=== PATIENT | male | born 1965 | race Caucasian/White ===

== ENCOUNTER 2019-07-17 07:44 | Outpatient (CLI) | payer OTHER, SELFPAY ==
--- NOTE | ~2019-07-17 | NM_ITS ---
EXAMINATION: NM jessica stress w perfusion DATE: 07/17/2019 13:14 INDICATION: Dyspnea on exertion. TECHNIQUE: Rest images were obtained following intravenous administration of 10.9 mCi Tc99m tetrofosm in (Myoview). The patient was infused intravenously with Lexiscan (regadenoson). Then, 29.7 mCi Tc99m tetrofosmin (Myoview) was administered intravenously, and stress images were obtained. Data was valentín nstructed into short axis and horizontal and vertical long axis SPECT images. Gated SPECT images were also obtained. COMPARISON: Chest CT 05/02/2015 FINDINGS: There is no definite reversible or fixed perfusion abnormality to suggest ischemia or infar ction. There is no segmental wall motion abnormality. Left ventricular ejection fraction measures 4 2%. IMPRESSION: 1. No definite ischemia or infarct. 2. Decreased left ventricular ejection fraction measuring 42%. Reviewed, dictated and finalized at location A.
--- NOTE | 2019-07-17 07:55 | EST_ITS ---
Patient Info Name: Stephan Martinez Age: 53 years : 1965 Gender: Male Ht: 72 in Wt: 240 lbs BSA: 2.38 m2 HR: 82 bpm BP: 188 / 116 mmHg Heart Rhythm: Sinus Rhythm Exam Date: 07/17/2019 10:15 AM Exam Location: [facility] Stress Patient Status: Outpatient Admit Date: 07/17/2019 Staff Ordering Physician: Jaycob Lerner DO Attending Provider: Jaycob Lerner DO Exercise Technologist: Martine Steen RDCS Exercise Physician: Jaycob Lerner DO Exam Type: CA stress jessica w NM Study Info Indications - DYSPNEA ON EXERTION A regadenoson stress test was performed. Summary 1. 1. Negative Lexiscan stress test for ischemic ST changes by ECG criteria. 2. 2. Baseline hypertension. 3. 3. Nuclear scan to follow and will be reported separately. Please correlate with it. 4. 4. Patient informed of the above results. Protocol: Lexiscan Stress ECG Details Stage: REST Duration (min): 1 min : 21 sec HR (bpm): 88 SBP (mmHg): --- DBP (mmHg): --- Stage: REST Duration (min): 2 min : 0 sec HR (bpm): 82 SBP (mmHg): 212 DBP (mmHg): 119 Stage: REST Duration (min): 18 min : 22 sec HR (bpm): 85 SBP (mmHg): 188 DBP (mmHg): 116 Stage: STAGE 1 Duration (min): 0 min : 59 sec HR (bpm): 94 SBP (mmHg): 213 DBP (mmHg): 132 Stage: RECOVERY Duration (min): 1 min : 0 sec HR (bpm): 100 SBP (mmHg): 213 DBP (mmHg): 132 Stage: RECOVERY Duration (min): 2 min : 0 sec HR (bpm): 97 SBP (mmHg): 188 DBP (mmHg): 119 Stage: RECOVERY Duration (min): 3 min : 0 sec HR (bpm): 98 SBP (mmHg): 186 DBP (mmHg): 114 Stage: RECOVERY Duration (min): 3 min : 17 sec HR (bpm): 96 SBP (mmHg): 186 DBP (mmHg): 114 Rest HR: 85 bpm Peak HR: 101 bpm Rest Sys BP: 188 mmHg Peak Sys BP: 213 mmHg Max Pred HR: 167 bpm % Max Pred HR: 60 % Target HR: 142 bpm Max RPP: 21,513 bpm*mmHg Termination Reason: Completed protocol Cardiac Symptoms: Shortness of breath Total Time: 1 min : 0 sec Rest Morales BP: 116 mmHg Peak Morales BP: 132 mmHg Total Dose: 0.4 mg Resting ECG Sinus rhythm, cannot rule out septal infarct, age indeterminate. Stress ECG No ST changes. Arrhythmias None. Report Signatures
--- NOTE | 2019-07-17 08:04 | ECHO_ITS ---
Patient Info Name: Stephan Martinez Age: 53 years : 1965 Gender: Male Ht: 74 in Wt: 240 lbs BSA: 2.41 m2 HR: 88 bpm BP: 185 / 122 mmHg Technical Quality: Fair Exam Date: 07/17/2019 8:24 AM Exam Location: [facility] Patient Status: Outpatient Admit Date: 07/17/2019 Staff Ordering Physician: Jaycob Lerner DO Mixing Place Supervisor: Jenny Jurado RDCS Attending Provider: Jaycob Lerner DO Referring Physician: Yann HANCOCK; Exam Type: CA echo doppler color flow Study Info Indications R06.09 - Other forms of dyspnea Complete two-dimensional, color flow and Doppler transthoracic echocardiogram is performed. Summary 1. Left ventricular chamber dimension is normal. 2. Left ventricular systolic function is normal, estimated at 60-65%. 3. There is moderately increased left ventricular wall thickness. 4. The left ventricular diastolic function is grade I diastolic dysfunction. 5. E/e' 14 is mildly elevated. 6. Left atrial chamber dimension is mildly enlarged. 7. Right atrial chamber dimension is mildly enlarged. 8. There is mild to moderate aortic valve regurgitation. 9. No pulmonary hypertension, estimated pulmonary arterial systolic pressure is 29 mmHg. 10. The aortic root size at the sinus of Valsalva is moderately dilated at 4.6 cm. 11. The prox ascending aorta size is moderately dilated at 4.5 cm. Left Ventricle E/e' 14 is mildly elevated. Left ventricular chamber dimension is normal. Left ventricular systolic function is normal, estimated at 60-65%. There is moderately increased left ventricular wall thickness. The left ventricular diastolic function is grade I diastolic dysfunction. Right Ventricle Right ventricular chamber dimension is normal. Right ventricular systolic function is normal. Left Atria Left atrial chamber dimension is mildly enlarged. Right Atria Right atrial chamber dimension is mildly enlarged. Aortic Valve The aortic valve is trileaflet. There is no aortic valve stenosis. There is mild to moderate aortic valve regurgitation. Pulmonic Valve There is no pulmonic regurgitation. Mitral Valve There is no mitral valve stenosis. There is no mitral valve regurgitation. Tricuspid Valve There is no tricuspid valve regurgitation. No pulmonary hypertension, estimated pulmonary arterial systolic pressure is 29 mmHg. Pericardium/Pleural There is no pericardial effusion. Inferior Vena Cava Normal inferior vena cava with >50% collapse upon inspiration consistent with normal right atrial pressure, 5 mmHg. Aorta The aortic root size at the sinus of Valsalva is moderately dilated at 4.6 cm. The prox ascending aorta size is moderately dilated at 4.5 cm. Left Ventricular Outflow Tract Name Value Normal LVOT 2D LVOT Diameter 2.4 cm LVOT Doppler LVOT Peak Gradient 5 mmHg LVOT Mean Gradient 3 mmHg LVOT VTI 22 cm LVOT VTI/AV VTI Ratio 0.9 LVOT Stroke Volume 99 ml LVOT CO 7.7 l/min
== END 2019-07-17 07:45 | disposition home or self-care (01) ==
PROVIDERS: PCP Family Medicine; Visit Provider Internal Medicine Cardiovascular Disease
DX: Z01.810 Encounter for preprocedural cardiovascular examination (principal); I45.10 Unspecified right bundle-branch block; I10 Essential (primary) hypertension; E11.9 Type 2 diabetes mellitus without complications; R94.31 Abnormal electrocardiogram [ECG] [EKG]; R06.09 Other forms of dyspnea; Z98.890 Other specified postprocedural states
CPT/HCPCS: 78452; 93017; 93306; A9502; J2785

== ENCOUNTER 2019-07-24 06:32 | Outpatient (CLI) | payer OTHER, SELFPAY ==
--- NOTE | ~2019-07-24 | CT_ITS ---
EXAMINATION: CTA chest DATE: 07/24/2019 07:04 INDICATION: Thoracic aortic aneurysm without rupture TECHNIQUE: Computed tomographic angiography (CTA) of the chest was performed with 100 mL Omnipque-350 intravenous contrast. Maximum intensity projection 3D-reconstructions of the aorta and other arterie s were constructed by the technologist on a separate workstation. The dose-length product (DLP) was 8 78.92 mGy-cm. Automated exposure control and iterative reconstruction technique were employed. COMPARISON: 05/02/2015 FINDINGS: There has been interval surgical therapy of the ascending aorta. The aortic root measures 5 .8 x 5.4 cm at the level of the main pulmonary artery. This previously measured 4.8 x 4.1 cm on the c omparison examination. There is no evidence of aortic dissection. The heart size is normal. There is mild dependent atelectasis. No pleural effusion or pneumothorax is identified. The heart size is norm al. There is mild thoracic spondylosis. A stable low-attenuation mass of the right adrenal gland is consistent with an adenoma. Stones are present in the nondistended gallbladder. IMPRESSION: 1. Interval treatment of the previously described aortic dissection. 2. Fusiform aneurysm of the ascending aorta measuring up to 5.8 cm at the level of the main pulmonary artery, enlarged since the comparison examination. Reviewed, dictated and finalized at location A.
[2019-07-24 06:56] LABS: Estimated Glomerular Filt Rate 42
== END 2019-07-24 06:33 | disposition home or self-care (01) ==
LOC: ANHIMG 06:34
PROVIDERS: PCP Family Medicine; Visit Provider Internal Medicine Cardiovascular Disease
DX: I71.2 Thoracic aortic aneurysm, without rupture (principal)
CPT/HCPCS: 36415; 71275; Q9967

== ENCOUNTER 2019-11-16 08:08 | Outpatient (CLI) | payer OTHER, SELFPAY ==
[2019-11-16 09:41] LABS: Basophils Absolute Auto 0.1 K/mm3 (0.0-0.1); Basophils Percent Auto 0.7 % (0.2-1.2); Eosinophils Absolute Auto 0.3 K/mm3 (0-0.3); Eosinophils Percent Auto 4.2 % (0-4.4); Hematocrit 45.4 % (42.0-52.0); Hemoglobin 14.9 g/dL (14.0-18.0); Immature Granulocyte Absolute 0.02 K/mm3 (0.00-0.031); Immature Granulocyte Percent A 0.3 % (0-0.5); Lymphocytes Absolute Auto 1.92 K/mm3 (0.9-3.2); Lymphocytes Percent Auto 27.7 % (18.3-44.2); Mean Corpuscular HGB Conc 32.8 g/dl (32-36); Mean Corpuscular Hemoglobin 26.5 pg (26-34); Mean Corpuscular Volume 80.6 fl (80-100); Mean Platelet Volume 9.3 fl (7.4-10.4); Monocytes Absolute Auto 0.6 K/mm3 (0.1-0.6); Monocytes Percent Auto 9.1 % (2.6-8.5); Platelet Count Result 300 k/mm3 (150-375); Red Blood Count 5.63 M/mm3 (4.6-6.20); Red Cell Distribution Width 13.9 % (11.5-14.5); White Blood Count 6.9 K/mm3 (4.5-10.0)
[2019-11-16 09:51] LABS: Albumin Level 4.4 g/dL (3.5-5.1)
[2019-11-16 09:54] LABS: Blood Urea Nitrogen 22 mg/dL (9-20); Calcium 9.2 mg/dL (8.4-10.2); Carbon Dioxide 27 mmol/L (22-30); Chloride 100 mmol/L (98-107); Estimated Glomerular Filt Rate 53; Glucose 93 mg/dL (75-110); Sodium 136 mmol/L (137-145)
[2019-11-16 10:44] LABS: Hemoglobin A1C 5.2 % (<5.7)
[2019-11-16 11:08] LABS: Urine Cotinine NEGATIVE
== END 2019-11-16 08:09 | disposition home or self-care (01) ==
PROVIDERS: Anesthesiology; PCP Family Medicine; Visit Provider Orthopaedic Surgery
DX: M16.12 Unilateral primary osteoarthritis, left hip (principal); I10 Essential (primary) hypertension
CPT/HCPCS: 36415; 80048; 80307; 82040; 83036; 85025; 86850; 86900; 86901; 87081

== ENCOUNTER 2019-11-24 00:26 | Outpatient (CLI) | payer OTHER, SELFPAY ==
[2019-11-25 14:20] LABS: SARS-CoV-2 RNA PCR Negative
== END 2019-11-24 00:27 | disposition home or self-care (01) ==
LOC: ANHCOVIDDT 00:26
PROVIDERS: PCP Family Medicine; Visit Provider Orthopaedic Surgery
DX: Z01.818 Encounter for other preprocedural examination (principal); Z11.59 Encounter for screening for other viral diseases
CPT/HCPCS: 87635; C9803; U0003

== ENCOUNTER → 2020-08-14 12:10 | Outpatient (CLI) | payer OTHER, SELFPAY ==
[2020-08-15 17:57] LABS: SARS-CoV-2 RNA PCR Negative
== END ==
PROVIDERS: PCP Family Medicine; Visit Provider Family Medicine
DX: Z20.822 Contact with and (suspected) exposure to COVID-19 (principal); B34.9 Viral infection, unspecified
CPT/HCPCS: C9803; U0003; U0005

== ENCOUNTER 2022-02-10 08:47 | Outpatient (CLI) | payer OTHER, SELFPAY ==
[2022-02-10 09:26] LABS: Cholesterol 153 mg/dL (0-200); HDL Direct 38 mg/dL; Triglycerides 46 mg/dL (<150)
[2022-02-10 09:36] LABS: LDL Cholesterol Direct 90 mg/dL
== END 2022-02-10 08:48 | disposition home or self-care (01) ==
LOC: ANHLAB 08:51
PROVIDERS: PCP Physician Assistant; Visit Provider Internal Medicine Cardiovascular Disease
DX: I10 Essential (primary) hypertension (principal)
CPT/HCPCS: 36415; 80061

== ENCOUNTER 2022-02-19 14:26 | Outpatient (CLI) | payer OTHER, SELFPAY ==
--- NOTE | ~2022-02-19 | CT_ITS ---
EXAMINATION: CTA chest DATE: 02/19/2022 15:04 INDICATION: Aortic aneurysm. TECHNIQUE: Computed tomographic angiography (CTA) of the chest was performed without and with 100 mL Omnipaque-350 intravenous contrast. Automated exposure control and iterative reconstruction technique were employed. The dose-length product was 1520.99 mGy-cm. Maximum intensity projection 3D-reconstru ctions of the aorta and other arteries were constructed by the technologist on a separate workstation . COMPARISON: Chest CT 07/24/2019 FINDINGS: There is elevation of right hemidiaphragm. The lungs demonstrate mild atelectasis. There ar e nodules in the lungs measuring up to 3 mm, likely benign. No pleural effusion. There is a 7 mm nodu le in right thyroid lobe, likely not clinically significant. Cardiomegaly is noted. No pericardial ef fusion. The central pulmonary arteries are enlarged, consistent with pulmonary arterial hypertension. There are gallstones in the gallbladder, which is normal in size. There is cortical thinning of the kidneys. There are surgical changes of mid ascending aorta. The right measures 4.6 cm of the sinuses of Valsalva, 5.4 cm at the sinotubular junction, 6.1 cm in the proximal ascending aorta, 4.8 cm in th e descending aorta distal to the surgical change, 3.2 cm at the aortic isthmus, and 3.0 cm in the mid descending aorta. IMPRESSION: 1. Fusiform aneurysm of ascending aorta measuring up to 6.1 cm, not significantly changed from 6.0 cm on 07/24/19. Surgical changes of ascending aorta. Reviewed, dictated and finalized at location A. IMPRESSION: 1. Fusiform aneurysm of ascending aorta measuring up to 6.1 cm, not significant ly changed from 6.0 cm on 07/24/19. Surgical changes of ascending aorta.
[2022-02-19 14:49] LABS: Estimated Glomerular Filt Rate 37
== END 2022-02-19 14:27 | disposition home or self-care (01) ==
PROVIDERS: PCP Physician Assistant; Visit Provider Internal Medicine Cardiovascular Disease
DX: I71.21 Aneurysm of the ascending aorta, without rupture (principal); Z98.890 Other specified postprocedural states
CPT/HCPCS: 71275; Q9967

== ENCOUNTER 2022-06-23 07:45 | Outpatient (RCR) | payer OTHER, SELFPAY ==
--- NOTE | 2022-08-19 15:09 | PCPTNOTE ---
Patient did not show up for scheduled evaluation this date.
== END 2022-09-07 10:41 | disposition home or self-care (01) ==
LOC: ANHPT 07:45
PROVIDERS: PCP Physician Assistant; Visit Provider Physician Assistant
DX: Z91.81 History of falling (principal)
CPT/HCPCS: 99199

== ENCOUNTER 2023-06-28 08:58 | Outpatient (CLI) | payer OTHER, SELFPAY ==
--- NOTE | 2023-06-28 09:07 | ECHO_ITS ---
Patient Info Name: Stephan Martinez Age: 57 years : 1965 Gender: Male Ht: 74 in Wt: 245 lbs BSA: 2.44 m2 HR: 99 bpm BP: 163 / 117 mmHg Technical Quality: Fair Exam Date: 06/28/2023 9:15 AM Exam Location: Echo Lab Patient Status: Outpatient Admit Date: 06/28/2023 Staff Ordering Physician: Jaycob Lerner DO Cracking Still Operator: Jenny Jurado RDCS Attending Provider: Jaycob Lerner DO Referring Physician: Yann HANCOCK; Exam Type: CA echo doppler color flow Study Info Indications Z95.2 - Presence of prosthetic heart valve Complete two-dimensional, color flow and Doppler transthoracic echocardiogram is performed. Summary 1. Complete two-dimensional, color flow and Doppler transthoracic echocardiogram is performed. 2. Left ventricular chamber dimension is normal. 3. Left ventricular systolic function is normal, estimated at 60-65%. 4. There is moderate concentric increased left ventricular wall thickness. 5. The left ventricular diastolic function is grade I diastolic dysfunction. 6. E/e' 18 is elevated. 7. Left atrial chamber dimension is mildly enlarged. 8. Bioprosthetic aortic valve. 9. There is trace tricuspid valve regurgitation. 10. No pulmonary hypertension, estimated pulmonary arterial systolic pressure is 33 mmHg. 11. Small linear echogenicity noted on ventricular side of pulmonic valve measuring 0.4-.06 cm which could be artifact vs vegetation. Clinical correlation is advised. 12. There is trace pulmonic regurgitation. Left Ventricle E/e' 18 is elevated. Left ventricular chamber dimension is normal. Left ventricular systolic function is normal, estimated at 60-65%. There is moderate concentric increased left ventricular wall thickness. The left ventricular diastolic function is grade I diastolic dysfunction. Right Ventricle Right ventricular chamber dimension is normal. Right ventricular systolic function is normal. Left Atria Left atrial chamber dimension is mildly enlarged. Right Atria Right atrial chamber dimension is normal. Aortic Valve Bioprosthetic aortic valve. There is no bioprosthetic aortic valve stenosis. There is no regurgitation of the bioprosthetic aortic valve. Pulmonic Valve Small linear echogenicity noted on ventricular side of pulmonic valve measuring 0.4-.06 cm which could be artifact vs vegetation. Clinical correlation is advised. There is trace pulmonic regurgitation. Mitral Valve There is no mitral valve stenosis. There is no mitral valve regurgitation. Tricuspid Valve There is trace tricuspid valve regurgitation. No pulmonary hypertension, estimated pulmonary arterial systolic pressure is 33 mmHg. Pericardium/Pleural There is no pericardial effusion. Inferior Vena Cava Normal inferior vena cava with >50% collapse upon inspiration consistent with normal right atrial pressure, 5 mmHg. Aorta The aortic root size at the sinus of Valsalva is normal. Left Ventricular Outflow Tract Name Value Normal LVOT 2D LVOT Diameter 2.0 cm LVOT Doppler LVOT Peak Gradient 5 mmHg LVOT Mean Gradient 3 mmHg LVOT VTI 19 cm LVOT VTI/AV VTI Ratio 0.8 LV
== END 2023-06-28 08:59 | disposition home or self-care (01) ==
LOC: ANHCARD 08:59
PROVIDERS: PCP Physician Assistant; Visit Provider Internal Medicine Cardiovascular Disease
DX: R93.1 Abnormal findings on diagnostic imaging of heart and coronary circulation (principal); I07.1 Rheumatic tricuspid insufficiency; I37.1 Nonrheumatic pulmonary valve insufficiency; Z95.2 Presence of prosthetic heart valve
CPT/HCPCS: 93306

== ENCOUNTER 2024-02-17 10:13 | Emergency (ER) | payer OTHER, SELFPAY ==
[2024-02-17 10:22] VITALS: BP 133/94; PULSE 70; RESP 16; TEMP 35.8; O2SAT 98
--- NOTE | 2024-02-17 10:33 | ED.GENADULT ---
HPI - General Adult General Chief complaint: Dental/Oral Stated complaint: bump on tongue Time Seen by Provider: 02/17/24 10:33 Source: patient, RN notes reviewed and old records reviewed Mode of arrival: ambulatory Limitations: no limitations History of Present Illness HPI narrative: 58-year-old male presents to the [facility] with a lesion, raised to the top right aspect of the tongue. States has been there for over a month. Reports that he sent a picture to his primary care provider who referred him to urgent care Patient states a couple of days ago he bit his tongue, started bleeding. Onset (ago): month(s) (1+) Related Data Home Medications Medication Instructions Recorded Confirmed carvedilol 25 mg tablet 25 mg PO Q12H 01/28/22 02/17/24 aspirin 81 mg tablet,delayed 81 mg PO DAILY 10/08/22 02/17/24 release (Adult Aspirin Regimen) Allergies Allergy/AdvReac Type Severity Reaction Status Date / Time No Known Allergies Allergy Verified 02/17/24 10:16 Review of Systems Review of Systems: All systems reviewed & are unremarkable except as noted in HPI and below Constitutional: Constitutional: Reports no additional constitutional complaints Eyes: Eyes: Reports no additional eye complaints ENT: Reports as per HPI and Reports other (Tongue lesion) Cardiovascular: Cardiovascular: Reports no additional cardiovascular complaints, Denies chest pain and Denies dyspnea Respiratory: Respiratory: Reports no additional respiratory complaints, Denies chest congestion, Denies cough and Denies dyspnea Gastrointestinal: Gastrointestinal: Reports no additional gastrointestinal complaints, Denies abdominal pain, Denies nausea and Denies vomiting Musculoskeletal: Musculoskeletal: Reports no additional musculoskeletal complaints Integumentary/Breasts: Skin/Breast: Reports system reviewed and no additional complaints, except as docu Neurologic: Reports system reviewed and no additional complaints, except as documented Psychiatric: Psychiatric: Reports no additional psychiatric complaints Allergic/Immunologic: Allergic/Immunologic: Reports no additional allergic/immunologic complaints PMFSH Past Medical History Medical History Osteoarthritis of hips, bilateral Surgical History Surgical History H/O heart surgery ? 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 There is no relevant family history pertinent to the patient complaint. Exam Const: General: cooperative, healthy appearing, comfortable, no acute distress, well developed, alert and well nourished Nutritional Appearance: well nourished Orientation/consciousness: patient oriented x3 Limitations: no limitations HENMT: Head: normal to inspection Ears: hearing grossly normal bilaterally and external ears normal Face/Nose/Sinus: Normal external nose present, normal facial exam and face symmetric Face and sinus: normal facial exam and face symmetric Mouth/tongue images: 1. tongue lesion. Raised. Same color as the rest of the tongue. Eyes: General: appearance normal, both eyes and all related structures Alignment and Position: alignment normal Periorbital: periorbital findings normal Neck: Neck: normal visual inspecti
== END 2024-02-17 10:52 | disposition home or self-care (01) ==
PROVIDERS: Emergency Provider Nurse Practitioner; PCP Physician Assistant
DX: K14.9 Disease of tongue, unspecified (principal); M16.0 Bilateral primary osteoarthritis of hip; Z79.82 Long term (current) use of aspirin
CPT/HCPCS: 99211; G0463

== ENCOUNTER 2024-06-18 18:50 | Emergency (ER) | payer OTHER, SELFPAY ==
--- NOTE | ~2024-06-18 | CT_ITS ---
EXAMINATION: CTA abdomen pelvis DATE: 06/18/2024 20:16 RUNNING INSTRUCTOR INDICATION: Left flank pain TECHNIQUE: Computed tomographic angiography (CTA) of the abdomen and pelvis was performed, with 100 m L Omnipaque-350 intravenous contrast. The dose-length product was 1698.69 mGy-cm. Maximum intensity p rojection 3D-reconstructions of the aorta and other arteries were constructed by the technologist on a separate workstation. FINDINGS/OBSERVATIONS: LOWER CHEST: Prosthetic valve is detected within the aortic position. The heart is enlarged, without pericardial effusion. Bibasilar atelectasis. LIVER: The liver enhances homogeneously, and is markedly enlarged measuring 25 cm in longitudinal dimension. GALLBLADDER AND BILIARY SYSTEM: The gallbladder is distended, containing multiple layering stones, and is otherwise unremarkable. PANCREAS: The pancreas enhances homogeneously and is without ductal dilatation. SPLEEN: The spleen enhances homogeneously and is not enlarged measuring 8 cm in longitudinal dimension. KIDNEYS: A 7.4 mm calculus is identified within the lower pole of the left kidney. The remainder of the bilateral kidneys otherwise enhance symmetrically without hydronephrosis or price tional renal calculi. ADRENAL GLANDS: Unremarkable. GASTROINTESTINAL TRACT: Colonic diverticulosis without surrounding inflammatory change. APPENDIX: The air-filled appendix is of normal caliber (axial series, images 134-154). VASCULATURE: Unremarkable. LYMPH NODES: No pathologically enlarged or morphologically suspicious lymph nodes within the retroperitoneum or at the root of the mesentery. PELVIC STRUCTURES: The bladder is minimally distended, and otherwise unremarkable. The prostate gland is not enlarged. BODY WALL AND MUSCULOSKELETAL: No significant degenerative disease within the lower thoracic or lumbosacral spine. IMPRESSION: 7.4 mm nonobstructing calculus within the lower pole of the left kidney. Colonic diverticulosis without surrounding inflammatory change. Normal appendix. Cholelithiasis without CT evidence of cholecystitis Reviewed, dictated and finalized at location A. ING INSTRUCTOR
--- NOTE | ~2024-06-18 | XR_ITS ---
CHEST RADIOGRAPH CLINICAL HISTORY: LUQ pain, poss lobar PNA . COMPARISON: None available TECHNIQUE: Single portable view of the chest. FINDINGS Sternal wires and mediastinal clips are identified, the wires are midline and intact. A prosthetic valve is identified in the aortic position. The remainder of the cardiomediastinal silhouette is enlarged, but otherwise unremarkable. Elevation of the right hemidiaphragm with adjacent compressive atelectasis. The remainder of the lungs are clear IMPRESSION: No focal infiltrate or effusion. Reviewed, dictated and finalized at location A. RVISOR PLEATING
--- OUTSIDE RECORDS SUMMARY | 2024-06-18 18:52 | XMS_ITS | Clinical Summary ---
Author Organization [facility] Address [address] [address] Care Team Providers Care Solvent Station Attendant Name Role Phone Unavailable Primary Care Provider Unavailabl e Source Comments [facility],non-owned Affiliates and Associated Physician Practices is amultiple site organization consisting of ambulatory clinics and hospital sitesin [place], [place], [place] and [place]. This disclosure is being madepursuant to the Care Everywhere program and may not contain all information available regarding this patient. Last updated 18.[facility] Allergies No known active allergies Medications * Be aware that medications may not be up to date on this document. Alwaysverify current medications with the patient. Medication Sig Dispensed Refills Start Date End Date Status aspirin (ASPIRIN) 81 MG tablet Take 81 mg by mouth once daily Active hydroCHLOROthiazide (HYDRODIURIL) 25 MG tablet TAKE 1 TABLET BY MOUTH EVERY DAY 30 Tab 5 12/24/2015 Active carvedilol (COREG) 25 MG tablet TAKE 1 TABLET BY MOUTH TWICE DAILY(WITH MORNING AND EVENING MEAL) 60 tablet 11 03/08/2017 Active hydroCHLOROthiazide (HYDRODIURIL) 25 MG tablet TAKE 1 TABLET BY MOUTH DAILY 30 tablet 11 04/20/2017 Active warfarin (Coumadin) 5 MG tablet Take 2 (two) tablets by mouth Two times a week 10/08/2022 Active amLODIPine (Norvasc) 5 MG tablet Take 1 (one) tablet by mouth once daily 10/09/2022 Active ciprofloxacin (Cipro) 500 MG tablet 12/03/2022 Active FeroSul 325 (65 Fe) MG tablet 10/27/2022 Active Active Problems Problem Noted Date Diagnosed Date Cervical myelopathy 08/28/2022 12/10/2022 Bacteremia due to Pseudomonas 05/20/2022 Overview (12/10/2022): Last Assessment & Plan: - Plan to continue on chronic suppression with Ciprofloxacin 500 mg BID. He previously completed a 10 week course of IV Cefepime on 07/28/22. Started on chronic suppression 07/29/22 - Concern from an ID standpoint is the possible vegetation seen on the aorta as well as newly placed graft. Due to high risk of graft seeding would plan to continue suppression at this time as he continues to follow with Cardiothoracic surgery. - Labs today: CBC/CMP/ESR/CRP - ECG today with QTc of 446. One of the leads on the ECG was not working, reviewed ECG with attending no concern based on current ECG from today. - Will follow back in 3 months - Discussed again that at any point he develops onset of SOB or chest pain to please present to ER with concern for dissection based on his cardiac history and use of flouroquinolones - We discussed the rational for treatment, culture results, risk of recurrent infection, signs/symptoms of recurrent infection, and to contact ID clinic with any questions or concerns between now and his next visit. Depression 05/20/2022 12/10/2022 Overview (12/10/2022): Last Assessment & Plan: -Patient's mood is very low given long hospitalization and now bacteremia. (History of tearful & feeling depressed) -Ongoing celexa (w baseline QTc) -patient is [employer] and is agreeable to having Spiritual care support Pulmonary embolism 05/18/2022 12/10/2022 Overview (12/10/2022): Last Assessment & Plan: -CT scan-C/A/P- (05/18) with new finding of PE - subsegmental left pulmonary embolism. There is no evidence of right heart strain. -LE venous duplex (05/19) positive right calf DVT -Goal INR 2.0-3.0 -Last night, INR = 2.2 Atrial fibrillation 04/18/2022 12/10/2022 Overview (12/10/2022): Last Assessment & Plan: -Most likely AF with the recent surgery 03/31/22 -Continues on Coumadin & amiodarone therapy (200 mg daily) -Continues in NSR per telemetry Anemia 04/18/2022 12/10/2022 Overview (12/10/2022): Last Assessment & Plan: Expected, due to recent surgery (Post-op ABLA) Labs now switched to twice weekly, during hospital stay Consider transfusing for Hgb < 7 & symptomatic Expect slow uptrend Chronic hepatitis C virus infection 06/20/2015 12/10/2022 Overview (12/10/2022): Last Assessment & Plan: - Patient reports that he has not started any treatment for Hepatitis C. - He reports that when he was last seen by their office, medications were to be mailed out to him. - Per chart review due to insurance he needed to sign Hep C patient contract. At the time this was to be obtained reported that he was in the ICU. - Will reach out to Hepatology to see if medications can be started, or if he would need to follow back up. Essential hypertension 05/30/2015 S/P thoracic aortic aneurysm repair 05/30/2015 Impotence 10/04/2014 Leg pain 09/19/2014 Edema 09/19/2014 Cellulitis and abscess 05/14/2014 Overview (02/07/2015): Immunizations Name Administration Dates Next Due TDAP (7yrs+) 05/14/2014 Family History Medical History Relation Name Comments Negative Family History Other Relation Name Status Comments Other Social History Tobacco Use Types Packs/Day Years Used Date Smoking Tobacco: Never Smokeless Tobacco: Never Tobacco Cessation:Counseling Given: Not Answered Alcohol Use Standard Drinks/Week Comments No 0 (1 standard drink = 0.6 oz pur e alcohol) quit 1999 Sex and Gender Information Value Date Recorded Sex Assigned at Not on file Gender Identity Not on file Sexual Orientation Not on file Last Filed Vital Signs Vital Sign Reading Time Taken Comments Blood Pressure 169/100 01/07/2023 7:44 AM CDT Pulse 78 01/07/2023 7:44 AM CDT Temperature 37 C (98.6 F) 05/19/2014 8:26 AM [employer] Respiratory Rate 20 01/08/2016 9:31 AM CDT Oxygen Saturation 98% 03/08/2017 9:57 AM CDT Inhaled Oxygen Concentration - - Weight 115.4 kg (254 lb 6.4 oz) 03/08/2017 9:57 AM CDT Height 188 cm (6' 2 ) 03/08/2017 9:57 AM CDT Body Mass Index 32.66 03/08/2017 9:57 AM CDT Plan of Treatment Health Maintenance Due Date Last Done Comments COLOGUARD (AGES 45-75) - COL ON CA SCREENING 1965 COLON MONITORING 1965 COLONOSCOPY - COLON CA SCREENING 1965 CT COLONOGRAPHY - COLON CA SCREENING 1965 Colorectal Cancer Screening 1965 FIT - COLON CA SCREENING 1965 FLEX SIG - COLON CA SCREENING 1965 HIV SCREENING 1980 HEPATITIS B VACCINE (1 of 3 - 19+ 3-dose series) 1984 PNEUMOCOCCAL VACCINE 50+ (1 of 2 - PCV) 1984 PNEUMOCOCCAL VACCINE (1 of 2 - PCV) 1984 ZOSTER VACCINE (1 of 2) 12/31/2015 LIPID TESTING 10/03/2019 10/02/2014 COVID-19 VACCINE (1 - 2023-2 5 season) 2024 INFLUENZA VACCINE (#1) 2024 04/09/2020 DEPRESSION SCREENING 05/10/2024 DTAP/TDAP/TD VACCINES (2 - T d or Tdap) 05/14/2024 05/14/2014 HEPATITIS C SCREENING Completed 06/20/2015 HIB VACCINE Aged Out No longer eligi ble based on patient's age to complete this topic HPV VACCINE Aged Out No longer eligi ble based on patient's age to complete this topic MENINGOCOCCAL (Group B) VACCINE Aged Out No longer eligible based on patient's age to complete this topic MENINGOCOCCAL VACCINE Aged Out No nadiya олег eligible based on patient's age to complete this topic Procedures Procedure Name Priority Date/Time Associated Diagnosis Comments LIPID PROFILE Routine 10/02/2014 8:39 AM CDT Leg pain, left Edema from Last 3 Months or Most Recently Relevant to Health Maintenance Results * LIPID PROFILE (10/02/2014 8:39 AM CDT) Cholesterol 159 <200 mg/dL 10/02/2014 9:02 AM CDT [facility] Triglycerides 75 <150 mg/dL 10/02/2014 9:02 AM CDT [facility] HDL Cholesterol 50 >40 mg/dL 10/02/2014 9:02 AM T [facility] LDL Calculated 94 <130 mg/dL 10/02/2014 9:02 AM CDT [facility] VLDL Calculated 15 <=30 mg/dL 10/02/2014 9:02 AM T [facility] Chol HDL Ratio 3.2 <4.5 10/02/2014 9:02 AM T [facility] LDL/HDL Ratio 1.9 <5.0 10/02/2014 9:02 AM T [facility] Blood BLOOD SPECIMEN / Unknown Lab Venipuncture / Unknown 10/02/2014 8:39 AM CDT 10/02/2014 8:43 AM CDT Justin Duque MD LAB - CHEMISTRY [facility] Organization Address City/State/ZIP Co de Phone Number [facility] [address] [place] [id number] from Last 3 Months or Most Recently Relevant to Health Maintenance Additional Health Concerns Infection Onset Date Last Indicated MRSA Comment:05/17/14 abscess; poa; clinda susp 05/17/2014 05/17/2014 Advance Directives * Full Code (Latest Code Status on File) Date Activated Date Inactivated Comments 05/15/2014 2:03 AM 05/19/2014 3:07 PM
--- OUTSIDE RECORDS SUMMARY | 2024-06-18 18:52 | XMS_ITS | Referral Summary ---
Author Organization [facility] Address [address] [place] [address] Care Team Providers Care Motion Picture Projectionist Apprentice Name Role Phone Jaycob Lerner DO Unavailable Rose Barker Primary Care Provider + Karo Perry MD Unavailable Unknown, Notinfile Unavailable Unavailable Miscellaneous, Not In File Unavailable Unava ilable Allergies No known active allergies Medications aspirin 81 mg chewable tabletIndicatio ns:prevention of thrombosis Take 1 tablet (81 mg total) by mouth daily 30 tablet 11 2 Active Additional Information Patient not taking.Reported on 12/03/2022 atorvastatin (LIPITOR) 40 mg tablet Take 1 tablet (40 mg total) by mouth nightly 30 tablet 1 3 Active Additional Information Patient not taking.Reported on 08/13/2022 carvediloL (COREG) 25 mg tablet Take 1 tablet (25 mg total) by mouth 2 (two) times a day with meals 60 tablet 1 3 Active amLODIPine (NORVASC) 5 mg tabletIndicatio ns:hypertension Take 1 tablet (5 mg total) by mouth daily 30 tablet 1 3 Active citalopram (CeleXA) 20 mg tabletIndicatio ns:major depressive disorder Take 1 tablet (20 mg total) by mouth nightly 30 tablet 1 3 Active Additional Information Patient not taking.Reported on 08/13/2022 warfarin (COUMADIN) 4 mg tabletIndicatio ns:Venous Thrombosis,Prev ention of VTE recurrence Take 2 tablets (8 mg total) by mouth daily 60 tablet 1 3 Active Additional Information Patient taking differently:8 mg oral Daily,10 mg two days a week and 8 mg 5 days per week., Indications: Venous Thrombosis, Prevention of VTE recurrence, Reported on 08/13/2022 Mavyret 100-40 mg tablet per tablet TAKE 3 TABLETS BY MOUTH ONCE DAILY FOR 8 WEEKS 3 Active FeroSuL 325 mg (65 mg iron) tablet Take 1 tablet (325 mg total) by mouth daily with breakfast 3 Active warfarin (COUMADIN) 5 mg tablet Take 2 tablets (10 mg total) by mouth 2 (two) times a week 3 Active ciprofloxacin (CIPRO) 500 mg tabletIndicatio ns:Nuclear sclerosis of both eyes 3 Active Active Problems Problem Noted Date Diagnosed Date Nuclear sclerosis of both eyes 03/12/2023 Assessment & Plan (03/12/2023 4:07 PM CDT): Educated on minimal changes, not visually significant. Elects to continue without distance specs, to wear OTC +2.00 Readers No corneal defects, recommended goggles for protection when working with tools. Avoid drops that get the red out , use ATs PRN Lesion of right lower eyelid 03/12/2023 Assessment & Plan (06/06/2023 12:53 AM SHOP COOPER): Risks, benefits and alternatives were discussed. Risks included but were not limited to pain, bleeding, scarring, recurrence, and possible need for additional procedures. Following this discussion, the patient wishes to proceed with right lower eyelid (RLL) lesion excision. This was performed today without any complications. They will follow-up as needed. Assessment & Plan (03/12/2023 4:06 PM CDT): Previous hordeolum/chalazion right lower eyelid (RLL) versus cystic change central. Educated on findings and pt interested in removal, refer to oculoplastics Medication monitoring encounter 12/07/2022 Blurred vision, bilateral 12/07/2022 Assessment & Plan (12/07/2022 8:31 AM CDT): -Referral placed to ophthalmology as patient has not seen one in several years from what he can recall. Skin lesion of right arm 12/07/2022 Assessment & Plan (12/07/2022 8:31 AM CDT): - Referral was previously placed for Dermatology but upon review he is scheduled to follow in March. Will reach out to Dermatology and see if there is anyway he can be seen sooner to evaluate ulcer on his right forearm. Weakness of right lower extremity 08/28/2022 Cervical myelopathy 08/28/2022 Bacteremia due to Pseudomonas 05/20/2022 Assessment & Plan (12/07/2022 8:29 AM CDT): - Plan to continue on chronic suppression [...] concerns between now and his next visit. Assessment & Plan (08/21/2022 5:42 AM CDT): - Plan to continue on chronic suppression with Ciprofloxacin 500 mg BID. Previously completed 10 week course of IV Cefepime on 07/28/22. - Concern from an ID standpoint is the possible vegetation seen on the aortic as well as graft. Due to high risk of graft seeding would plan to continue suppression at this time as he continues to follow with Cardiothoracic surgery. - Labs from 07/29 and 08/05/22 were reviewed. No labs today. - ECG was obtained - Will follow back in 2 months - Will have labs completed the week of 08/31/22 at [facility]. Orders sent. - Discussed that we have attempted to reach out to Rose Barker NP with no success. He is scheduled to follow with her and he will let her know that he is on Ciprofloxacin which can effect the INR. - Discussed that at any point he develops onset of SOB, chest pain to please present to ER with concern for dissection based on his cardiac history and use of flouroquinolones - We discussed the rational for treatment, culture results, risk of recurrent infection, signs/symptoms of recurrent infection, and to contact ID clinic with any questions or concerns between now and his next visit. Assessment & Plan (07/10/2022 10:13 AM SHOP COOPER): - Plan to continue IV Cefepime at this time, at last visit it was discussed that we would plan to compete a total of 8 weeks prior to stopping IV antibiotics. - As of today he has completed a total of 7 weeks. - Will plan to stop IV antibiotics on 07/14/22 per discussion with pt and his on Wednesday. - was not present for visit today. Discussed with patient that we have a few options. First option would be that we stop IV antibiotics at 8 weeks followed by no suppression. Second option is that if he does not want to take PO Ciprofloxacin we could complete a total of 10 weeks IV antibiotics and then stop. If he would like to take Ciprofloxacin then we would plan to stop IV antibiotics at the 8 week natalya (07/14/22) and switch to Ciprofloxacin 500 mg BID. Did discuss as mentioned above our concern with the use of fluoroquinolones and the association between aortic aneurysm and rupture/dissection and fluoroquinolone use poses a risk in this patient who already has a history of aortic dissection. - Labs today: CBC/CMP - ECG today to monitor QTc with plans to possibly start Ciprofloxacin. Previous ECG was completed on 05/23/22: QTc: 486. - Will reach back out to Dr. Perry in regards to what needs to exactly be monitored while patient is on suppression with Ciprofloxacin - Follow-up in 1 month - Will follow-up with patient on Wednesday to discuss with and determine final plan for antibiotics. - Will follow-up on RUBINA scheduled for 07/14/22. - Discussed with patient the rational for treatment, culture results, risk of recurrent infection, signs/symptoms of recurrent infection, and to contact ID clinic with any questions or concerns Assessment & Plan (06/12/2022 12:55 PM SHOP COOPER): - Plan to continue IV Cefepime at this time, will plan to complete at last a minimum of 6 weeks, may possibly extend to complete 8 weeks pending discussion with CTS - Will continue IV cefepime until follow-up with ID - Will reach out to Dr. Perry regarding the graft, and echodensity that was found on the RUBINA (vegetation vs suture) in regards to chronic suppression - As mentioned above there is concern with chronic suppression requiring the use of a fluoroquinolone given the patients history of aortic dissection - There was discussion of a PET scan to evaluate the patients risk of residual infection of the graft material. To date this has not been completed. - There are a few options that we can proceed with from an ID standpoint. We can continue the IV Cefepime and switch to PO suppression with Ciprofloxacin at the 6 week natalya, this would require close monitoring 2/2 history of aortic dissection, or may continue Cefepime with PET scan to evaluate risk of residual infection and pending images could then decide to proceed with suppression or no suppression and monitor. If we decide to not suppress would recommend longer course of IV Cefepime (8-10 weeks) then would stop and monitor off antibiotics. Would monitor for 1 year off antibiotics. - Will continue with weekly CBC/CMP while on IV Cefepime - Discussed with patient the rational for treatment, culture results, risk of recurrent infection, signs/symptoms of recurrent infection, and to contact ID clinic with any questions or concerns Assessment & Plan (06/02/2022 11:06 AM SHOP COOPER): - Appreciate ID consult 05/20 w/ sign off 05/23 as below: Infectious Disease Team: General 3 Infectious Disease Attending: Dr. Susana Comer Medication Recommendations: Drug(s): Cefepime 2 grams IV every 12 hours Duration 6 weeks from 05/19. End date 06/30/22 Firm Stop (Yes/No): no Anticipated Stop Date (note, the following date does not imply an order to stop on that date): 06/29 Labs/Frequency to be Monitored: CBC once a week and CMP once a week Imaging Recommended Before Follow Up (include clinical question to be answered by imaging): no Summary of Consultation: 56 y.o. 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 Discharged to [facility] 04/29/2022 and signed out AMA 05/02. He fell at home and found to have R iliacus and body wall hematoma that had slightly decreased from 04/2022 scan. Transferred to [facility] 05/04. ....Plan will be for at least 6 weeks of cefepime and consider a PET as outpatient to evaluate if need for suppression. RUBINA done 05/22 (result pending). Follow Up Plan: fax results to [phone], follow up with Dr. Maryanne KNOX in 2 weeks, After discharge additional questions can be directed to the clinic at [phone], and Patient has been educated about the risks and benefits of IV antibiotics (OPAT) Assessment & Plan (05/21/2022 12:17 PM SHOP COOPER): 05/18 Blood cultures positive PSEUDOMONAS AERUGINOSA 2 of 2 bottles sensitive to cefepime Daily blood cultures until negative 48 hours. Appreciate ID consult 05/20: Recommendations: - Follow up repeat BCx. - Increase cefepime to 2 gm IV q 8 hr. - Stop vancomycin. - Anticipate at least 6 weeks of cefepime. - After completion of acute treatment with cefepime, would consider oral suppression. I initiated a discussion with patient regarding long-term oral suppression. However the only drug class active against Pseudomonas is the quinolones and this carries an FDA warning for aortic dissection/aneurysm, which the patient may or may not be at increased risk for. At the moment, the patient and I have not arrived at a final decision and I will reach out to Dr. Perry to involve her in the decision- making. - Continue outpatient follow-up with Hepatology who is taking the lead on hepatitis C treatment - notified ID of 1 of 2 blood cultures from 05/19 positive for gram + cocci in clusters with molecular analysis positive for MRSE - no role for additional coverage at this time - RUBINA ordered to r/o valvular vegetations Assessment & Plan (05/20/2022 12:42 PM SHOP COOPER): 05/18 Blood cultures positive PSEUDOMONAS AERUGINOSA 2 of 2 bottles sensitive to cefepime ID consult placed 05/19 - waiting on input but for now continue cefepime and vancomycin Monitor vanc trough Daily blood cultures until negative 48 hours. Depression 05/20/2022 Assessment & Plan (05/22/2022 8:56 AM SHOP COOPER): -Patient's mood is very low given long hospitalization and now bacteremia. (History of tearful & feeling depressed) -Ongoing celexa (w baseline QTc) -patient is Advent and is agreeable to having Spiritual care support Assessment & Plan (05/21/2022 12:29 PM SHOP COOPER): Patient's mood is very low given long hospitalization and now bacteremia. He is tearful this morning. He reports feeling depressed. - started celexa - check baseline QTc - patient is Advent and is agreeable to having Spiritual care come and see him Assessment & Plan (05/20/2022 12:44 PM SHOP COOPER): Patient's mood is very low given long hospitalization and now bacteremia. He is tearful this morning. He reports feeling depressed. - will start celexa - check baseline QTc - patient is Advent and is agreeable to having Spiritual care come and see him Pulmonary embolism 05/18/2022 Assessment & Plan (06/03/2022 10:43 AM SHOP COOPER): -CT scan-C/A/P- (05/18) with new finding of PE - subsegmental left pulmonary embolism. There is no evidence of right heart strain. -LE venous duplex (05/19) positive right calf DVT -Goal INR 2.0-3.0 -Last night, INR = 2.2 Assessment & Plan (05/21/2022 12:36 PM SHOP COOPER): CT scan 05/18 with new finding of PE - subsegmental left pulmonary embolism. There is no evidence of right heart strain. / duplex LE, positive right calf DVT Started on low PTT heparin gtt nomogram and coumadin Continue coumadin Assessment & Plan (05/20/2022 12:26 PM SHOP COOPER): CT scan 05/18 with new finding of PE - subsegmental left pulmonary embolism. There is no evidence of right heart strain. / duplex LE, positive right calf DVT Started on low PTT heparin gtt and coumadin Continue coumadin Atrial fibrillation (CMS/HCC) 04/18/2022 Assessment & Plan (06/03/2022 10:42 AM SHOP COOPER): -Most likely AF with the recent surgery 03/31/22 -Continues on Coumadin & amiodarone therapy (200 mg daily) -Continues in NSR per telemetry Assessment & Plan (05/21/2022 12:12 PM SHOP COOPER): Most likely AF with the recent surgery 03/31/22 Assessment & Plan (05/12/2022 8:04 AM SHOP COOPER): Most likely AF with the recent surgery 03/31/22 Assessment & Plan (04/28/2022 4:01 PM SHOP COOPER): -developed during his post-op stay -Received DCCV/RUBINA on 04/10 -Continue daily amiodarone, at present, plus BB therapy -No longer on anti-coagulation due to recent retroperitoneal bleed - not planning to restart -currently SR -TTE no evidence of thrombi Assessment & Plan (04/24/2022 3:54 PM SHOP COOPER): -developed during his post-op stay -Received DCCV/RUBINA on 04/10 -Continue daily amiodarone, at present, plus BB therapy -No longer on anti-coagulation due to recent retroperitoneal bleed - not planning on restarting -currently SR -ordered TTE to r/o LA thrombus Anemia 04/18/2022 Assessment & Plan (05/26/2022 8:29 AM SHOP COOPER): Expected, due to recent surgery (Post-op ABLA) Labs now switched to twice weekly, during hospital stay Consider transfusing for Hgb < 7 & symptomatic Expect slow uptrend Assessment & Plan (04/28/2022 4:01 PM SHOP COOPER): Expected, due to recent redo sternotomy (cardiac surgery) 04/20 patient with retroperitoneal hematoma s/p fall - imaging without areas of active bleeding Has required multiple units of PRBC with last unit given morning of 04/23 with appropriate response to unit Consider transfusion for Hgb < 7 and symptomatic Daily CBC, while inpatient Expect slow uptrend Continue PPI Assessment & Plan (04/24/2022 3:43 PM SHOP COOPER): Expected, due to recent redo sternotomy (cardiac surgery) 04/20 patient with retroperitoneal hematoma s/p fall - imaging without areas of active bleeding Has required multiple units of PRBC with last unit given morning of 04/23 with appropriate response to unit Consider transfusion for Hgb < 7 and symptomatic Daily CBC, while inpatient Expect slow uptrend Continue PPI High risk medication use 04/18/2022 Assessment & Plan (06/03/2022 10:42 AM SHOP COOPER): -Ongoing coumadin therapy -Pt has Rt LE DVT (per duplex) and PE (per recent CT scan) -Goal INR ~ 2.0-3.0 -Last night, INR = 2.2 on stable dose of coumadin 8 mg -Heparin drip has been discontinued per Dr. Perry Assessment & Plan (04/25/2022 9:20 AM SHOP COOPER): Due to retroperitoneal bleeding coumadin therapy was stopped, not planning to restart resolved Assessment & Plan (04/24/2022 3:47 PM SHOP COOPER): Due to retroperitoneal bleeding coumadin therapy was stopped, not planning to restart resolved Acute on chronic renal failure 03/29/2022 Assessment & Plan (06/03/2022 10:42 AM SHOP COOPER): -Avoiding nephrotoxins, not on lasix -Creat peaked at 1.68 during past admission - creatinine up to 1.9 last night again, hold diuretics, repeat BMP in am Looks like new norm is going to be around ~1.6-1.8 -Stopped lasix related creatinine increase and ~ 9 kg below pre-admission weight Assessment & Plan (05/21/2022 12:29 PM SHOP COOPER): POA Creat peaked at 1.68 during past admission Cr 1.62 Decrease lasix to daily Cbc, BMP daily Will continue to monitor Avoid nephrotoxins Assessment & Plan (05/20/2022 12:06 PM SHOP COOPER): POA Creat peaked at 1.68 during past admission, most recent 1.31 Cr 1.53 Continue lasix bid Cbc, BMP daily Will continue to monitor Avoid nephrotoxins 05/18 NA 128 last night, FW restrict 1L, he had trank almost 2L of soda the day before and NA was 127 Na 135 on AML Assessment & Plan (04/28/2022 4:00 PM SHOP COOPER): Patient carries a history of CKD. No recent labs here On admission - Cr 03/2020 was 1.37 Appears to have developed FOZIA on CKD Cr peaked on 04/20 at 3.09 - continues to down trend with Cr 1.45 on AML Avoiding nephro-toxics Daily BMP, while inpatient Continue I &O, daily weights Lasix daily Assessment & Plan (04/24/2022 3:40 PM SHOP COOPER): Patient carries a history of CKD. No recent labs here On admission - Cr 03/2020 was 1.37 Appears to have developed FOZIA on CKD Cr peaked on 04/20 at 3.09 - continues to down trend with Cr 1.49 on AML Avoiding nephro-toxics Daily BMP, while inpatient Continue I &O, daily weights Assessment & Plan (03/29/2022 3:40 PM SHOP COOPER): Patient carries a history of CKD. No recent labs here - Cr 03/2020 was 1.37 -hold Lisinopril-HCT in lizette-operative setting -hydration with IVFs of NS at 75mL/hr in anticipation of contrast load for testing Coronary artery disease 03/19/2022 Overview (03/24/2022): Added automatically from request for surgery [id number] Assessment & Plan (04/25/2022 9:20 AM SHOP COOPER): See thoracic aortic aneurym problem, above No benjamin, related to elevated BUN/creatinine Assessment & Plan (04/18/2022 2:36 PM SHOP COOPER): See thoracic aortic aneurym problem, above No benjamin, related to elevated BUN/creatinine Primary osteoarthritis of right hip 03/12/2020 Overview (03/12/2020): Added automatically from request for surgery [id number] Hypertension 02/20/2020 Assessment & Plan (12/07/2022 8:42 AM CDT): - Referral placed to Cardiology, he states that 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 BP initially was elevated on arrival. He has stopped taking some of his antihypertensive medications. He would like to establish care. Assessment & Plan (06/03/2022 10:41 AM SHOP COOPER): Ongoing daily amlodipine and BID coreg SBP stable at 105-116/ Assessment & Plan (04/25/2022 9:20 AM SHOP COOPER): -Home meds: coreg and lisinopril-HCT -continue coreg Assessment & Plan (04/24/2022 3:47 PM SHOP COOPER): -Home meds: coreg and lisinopril-HCT -continue coreg Assessment & Plan (03/29/2022 3:37 PM SHOP COOPER): Home meds: coreg and lisinopril-HCT -continue home coreg -hold lisinopril-HCT in pre-op setting Disorder of lipid metabolism 02/20/2020 Primary osteoarthritis of left hip 12/21/2019 Overview (12/21/2019): Added automatically from request for surgery [id number] Chronic hepatitis C virus infection (CMS/HCC) Assessment & Plan (06/12/2022 1:00 PM SHOP COOPER): - Patient reports that he has not [...] he would need to follow back up. Assessment & Plan (05/22/2022 8:54 AM SHOP COOPER): ID note (05/20) with following included: Continue outpatient follow-up with Hepatology who is taking the lead on hepatitis C treatment. Assessment & Plan (04/25/2022 9:20 AM SHOP COOPER): Patient is set to start treatment for Hep C in the next 2 weeks -follows here for Hep C Assessment & Plan (03/30/2022 8:38 AM SHOP COOPER): Patient is set to start treatment for Hep C in the next 2 weeks -follows here for Hep C Assessment & Plan (03/29/2022 3:37 PM SHOP COOPER): Patient is set to start treatment for Hep C in the next 2 weeks -follows here for Hep C Assessment & Plan (03/12/2022 4:18 PM CDT): Patient with hepatitis C, diagnosed 5-10 years ago and is treatment naive. He would like to proceed with treatment. I will get updated labs including genotype as this was last done in 2015. I will also have him undergo a FibroScan to evaluate if he has any hepatic fibrosis from the chronic hep C. Patient is aware to notify our office if he starts any new medications as they can interact with hep C treatment. I discussed the natural history of chronic hepatitis C, including the potential for progression to cirrhosis, liver failure, development of liver cancer, need for a liver transplant, and . I discussed currently available antiviral agents, including their efficacy and adverse effects. I discussed the technique of liver biopsy and the use of liver histology to assist in the decision to use antiviral agents. I discussed risk factors for transmission, based on blood to blood contact. I recommended not sharing a toothbrush or razor blade. The risk of sexual transmission is less than 1% in a monogamous relationship. However, if there is concern, a condom should prevent transmission of the hepatitis C virus. I discussed the effect of heavy alcohol use on hepatitis C and how the disease can be accelerated. We discussed currently available antiviral therapy, including its efficacy, side effects, and cost. If there are concerns of potential treatment side effects, the patient is asked to contact my office. Pre-treatment, end of treatment and three-month follow up labs will be obtained. Currently, I see no obvious contraindications to antiviral therapy. He will return to clinic in 6-12 months. S/P thoracic aortic aneurysm repair 05/30/2015 Assessment & Plan (06/03/2022 10:44 AM SHOP COOPER): -Post-op from 03/31/2022 for: redo sternotomy, replacement of the aortic root (27mm Saavedra Inspiris bioprosthetic valve in 30mm Gelweave graft, 10mm graft to left main coronary artery, direct reimplantation of the right coronary artery), replacement of ascending aorta and hemiarch (30mm Gelweave graft), placement of 8mm Gelweave graft to innominate artery per Dr. Karo Perry. Discharged to acute rehab on 04/29/22. Signed out AMA 05/02 and returned to ER after fall on 05/03. -Ongoing PT/OT (current recommendations for Rehab at discharge, insurance now requesting Peer to Peer Thursday 06/01 -Ongoing coumadin therapy -See bacteremia problem, below Follow up TTE should be obtained june Assessment & Plan (05/21/2022 12:38 PM SHOP COOPER): 03/31/2022 for redo sternotomy, replacement of the aortic root (27mm Saavedra Inspiris bioprosthetic valve in 30mm Gelweave graft, 10mm graft to left main coronary artery, direct reimplantation of the right coronary artery), replacement of ascending aorta and hemiarch (30mm Gelweave graft), placement of 8mm Gelweave graft to innominate artery per Dr. Karo Perry. Discharged to acute rehab on 04/29/22. Signed out AMA 05/02 and returned to ER after fall on 05/03. Accepted in transfer from OSH PT/OT Slight temp /4 with small effusion on CXR- discussed importance of continuing aggressive IS use Continue lasix per Dr Perry, may decrease if cr continue to uptrend - 05/21: decrease to daily Long list of SNF/rehab denials in CM notes - need for custodial IV antibiotic now indicated, will look for LTACH Assessment & Plan (05/19/2022 8:47 AM SHOP COOPER): 03/31/2022 for redo sternotomy, replacement of the aortic root (27mm Saavedra Inspiris bioprosthetic valve in 30mm Gelweave graft, 10mm graft to left main coronary artery, direct reimplantation of the right coronary artery), replacement of ascending aorta and hemiarch (30mm Gelweave graft), placement of 8mm Gelweave graft to innominate artery per Dr. Karo Perry. Discharged to acute rehab on 04/29/22. Signed out AMA 05/02 and returned to ER after fall on 05/03. Accepted in transfer from OSH PT/OT Slight temp /4 with small effusion on CXR- discussed importance of continuing aggressive IS use Continue lasix per Dr Perry, may decrease if cr continue to uptrend Long list of SNF/rehab denials in CM notes Assessment & Plan (04/25/2022 9:21 AM SHOP COOPER): -s/p AVR (27 bio), Ascending, shy-arch repl, cohn graft to Left main per redo sternotomy -Transferred out of ICU 04/17 then transferred back to ICU on 04/20 following fall with retroperitoneal bleed - transfer back to step-down 04/23 -Ongoing post-op care (telemetry, VS, I &O, weights, medication changes) -Ongoing pulmonary toilet plus PT -Continue aspirin, statin, and coreg -Coumadin stopped due to RP bleed, not going to restart -will place on SQ[facility] -PT/OT -diuretics as tolerated -discharge planning Assessment & Plan (04/24/2022 3:57 PM SHOP COOPER): -s/p AVR (27 bio), Ascending, shy-arch repl, cohn graft to Left main per redo sternotomy -Transferred out of ICU 04/17 then transferred back to ICU on 04/20 following fall with retroperitoneal bleed - transfer back to step-down 04/23 -Ongoing post-op care (telemetry, VS, I &O, weights, medication changes) -Ongoing pulmonary toilet plus PT -Continue aspirin, statin, and coreg -Coumadin stopped due to RP bleed, not going to restart -will place on SQ[facility] -PT/OT -diuretics as tolerated -discharge planning Impotence 10/04/2014 Pain of right lower extremity 09/19/2014 Assessment & Plan (05/30/2022 10:05 AM SHOP COOPER): -Pt reported decreased sensation in RLE- unchanged discharge on 04/29/22 w/ weakness noted in right IP and right quadricep weakness 2-3/5 -continue PT/OT & Fall precautions -States previous pain is improved with continue scheduled Gabapentin and PRN Tramadol -Rt Knee buckled, now wears orthotic brace w/ ambulation -Neurology was consulted & following (now have signed off), MRI of pelvis and lumbar spine completed late 05/05, symptoms suggestive of lumobosacral plexopathy in the setting of RP bleed. Less likely considerations would be cervical myelopathy, LEFT subcortical injury, or mononeuropathy multiplex. -Plan for EMG/NCS after discharge, Neuro signed off 05/06 --Neurology to arrange outpatient EMG/NCS. Please provide the patient with the contact information for the [facility] EMG lab below: --Electromyography Studies (EMG) - [phone] - Neurology will arrange outpatient followup. Please provide the contact information for the Neurology outpatient clinic below. The patient will be seeing Dr. Guan. -Neurology - [facility] [address] [facility] [facility] [place] [address] [place] [address] Assessment & Plan (05/21/2022 12:36 PM SHOP COOPER): POA Pt began to complain of lack of feeling in RLE- unchanged from time of discharge on 04/29/22 Palpable pulses bilaterally/ Foot/leg warm to touch/ Weakness noted in right IP and right quadricep weakness 2-3/5 continue PT/OT Fall precautions Neurology was consulted MRI of pelvis and lumbar spine completed late 05/05 Neurology - symptoms suggestive of lumobosacral plexopathy in the setting of RP bleed. Less likely considerations would be cervical myelopathy, LEFT subcortical injury, or mononeuropathy multiplex. Plan for EMG/NCS as outpatient in approx 3 weeks- neurology to set up CT CAP done 05/03 showed reduced size of right illiac hematoma States the pain is improved - on Gabapentin and Tramadol, will keep the same dose today Knee buckled with PT, got orthotic brace for patient which seems to help stability and dc'd sternal precautions discharge planning Assessment & Plan (05/20/2022 12:24 PM SHOP COOPER): POA Pt began to complain of lack of feeling in RLE- unchanged from time of discharge on 04/29/22 Palpable pulses bilaterally/ Foot/leg warm to touch/ Weakness noted in right IP and right quadricep weakness 2-3/5 continue PT/OT Fall precautions Neurology was consulted MRI of pelvis and lumbar spine completed late 05/05 Neurology - symptoms suggestive of lumobosacral plexopathy in the setting of RP bleed. Less likely considerations would be cervical myelopathy, LEFT subcortical injury, or mononeuropathy multiplex. Plan for EMG/NCS as outpatient in approx 3 weeks- neurology to set up CT CAP done 05/03 showed reduced size of right illiac hematoma States the pain is improved - on Gabapentin and Tramadol, will keep the same dose today Knee buckled with PT, got orthotic brace for patient which seems to help stability and dc'd sternal precautions discharge planning Cellulitis and abscess 05/14/2014 Resolved Problems Problem Noted Date Diagnosed Date Resolved Date Hyponatremia 05/21/2022 06/02/2022 Assessment & Plan (05/31/2022 10:16 AM SHOP COOPER): - Most recent NA 134 -Continue FWFR, per oral fluid restrictions -Twice weekly BMP, at present Assessment & Plan (05/21/2022 12:30 PM SHOP COOPER): 05/18 NA 128 last night, FW restrict 1L, he had drank almost 2L of soda the day before and NA was 127 Na 134 on AML Continue FWR Monitor daily BMP Fever 05/18/2022 05/25/2022 Assessment & Plan (05/23/2022 9:39 AM SHOP COOPER): -Patient shivering on morning rounds 05/18 with temp up to 101.3 -Initial checks: Ua (-) -see bacteremia problem -Continues afebrile at present -Consider resolving this problem -dc daily blood cultures per ID, -findings on RUBINA discussed with Dr Perry, suture vs vegetation, she feels that its a suture, ID notified Assessment & Plan (05/20/2022 12:24 PM SHOP COOPER): Patient shivering on morning rounds 05/18 with temp up to 101.3 Ua (-) Broad spectrum abx per Dr Perry - cefepime and vancomycin New PE on CT LE duplex positive for acute DVT Respiratory panel sent (-) 05/18 Blood cultures positive PSEUDOMONAS AERUGINOSA 2 of 2 bottles sensitive to cefepime ID consult placed 05/19 - waiting on input but for now continue cefepime and vancomycin Monitor vanc trough Retroperitoneal bleed 04/24/20222022 Assessment & Plan (05/26/2022 8:49 AM SHOP COOPER): -POA- occurred during last admission -CTA at OSH showed the R iliacus and body wall hematoma is slightly decreased in size since 04/20/22. CT 05/18: right iliacus hematoma extending along the right paracolic gutter/lateral rectus muscle. This was present on MR pelvis dated 05/05/2022. The hematoma has slightly decreased in size measuring 5.0 x 7.9 cm, previously 5.2 x 8.1 cm. -Monitor H/H while restarting anticoagulation - currently stable -CBC daily -Most recent labs continue stable -No active bleeding, will consider resolving this problem Assessment & Plan (05/21/2022 12:37 PM SHOP COOPER): POA- occurred during last admission CTA at OSH showed the R iliacus and body wall hematoma is slightly decreased in size since 04/20/22. CT 05/18: right iliacus hematoma extending along the right paracolic gutter/lateral rectus muscle. This was present on MR pelvis dated 05/05/2022. The hematoma has slightly decreased in size measuring 5.0 x 7.9 cm, previously 5.2 x 8.1 cm. Monitor H/H while restarting anticoagulation - currently stable CBC daily Most recent labs have been stable Assessment & Plan (05/20/2022 12:33 PM SHOP COOPER): POA- occurred during last admission CTA at OSH showed the R iliacus and body wall hematoma is slightly decreased in size since 04/20/22. CT 05/18: right iliacus hematoma extending along the right paracolic gutter/lateral rectus muscle. This was present on MR pelvis dated 05/05/2022. The hematoma has slightly decreased in size measuring 5.0 x 7.9 cm, previously 5.2 x 8.1 cm. Monitor H/H while restarting anticoagulation - currently stable CBC daily Most recent labs have been stable Assessment & Plan (04/26/2022 10:20 AM SHOP COOPER): S/p fall on 04/20 with retroperitoneal bleed - imaging with no areas of active bleeding Stopped heparin drip and coumadin, not planning to restart anti-coagulation Has required multiple units of PRBC with last unit given morning of 04/23 with appropriate response to unit PT reached out with concerns regarding ongoing worsening weakness of R hip flexors and quadriceps muscle, discussed w/ patient that the numbness and weakness may remain until the RP bleed is completely resolved and to continue strengthening exercises and ambulation only with assistance and as directed Assessment & Plan (04/24/2022 3:54 PM SHOP COOPER): S/p fall on 04/20 with retroperitoneal bleed - imaging with no areas of active bleeding Stopped heparin drip and coumadin, not planning to restart anti-coagulation Has required multiple units of PRBC with last unit given morning of 04/23 with appropriate response to unit Leukocytosis 04/20/2022 04/25/2022 Assessment & Plan (04/25/2022 9:21 AM SHOP COOPER): Empiric ceftriaxone ended WBC wnl Afebrile Cultures were negative CBC daily Assessment & Plan (04/24/2022 3:49 PM SHOP COOPER): Empiric ceftriaxone ends today WBC wnl Afebrile Cultures were negative CBC daily Pain 04/18/2022 04/25/2022 Assessment & Plan (04/24/2022 3:49 PM SHOP COOPER): Expected, due to recent surgery per redo sternotomy Ongoing PRN tylenol which he has not taken past 24 hours Ascending aortic aneurysm, u nspecified whether ruptured 03/29/2022 03/29/2022 Aortic aneurysm without rupture 03/29/2022 03/29/2022 Infectious viral hepatitis 03/29/2022 1 05/29/2021 Aneurysm of ascending aorta without rupture 03/19/2022 04/18/2022 Overview (03/24/2022): Added automatically from request for surgery [id number] Assessment & Plan (03/30/2022 8:38 AM SHOP COOPER): History of emergent type A aortic dissection repair per Dr. Celaya in 2014. Imaging in February showing ascending aorta of 6.1cm, he presents today in anticipation of ascending aortic and shy arch replacement with possible root replacement per Dr. Perry on 03/31. -pre-op labs and ECG -ordered TAVR CT (low dose protocol) -down for TTE today -Cancelled LHC per Dr. Perry -needs IV hydration due to CKD - start IVFs of NS at 75ml/hr -continue home coreg, hold lisinopril-HCTZ in lizette-op setting Assessment & Plan (03/29/2022 3:33 PM SHOP COOPER): History of emergent type A aortic dissection repair per Dr. Celaya in 2014. Imaging in February showing ascending aorta of 6.1cm, he presents today in anticipation of ascending aortic and shy arch replacement with possible root replacement per Dr. Perry on 03/31. -pre-op labs and ECG -ordered TAVR CT (low dose protocol) -ordered echo -ordered LHC -needs IV hydration due to CKD - start IVFs of NS at 75ml/hr -continue home coreg, hold lisinopril-HCTZ in lizette-op setting Irregular heartbeat 02/20/2020 04/18/20 22 Overweight 02/20/2020 04/18/2022 Edema 09/19/2014 05/26/2022 Immunizations Name Administration Dates Next Due Hep B Vaccine 06/20/2015 Influenza, Quadrivalent, Spl it, Preservative Free, Intramuscular 04/09/2020 Influenza, Unspecified 05/10/2015 Pfizer SARS-CoV-2 Monovalent Vaccination (12+ Yrs) PURPLE 10/30/2020 Tdap 05/14/2014 Social History Tobacco Use Types Packs/Day Years Used Date Smoking Tobacco: Never Smokeless Tobacco: Never Tobacco Cessation:Counseling Given: Not Answered Alcohol Use Standard Drinks/Week Comments Never 0 (1 standard drink = 0.6 oz pur e alcohol) OASIS D0700: Social Isolation Answer Da te Recorded Frequency of experiencing loneliness or isolatio n Never 06/05/2022 OASIS A1250: Transportation Answer Date Recorded Lack of Transportation (Medical) No 06/05/2022 Lack of Transportation (Non-Medical) No 06/05/2022 Patient Unable or Declines to Respond No 06/05/2022 OASIS B1300: Health Literacy Answer James e Recorded Frequency of needing help to read materials from doctor or pharmacy Never 06/05/2022 Social Connection and Isolat ion Panel [NHANES] Answer Date Recorded In a typical week, how many times do you talk on the phone with family, friends, or neighbors? More than three times a week 05/06/2022 How often do you get togethe r with friends or relatives? More than three times a week 05/06/2022 How often do you attend [facility] or rastafari services? Never 05/06/2022 Do you belong to any clubs o r organizations such as temple groups, unions, fraternal or athletic groups, or school groups? No 05/06/2022 How often do you attend meet ings of the clubs or organizations you belong to? Never 05/06/2022 Are you , , di vorced, , never , or living with a partner? Living with partner 05/06/2022 AUDIT-C Answer Date Recorded Q1: How often do you have a drink containing alc ohol? Never 08/25/2022 Average Number of Drinks Not on file 023 Frequency of Binge Drinking Not on file 08/08 Overall Financial Resource Strain (CARDIA) Answe r Date Recorded How hard is it for you to pa y for the very basics like food, housing, medical care, and heating? Somewhat hard 05/06/2022 PHQ-2 Answer Date Recorded PHQ-2 Total Score (If total score is 3 or more points, staff should administer the PHQ-9) 0 05/06/2022 Hunger Vital Sign Answer Date Recorded Within the past 12 months, y ou worried that your food would run out before you got the money to buy more. Never true 06/15/19 23 Within the past 12 months, t he food you bought just didn't last and you didn't have money to get more. Never true 06/15/2022 PRAPARE - Transportation Answer Date Re corded In the past 12 months, has l ack of transportation kept you from medical appointments or from getting medications? No 04/10 In the past 12 months, has l ack of transportation kept you from meetings, work, or from getting things needed for daily living? No 05/06/2022 Housing Stability Vital Sign Answer James e Recorded In the last 12 months, was t here a time when you were not able to pay the mortgage or rent on time? No 05/06/2022 In the last 12 months, how many places have you lived? 1 05/06/2022 In the last 12 months, was t here a time when you did not have a steady place to sleep or slept in a chcf (including now)? No 05/06/2022 Personal Safety Answer Date Recorded Getting School Help Needed Not on file 10/19 /2024 Sex and Gender Information Value Date Recorded Sex Assigned at Not on file Legal Sex Male 3:56 AM SHOP COOPER Gender Identity Male 03/27/2020 2:49 PM SHOP COOPER Sexual Orientation Straight 03/27/2020 2: 49 PM SHOP COOPER Occupation Industry Job Start Date Job End Date Unemployed Not on file Not on file Not on file Last Filed Vital Signs Vital Sign Reading Time Taken Comments Blood Pressure 146/72 02/10/2023 2:05 PM CDT Pulse 73 02/10/2023 2:05 PM CDT Temperature 36.5 C (97.7 F) 02/10/2023 10:50 AM CDT Respiratory Rate 17 02/10/2023 2:05 PM CDT Oxygen Saturation 90% 02/10/2023 2:05 PM CDT Inhaled Oxygen Concentration - - Weight 111.2 kg (245 lb 2.4 oz) 023 10:50 AM CDT Height 188 cm (6' 2 ) 02/10/2023 10:50 AM CDT Body Mass Index 31.48 02/10/2023 10:50 AM CDT Plan of Treatment Not on file Medical Devices Implanted Type Area Assistant Head Cashier Device Identifier Shelf Expiration Date Model / Serial / Lot Terumo Card[employer] Gelweave 8mm 30cm Suture Retention Unique Hydrolyzable Abdomen [id number] - [id number] - [id number] Implanted:Qty: 1 on 03/31/2022 by Bhavin Bennett MD at [facility] Graft N/A: Heart [employer] [id number] 10/07/2024 [id number] / [id number] / [id number] Ter[employer] Gelweave 30mm 30cm Suture Retention Unique Hydrolyzable Abdomen [id number] - [id number] - [id number] Implanted:Qty: 1 on 03/31/2022 by Karo Perry MD at [facility] Graft N/A: Heart [employer] [id number] 12/07/2024 [id number] / [id number] / [id number] Ter[employer] Gelweave 10mm 30cm Suture Retention Unique Hydrolyzable Abdomen [id number] - [id number] - [id number] Implanted:Qty: 1 on 03/31/2022 by Karo Perry MD at [facility] Graft N/A: Aorta [employer] [id number] 03/09/2024 [id number] / [id number] / [id number] [employer] [id number] 56mm Limit 4 Hole Hip F Hemisphere Offset Shell Acetabular - [id number] - [id number] Implanted:Qty: 1 on 01/29/2020 by Geni March MD at [facility] Left: Hip [employer] 11/28/2029 [id number] / [id number] / [employer] [id number] Trilogy 6.5mm 40mm Self Tap Hip Acetabular Cortical Screw Bone - [id number] Implanted:Qty: 1 on 01/29/2020 by Geni March MD at [facility] Left: Hip [employer] [id number] 10/07/2028 [id number] / / [id number] [employer] [id number] 36mm Lumen Hip F Liner Acetabular Longevity Sterile Latex Free - [id number] - [id number] Implanted:Qty: 1 on 01/29/2020 by Geni March MD at [facility] Left: Hip [employer] 11/26/[id number] / / [employer] [id number] Trilogy 6.5mm 20mm Self Tap Screw Bone - [id number] Implanted:Qty: 1 on 01/29/2020 by Geni March MD at [facility] Left: Hip [employer] [id number] 09/06/2024 [id number] / / [id number] [employer] [id number] 16.25mm 129mm Primary Hip 47mm Taper Straight Extended Offset - S0 - [id number] Implanted:Qty: 1 on 01/29/2020 by Geni March MD at [facility] Left: Hip [employer] [id number] 06/09/2028 [id number] / 0 / [id number] [employer] [id number] 36mm Hip Acetabular +7mm 12/14 Xl Head Femoral Biolox Delta - S0 - [id number] Implanted:Qty: 1 on 01/29/2020 by Geni March MD at [facility] Left: Hip [employer] 06/09/2028 [id number] / 0 / [id number] [employer] [id number] Trilogy 6.5mm 30mm Self Tap Acetabular Cortical Screw Bone - [id number] Implanted:Qty: 1 on 04/08/2020 by Geni March MD at [facility] Right: Hip [employer] [id number] 11/22/2029 [id number] / / [id number] [employer] [id number] M/L 15mm 129mm 42mm Primary Hip 51mm Extend Offset Straight Taper - [id number] Implanted:Qty: 1 on 04/08/2020 by Geni March MD at [facility] Right: Hip [employer] [id number] 07/08/2027 [id number] / / [id number] [employer] [id number] 36mm Hip Acetabular +7mm 12/14 Xl Head Femoral Biolox Delta - [id number] Implanted:Qty: 1 on 04/08/2020 by Geni March MD at [facility] Right: Hip [employer] [id number] 10/07/2028 [id number] / / [id number] [employer] [id number] G7 56mm Limit 4 Hole Hip F Hemisphere Offset Shell Acetabular - [id number] Implanted:Qty: 1 on 04/08/2020 by Geni March MD at [facility] Right: Hip [employer] 11/15/2029 [id number] / / [id number] [employer] [id number] 36mm Lumen Hip F Liner Acetabular Longevity Sterile Latex Free - [id number] Implanted:Qty: 1 on 04/08/2020 by Geni March MD at [facility] Right: Hip [employer] 06/09/2024 [id number] / / [id number] [employer] [id number] Trilogy 6.5mm 40mm Self Tap Hip Acetabular Cortical Screw Bone - [id number] Implanted:Qty: 1 on 04/08/2020 by Geni March MD at [facility] Right: Hip [employer] [id number] 12/20/2029 [id number] / / [id number] [employer] Per[employer] V[employer] 6x6in Patch Thk1.65mm [employer] Ptfe Sterile Latex Free 200587 - [id number] Implanted:Qty: 1 on 03/31/2022 by Bhavin Bennett MD at [facility] [employer] Peripheral [employer]ascular 10/04/2026 [id number] / / [employer] Inspiris Resilia Leaflet Sewing Ring 27mm Valve Aortic Bovine [id number] - [id number] - [id number] Implanted:Qty: 1 on 03/31/2022 by Karo Perry MD at [facility] N/A: Aortic Valve [employer] [id number] 11/05/2025 [id number] / [id number] / Aortic Heart Valve-03/31/2022 Implanted:2021 (Quantity not on file) Aorta [employer] RESILIA - SIZE 27MM [id number] / [id number] / Description:Inspiris Resilia Heart Valve Prosthesis, [employer], [email or web address] Procedures Procedure Name Priority Date/Time Associated Diagnosis Comments HEPATITIS C RNA, QUANTITATIVE, PCR Routine 12/15/2022 9:25 AM CDT Chronic hepatitis C without hepatic coma (CMS/HCC) (HCC) from Last 3 Months or Most Recently Relevant to Health Maintenance Results * Hepatitis C (HCV) RNA PCR, quantitative (12/15/2022 9:25 AM CDT) HCV RNA IU/mL HCV Not Detected IU/mL [facility] - 01 HCV RNA log IU/mL CANCELED log10 IU/mL [facility] - 01 Comment: Unable to calculate result since non-numeric result obtained for component test. Result canceled by the ancillary. Test information Comment [facility] - 01 Comment:The quantitative ran ge of this assay is 15 IU/mL to 100 million IU/mL. HCV genotype CANCELED [facility] - 01 Comment: Not indicated Result canceled by the ancillary. Blood 12/15/2022 9:25 AM CDT 12/15/2022 Narrative [facility] - 12/18/2022 12:10 PM CDT Performed at: - [facility] [address] [id number] Lpta: Luzmaria Moody MD, Phone: [phone] Karla Monroe NP LAB MICROBIOLOGY - GENER AL ORDERABLES Edited Result - Final [facility] - 01 from Last 3 Months or Most Recently Relevant to Health Maintenance Insurance [facility] Advance Directives For more information, please contact: [phone] * Full Code (Latest Code Status on File) Date Activated Date Inactivated Comments 05/04/2022 9:52 AM 06/04/2022 4:12 PM * Full Code Date Activated Date Inactivated Comments 03/31/2022 6:01 PM 04/29/2022 9:03 PM * Full Code Date Activated Date Inactivated Comments 03/29/2022 3:00 PM 03/31/2022 6:01 PM * Full Code Date Activated Date Inactivated Comments 04/08/2020 7:28 PM 04/09/2020 7:17 PM * Full Code Date Activated Date Inactivated Comments 01/29/2020 12:24 PM 01/30/2020 10:07 PM Care Teams Motion Picture Projectionist Apprentice Relationship Specialty Start Date End Date Rose Barker PA [address] [address] PCP - General Physician Plug Maker 03/02/22 Jaycob Lerner DO [address] [place] [address] Referring Physician Cardiology 03/02/22 Karo Perry MD [id number] [place] [address] Surgeon Cardiothoracic Surgery 04/27/22 Unknown, Notinfile 04/27/22 Miscellaneous, Not In File 06/04/22
--- OUTSIDE RECORDS SUMMARY | 2024-06-18 18:52 | XMS_ITS | Patient Health Summary ---
Author Organization [facility] Address [address] [place] [address] Care Team Providers Care Medical Record Librarian Name Role Phone Unavailable Primary Care Provider Unavailabl e Note from [facility],non-owned Affiliates and Associated Physician Practices is amultiple site organization consisting of ambulatory clinics and hospital sitesin [place], [place], [place] and [place]. This disclosure is being madepursuant to the Care Everywhere program and may not contain all information available regarding this patient. Last updated 18.[facility] Allergies No known active allergies Medications * Be aware that medications may not be up to date on this document. Alwaysverify current medications with the patient. * aspirin (ASPIRIN) 81 MG tablet Take 81 mg by mouth once daily * hydroCHLOROthiazide (HYDRODIURIL) 25 MG tablet(Started 12/24/2015) TAKE 1 TABLET BY MOUTH EVERY DAY 5 refills left * carvedilol (COREG) 25 MG tablet(Started 03/08/2017) TAKE 1 TABLET BY MOUTH TWICE DAILY(WITH MORNING AND EVENING MEAL) 11 refills remaining * hydroCHLOROthiazide (HYDRODIURIL) 25 MG tablet(Started 04/20/2017) TAKE 1 TABLET BY MOUTH DAILY 11 refills remaining * warfarin (Coumadin) 5 MG tablet(Started 10/08/2022) Take 2 (two) tablets by mouth Two times a week * amLODIPine (Norvasc) 5 MG tablet(Started 10/09/2022) Take 1 (one) tablet by mouth once daily * ciprofloxacin (Cipro) 500 MG tablet(Started 12/03/2022) * FeroSul 325 (65 Fe) MG tablet(Started 10/27/2022) Active Problems Problem Noted Date Diagnosed Date Cervical myelopathy 08/28/2022 12/10/2022 Bacteremia due to Pseudomonas 05/20/2022 Depression 05/20/2022 12/10/2022 Pulmonary embolism 05/18/2022 12/10/2022 Atrial fibrillation 04/18/2022 12/10/2022 Anemia 04/18/2022 12/10/2022 Chronic hepatitis C virus infection 06/20/2015 12/10/2022 Essential hypertension 05/30/2015 S/P thoracic aortic aneurysm repair 05/30/2015 Impotence 10/04/2014 Leg pain 09/19/2014 Edema 09/19/2014 Cellulitis and abscess 05/14/2014 Immunizations * TDAP (7yrs+)(Given 05/14/2014) Social History Tobacco Use Types Packs/Day Years [...] 37 C (98.6 F) 05/19/2014 8:26 AM [employer] Respiratory Rate 20 01/08/2016 9:31 AM CDT Oxygen Saturation 98% 03/08/2017 9:57 AM CDT Inhaled Oxygen Concentration - - Weight 115.4 kg (254 lb 6.4 oz) 03/08/2017 9:57 AM CDT Height 188 cm (6' 2 ) 03/08/2017 9:57 AM CDT Body Mass Index 32.66 03/08/2017 9:57 AM CDT Procedures * MT CHMSRG MOHS MG TQ T/A/L 1ST STAG 5 BLOCKS(Performed 01/07/2023) Performed for Basal cell carcinoma of right forearm * MT INTMD WND REPAIR TRUNK,ARM,LEG 2.6-7.5(Performed 01/07/2023) Performed for Basal cell carcinoma of right forearm * MT DESTRUCT BENIGN LESION, 1-14(Performed 12/10/2022) Performed for Seborrheic keratosis, inflamed * MT TANGNTL BX SKIN SINGLE LES(Performed 12/10/2022) Performed for Neoplasm of uncertain behavior of skin * DERMATOPATHOLOGY(Performed 12/10/2022) Performed for Neoplasm of uncertain behavior of skin * EKG 12-LEAD(Performed 03/08/2017) Performed for Essential hypertension, Erectile dysfunction, unspecified erectile dysfunction type * EKG 12-LEAD(Performed 07/01/2015) * CREATININE BLOOD - POINT OF CARE (IP)(Performed 06/12/2015) * CT ANGIO CHEST ABDOMEN PELVIS(Performed 06/12/2015) Performed for S/P aortic dissection repair * EKG 12-LEAD(Performed 05/30/2015) * CARDIAC ECHOCARDIOGRAM COMPLETE ORDER(Performed 05/02/2015) * CARDIAC PROCEDURE ORDER(Performed 05/02/2015) * VAS BILATERAL VENOUS DUPLEX LE(Performed 10/19/2014) Performed for Pain of lower leg, unspecified laterality * CK BLOOD(Performed 10/02/2014) Performed for Edema * LIPID PROFILE(Performed 10/02/2014) Performed for Leg pain, left, Edema * BASIC METABOLIC PANEL (CALCIUM TOTAL)(Performed 10/02/2014) Performed for Leg pain, left, Edema * XR KNEE BILAT 2VW OR LESS(Performed 09/19/2014) Performed for Knee pain, unspecified laterality * EKG 12-LEAD(Performed 09/19/2014) Performed for Leg pain, left, Cellulitis and abscess of unspecified site, Edema * CARDIAC RHYTHM STRIP ORDER(Performed 05/21/2014) * VANCOMYCIN LEVEL RANDOM(Performed 05/19/2014) * BASIC METABOLIC PANEL (CALCIUM TOTAL)(Performed 05/19/2014) * CBC W AUTO DIFFERENTIAL(Performed 05/19/2014) * CBC W AUTO DIFFERENTIAL(Performed 05/18/2014) * BASIC METABOLIC PANEL (CALCIUM TOTAL)(Performed 05/18/2014) * PATHOLOGY TISSUE EXAM (STL)(Performed 05/17/2014) * CULTURE TISSUE+GRAM STAIN(Performed 05/17/2014) * CULTURE ANAEROBE(Performed 05/17/2014) * INCISION AND DRAINAGE LEG/KNEE(Performed 05/17/2014) * VANCOMYCIN LEVEL RANDOM(Performed 05/16/2014) * CBC W AUTO DIFFERENTIAL(Performed 05/16/2014) * BASIC METABOLIC PANEL (CALCIUM TOTAL)(Performed 05/16/2014) * CULTURE MRSA(Performed 05/15/2014) * CULTURE ANAEROBE(Performed 05/15/2014) * CULTURE WOUND+GRAM STAIN(Performed 05/15/2014) * CULTURE BLOOD(Performed 05/14/2014) * CBC W AUTO DIFFERENTIAL(Performed 05/14/2014) * COMPREHENSIVE METABOLIC PANEL(Performed 05/14/2014) * CULTURE BLOOD(Performed 05/14/2014) Results * MT INTMD WND REPAIR TRUNK,ARM,LEG 2.6-7.5, MT CHMSRG MOHS MG TQ T/A/L 1ST STAG 5 BLOCKS (1:30 AM CDT) Narrative Kemal Shaw MD - 01/07/2023 11:30 AM CDT Kemal Shaw MD 01/07/2023 1:37 PM Mohs Micrographic Surgery Operative Note Procedure: Mohs micrographic surgery Date of service: 01/07/2023 Location: R proximal FA Preop diagnosis: Basal cell carcinoma, infiltrative subtype Postop diagnosis: Same Mohs AUC score: 8 Number of stages: 1 Preop size: 2.0x1.7cm Postop size: 2.6x2.2cm Depth of final defect: adipose Previous dermpath accession #: [id number] Repair type: intermediate Mohs accession #: [id number] Surgeon and Pathologist: Bradley Shaw MD served as both surgeon and pathologist. No other physician was involved in the cancer removal or pathology interpretation. Assistants: Conrad Anderson MD Indications for Mohs Surgery Removal of the patient's tumor is complicated by the following clinical features: aggressive pattern on initial pathology. Based on my medical judgement, Mohs surgery is the most appropriate treatment for this cancer compared to other treatments. I discussed alternative treatments to Mohs surgery and specifically discussed the risks and benefits of curettage, excision with permanent sections, and foregoing treatment. The rationale for Mohs was explained to the patient and consent was obtained. The risks, benefits and alternatives to therapy were discussed in detail. Specifically, the risks of infection, scarring, bleeding, prolonged wound healing, incomplete removal, allergy to anesthesia, nerve injury and recurrence were addressed. Prior to the procedure, the treatment site was clearly identified and confirmed by the patient. All components of [place] Protocol/PAUSE Rule completed. STAGE I: The patient was placed on the operating table. The cancer was identified and outlined. The entire surgical field was prepped with hibiclens. The surgical site was anesthetized using Lidocaine 1% with epinephrine 1:100,000 buffered with sodium bicarbonate 8.4% in a 1:10 ratio.The area of clinically apparent tumor was debulked with a 2 mm curette. The layer of tissue was then surgically excised using a #15 blade and was then transferred onto a specimen sheet maintaining the orientation of the specimen. Hemostasis was obtained using monopolar electrodesiccation. The wound site was then covered with a dressing while the tissue samples were processed for examination. The specimen was oriented, mapped and divided. Each section was then inked and processed in the Mohs lab using the Mohs protocol and submitted for frozen section. The histopathologic sections were reviewed by the surgeon in conjunction with the reference map. Total blocks: 1 Total slides: 3 Frozen sections were examined by the surgeon. No additional tumor was identified. No additional histologic findings appreciated. Cell morphology: N/A. No tumor seen. Pathological pattern: N/A. No tumor seen. Depth of invasion: N/A. No tumor seen. Scar tissue: Not Present Perineural invasion: Not Present Inflammation obscuring possible tumor presence: Not Present [facility] CLIA # [id number] Mohs dental laboratory technology teacher: Nona Simons MD REPAIR: Intermediate Primary Surgeon: Bradley Shaw MD Elevator Builder: Conard Anderson MD Repair Size: 6.0 cm Sutures: 4-0 monocryl The defect was identified and a marking pen was used to plan the repair. The area was infiltrated with Lidocaine 1% with epinephrine 1:100,000 buffered with sodium bicarbonate 8.4% in a 1:10 ratio, prepped with hibiclens and draped with sterile towels. The wound was debeveled and undermined widely. Cones were excised within relaxed skin tension lines on both sides of the defect. Hemostasis was obtained using monopolar electrodesiccation. The dermis and subcutaneous tissue were then approximated using buried vertical mattress sutures. Percutaneous running subcuticular sutures were carefully placed for maximum eversion and meticulous wound edge approximation. Careful attention was paid to avoid distorting any nearby free margins. The wound was cleansed with saline and ointment was applied along the wound surface. A sterile pressure dressing was applied. Wound care instructions were given verbally and in writing. The patient left the operating suite in stable condition. Patient was informed that additional refinement of the resulting surgical scar may be used as a second stage of this reconstruction. Conrad (Chris) MD Monica Mohs MSDO Fellow, PGY5 I was present for the goldman and critical portions of the procedure and readily available for the remainder of the procedure. Date of Service : 01/07/2023 Kemal Shaw MD Kemal Shaw MD PROCEDURE/MINOR SURG ICAL ORDERABLES * MT DESTRUCT BENIGN LESION, 1-14 (12/10/2022 3:06 PM CDT) Narrative Justin Murray MD - 12/10/2022 3:06 PM CDT Jelani Odom MD 12/10/2022 3:08 PM Diagnosis and treatment options discussed. Discussed high risk of recurrence. Liquid nitrogen was applied to 1 lesions (R lateral jawline) for 5-7 seconds for 2 cycles. Wound care reviewed. Jelani Odom MD [facility] Dermatology Resident, PGY-4 Justin Murray MD PROCEDURE/MINOR SURG ICAL ORDERABLES * MT TANGNTL BX SKIN SINGLE LES (12/10/2022 2:50 PM CDT) Narrative Justin Murray MD - 12/10/2022 2:50 PM CDT Jelani Odom MD 12/10/2022 2:51 PM Risks, benefits and alternatives to shave biopsy were discussed with the patient. Verbal consent was obtained. Location: R prox FA Skin prep: Alcohol Anesthesia: 0.25% bupivacaine with epinephrine Hemostasis: Pressure dressing Dressing and wound care discussed. Specimen(s) placed in a patient labeled container and sent to dermatopathology. Patient agrees to phone call for results and message if not available. Jelani Odom MD [facility] Dermatology Resident, PGY-4 Justin Murray MD PROCEDURE/MINOR SURG ICAL ORDERABLES * DERMATOPATHOLOGY (12/10/2022 3:33 AM CDT) Case Report Dermatopathology Report Case: [id number] Authorizing Provider: Justin Murray MD Collected: 12/10/2022 03:33 AM Ordering Location: [facility] Dermatology Received: 12/10/2022 04:45 PM Pathologist: Kalli Bain MD Specimen: Skin, right prox FA 4:07 PM CDT DERMATOPATHOLOGY LABORATORY Final Diagnosis Specimen A. SKIN, right prox FA: BASAL CELL CARCINOMA, INFILTRATIVE PATTERN (C44.612) 3 4:07 PM CDT DERMATOPATHOLOGY LABORATORY Clinical History BCC vs other 3 4:07 PM CDT DERMATOPATHOLOGY LABORATORY Gross Description Specimen A: Received is one formalin filled container labeled with the patient's name and designated right prox FA. The specimen consists of a shave biopsy measuring [id number] mm. Jar 0. 3 4:07 PM CDT DERMATOPATHOLOGY LABORATORY Microscopic Description Specimen A. SKIN, right prox FA: Within the dermis there are nodular aggregates of basaloid cells associated with fibromyxoid stroma and epithelial-stromal clefts. At the advancing margin of the neoplasm, there are smaller angulated nests that infiltrate the dermis. 3 4:07 PM CDT DERMATOPATHOLOGY LABORATORY Disclaimer An external and internal positive and negative controls are appropriate for the histochemical, immunohistochemical and immunofluorescence stain(s) in this case (if any), except where stated explicitly. The performance characteristics of the stain(s) cited in this report were developed and its performance characteristic determined by the Dermatopathology Laboratory at [facility], directed by Dr. Inge Harrison. These tests need not be, and therefore are not, approved by the [place] Food and Drug Administration. The tests are used for clinical purposes. Billing Codes Specimen Charges Stain Charges 96841 1 3 4:07 PM CDT DERMATOPATHOLOGY LABORATORY Embedded Images 3 4:07 PM CDT DERMATOPATHOLOGY LABORATORY Pathology/Cytolo gy TISSUE SPECIMEN FROM SKIN / Unknown 12/10/2022 3:33 AM CDT 12/10/2022 4:45 PM CDT Jsutin Murray MD LAB - PATHOLOGY/CYTO LOGY ORDERABLES DERMATOPATHOLOGY LABORATORY [facility] - Department of Dermatology [address], [address] [phone] * EKG 12-LEAD (03/08/2017) Only the most recent of4 resultswithin the time period is included. Impressions Kadie Cox - 03/08/2017 Sinus with PACs Nonspecific ST abnormality Justin Duque MD ECG ORDERABLES * CREATININE BLOOD - POINT OF CARE (IP) (06/12/2015 11:12 AM [employer]) Creatinine POCT 0.71 0.7 - 1.2 mg/dL [facility]CT TEST[facility] QC Verified Yes Yes [facility] POC T TESTING Blood specimen (specimen) BLOOD SPECIMEN / Unknown 06/12/2015 11:12 AM [employer] Justin Duque MD LAB - POINT OF CARE ORDERABLES Performing Organization Address City/State/[facility] Co de Phone Number [facility] POCT TESTING [address] [phone] * CT ANGIO CHEST ABD PELVIS (06/12/2015 11:10 AM [employer]) Anatomical Region Laterality Modality Computed Tomogra phy 06/12/2015 12:2 0 PM [employer] Narrative 06/12/2015 2:15 [address] [employer] [address] CT ANGIOGRAM CHEST, ABDOMEN AND PELVIS HISTORY: Aortic dissection repair followup. TECHNIQUE: Precontrast images of the thorax were followed by multiple contiguous axial images of the chest, abdomen and pelvis with intravenous administration of 100 cc Omnipaque 350. There is no prior examination for comparison. Precontrast imaging of the thorax fails to demonstrate evidence of an intramural hematoma within the ascending thoracic aorta. Following intravenous contrast administration, there is normal contrast opacification of the aorta and its branches. The ascending thoracic aorta is mildly ectatic. There is evidence of a circumferential graft within the mid ascending thoracic aorta. The visualized aortic root and coronary arteries appear grossly normal. The heart size is normal. There is a small amount of pericardial fluid. There is soft tissue stranding within the thorax and recent poststernotomy changes are present consistent with recent surgery. No mediastinal hematoma is present. The visualized pulmonary arteries enhance normally. No adenopathy is present. The intra-abdominal aorta and its branches enhance normally. The aorta is normal in caliber. The common iliac, internal and external iliac, common femoral and proximal superficial femoral and profunda femoral arteries enhance normally. There is soft tissue stranding and probable pseudoaneurysm of the right common femoral artery due to recent procedure. Minimal bibasilar dependent atelectasis is present. The lungs are otherwise clear. There is no pleural effusion or pneumothorax. The visualized liver, gallbladder, spleen, pancreas, adrenal glands, kidneys, ureters and bladder appear grossly normal. The prostate gland appears grossly normal. The large and small bowel are grossly normal. There is no free air or free fluid. No adenopathy is seen. DIAGNOSIS: There is graft at the mid ascending thoracic aorta. No evidence of aortic dissection, intramural hematoma or aneurysm is seen. There is a small amount of pericardial fluid. There is a questionable small right common femoral artery pseudoaneurysm. Edited by Lolis Alcala on 06/12/2015 2:08 PM Procedure Note Stefano Chauhan MD - 06/12/2015 CT ANGIOGRAM CHEST, ABDOMEN AND PELVIS HISTORY: Aortic dissection repair followup. TECHNIQUE: Precontrast images of the thorax were followed by multiple contiguous axial images of the chest, abdomen and pelvis with intravenous administration of 100 cc Omnipaque 350. There is no prior examination for comparison. Precontrast imaging of the thorax fails to demonstrate evidence of an intramural hematoma within the ascending thoracic aorta. Following intravenous contrast administration, there is normal contrast opacification of the aorta and its branches. The ascending thoracic aorta is mildly ectatic. There is evidence of a circumferential graft within the mid ascending thoracic aorta. The visualized aortic root and coronary arteries appear grossly normal. The heart size is normal. There is a small amount of pericardial fluid. There is soft tissue stranding within the thorax and recent poststernotomy changes are present consistent with recent surgery. No mediastinal hematoma is present. The visualized pulmonary arteries enhance normally. No adenopathy is present. The intra-abdominal aorta and its branches enhance normally. The aorta is normal in caliber. The common iliac, internal and external iliac, common femoral and proximal superficial femoral and profunda femoral arteries enhance normally. There is soft tissue stranding and probable pseudoaneurysm of the right common femoral artery due to recent procedure. Minimal bibasilar dependent atelectasis is present. The lungs are otherwise clear. There is no pleural effusion or pneumothorax. The visualized liver, gallbladder, spleen, pancreas, adrenal glands, kidneys, ureters and bladder appear grossly normal. The prostate gland appears grossly normal. The large and small bowel are grossly normal. There is no free air or free fluid. No adenopathy is seen. DIAGNOSIS: There is graft at the mid ascending thoracic aorta. No evidence of aortic dissection, intramural hematoma or aneurysm is seen. There is a small amount of pericardial fluid. There is a questionable small right common femoral artery pseudoaneurysm. Edited by Lolis Alcala on 06/12/2015 2:[address] MD [address] ORDERABLES * CARDIAC PROCEDURE ORDER (05/02/2015) Chevy Celaya MD CARDIAC SERVICES ORD ERABLES * CARDIAC ECHOCARDIOGRAM COMPLETE ORDER (05/02/2015) Chevy Celaya MD ECHO ORDERABLES * VAS VENOUS DUPLEX LE BILATERAL (10/19/2014 2:54 PM CDT) Anatomical Region Laterality Modality Echo 10/19/2014 2:03 PM CDT Narrative Procedure Note Keith Guerra MD - 10/25/[address] [place] [address] [facility] Ultrasound Report Pat.Name: GULSHAN NESS Pat.ID: [id number] St.Date: 10/19/2014 Exam Time: 2:03:00 PM Study Type:Venous Reflux Age: 8 1965,48Y Sex: MALE Sonogrphr: Sharmaine Sosa RVT, [facility] Pat. Stat.:Outpatient CPT - 4: 10009 Reason for Study:Edema, Leg pain Procedures:Venous Reflux Complete - Bilateral Visit ID: [id number] SUMMARY: All superficial and deep veins in the lower extremities are compressible. There was no reflux >500 msec identified in the right or left lower extremities. No reflux was seen in the deep venous system. FINDINGS: Procedure: Venous duplex imaging of both lower extremities was performed using color flow and spectral Doppler analysis. B-mode imaging and color flow Doppler was used to evaluate for venous insufficiency with patient in the reverse Trendelenburg position. Study Quality: This study is of adequate technical quality. Signed 10/25/2014 02:20 PM Inge Guerra MD, [facility] Justin Duque MD VASCULAR LAB ORDERAB LES * (ABNORMAL) BASIC METABOLIC PANEL (CALCIUM TOTAL) (10/02/2014 8:39 AM CDT) Only the most recent of4 resultswithin the time period is included. Glucose 89 74 - 106 mg/dL 10/02/2014 9:02 AM [facility] Sodium 135(L) 136 - 145 mmol/L 10/02/2014 9:02 AM [facility] Potassium 4.0 3.5 - 5.1 mmol/L 10/02/2014 9:02 AM [facility] Chloride 101 98 - 107 mmol/L 10/02/2014 9:02 AM [facility] CO2 29 22 - 31 mmol/L 10/02/2014 9:02 AM [facility] Calcium 9.4 8.5 - 10.1 mg/dL 10/02/2014 9:02 AM [facility] Anion Gap 5 5 - 15 mmol/L 10/02/2014 9:02 AM [facility] BUN 27(H) 7 - 21 mg/dL 10/02/2014 9:02 AM [facility] Creatinine 1.12 0.50 - 1.30 mg/dL 10/02/2014 9:02 AM [facility] eGFR by MDRD >60 >60 mL/min/1.7 3m2 10/02/2014 9:02 AM [facility] eGFR by MDRD >60 >60 mL/min/1.7 3m2 10/02/2014 9:02 AM [facility] Blood BLOOD SPECIMEN / Unknown Lab Venipuncture / Unknown 10/02/2014 8:39 AM CDT 10/02/2014 8:43 AM CDT Justin Duque MD LAB - CHEMISTRY [place] Performing Organization Address City/[facility]/ZIP Co de Phone Number [facility] [address] [place] [phone] * CK BLOOD (10/02/2014 8:39 AM CDT) CK 129 35 - 232 U/L 10/02/2014 9:02 AM [facility] Blood BLOOD SPECIMEN / Unknown Lab Venipuncture / Unknown 10/02/2014 8:39 AM CDT 10/02/2014 8:43 AM CDT Justin Duque MD LAB - CHEMISTRY [place] [facility] [address] [place] [phone] * LIPID PROFILE (10/02/2014 8:39 AM CDT) Cholesterol 159 <200 mg/dL 10/02/2014 9:02 AM [facility] Triglycerides 75 <150 mg/dL 10/02/2014 9:02 AM [facility] HDL Cholesterol 50 >40 mg/dL 10/02/2014 9:02 AM [facility] LDL Calculated 94 <130 mg/dL 10/02/2014 9:02 AM [facility] VLDL Calculated 15 <=30 mg/dL 10/02/2014 9:02 AM [facility] Chol HDL Ratio 3.2 <4.5 10/02/2014 9:02 AM [facility] LDL/HDL Ratio 1.9 <5.0 10/02/2014 9:02 AM [facility] Blood BLOOD SPECIMEN / Unknown Lab Venipuncture / Unknown 10/02/2014 8:39 AM CDT 10/02/2014 8:43 AM CDT Justin Duque MD LAB - CHEMISTRY [place] [facility] Organization Address City/State/ZIP Co de Phone Number [facility] [address] [address] * XR KNEE BILAT ONE OR TWO VIEWS (09/19/2014 12:22 PM CDT) Anatomical Region Laterality Modality Lower Extremity Radiographic Nayla ging 09/19/2014 1:37 PM CDT Impressions 09/19/2014 2:26 PM CDT Mild degenerative change is present at the lateral compartment of the right knee. Edited by Bonnie Lockhart on 09/19/2014 2:20 PM Narrative 09/19/2014 2:26 PM CDT BILATERAL KNEES INDICATION: Increasing knee pain times years. FINDINGS: AP and lateral views of both knees are submitted. No pathologic joint effusion, fracture, or dislocation is seen. There is osteophytic spurring at the right lateral femoral condyle. Joint spaces are well-preserved. Procedure Note Loretta Leavitt MD - 09/19/2014 BILATERAL KNEES INDICATION: Increasing knee pain times years. FINDINGS: AP and lateral views of both knees are submitted. No pathologic joint effusion, fracture, or dislocation is seen. There is osteophytic spurring at the right lateral femoral condyle. Joint spaces are well-preserved. IMPRESSION Mild degenerative change is present at the lateral compartment of the right knee. Edited by Bonnie Lockhart on 09/19/2014 2:20 PM Justin Duque MD DIAGNOSTIC IMAGING O RDERABLES * CARDIAC RHYTHM STRIP ORDER (05/21/2014 6:19 PM [employer]) Narrative 05/21/2014 6:19 PM [employer] Ordered by an unspecified provider. Scanned Document CARDIAC SERVICES ORD ERABLES * VANCOMYCIN LEVEL RANDOM (05/19/2014 10:12 AM [employer]) Only the most recent of2 resultswithin the time period is included. Vancomycin Random 16.1 ug/mL 05/19/2014 10:40 AM [employer] [facility] Blood BLOOD SPECIMEN / Unknown Lab Venipuncture / Unknown 05/19/2014 10:12 AM [employer] 05/19/2014 10:17 AM [facility] Narrative [facility] - 05/19/2014 10:40 AM [facility] No reference range available for random Vancomycin levels. All results interpreted by ordering physician. Dylon Villar DO LAB - CHEMISTRY [place] [facility] Organization Address City/State/ZIP Co de Phone Number [facility] [address] [place] [address] * (ABNORMAL) CBC W AUTO DIFFERENTIAL (05/19/2014 5:11 AM [facility]) Only the most recent of4 resultswithin the time period is included. WBC 9.3 4.4 - 10.7 x10^9/L 05/19/2014 5:38 AM [facility] RBC 4.66 3.80 - 5.40 x10^12/L 05/19/2014 5:38 AM [facility] Hemoglobin 13.8 12.0 - 17.6 gm/dL 05/19/2014 5:38 AM [facility] Hematocrit 40.5 35.2 - 51.7 % 05/19/2014 5:38 AM [facility] MCV 86.9 80.7 - 98.3 fl 05/19/2014 5:38 AM [facility] MCH 29.6 26.7 - 34.0 pg 05/19/2014 5:38 AM [facility] MCHC 34.1 30.8 - 35.9 gm/dL 05/19/2014 5:38 AM [facility] Platelet Count 348 153 - 416 x10^9/L 05/19/2014 5:38 AM [facility] RDW-CV 12.8 12.1 - 14.9 % 05/19/2014 5:38 AM [facility] MPV 9.1(L) 9.4 - 12.9 fl 05/19/2014 5:38 AM [facility] Neutrophils % 67.1 44.0 - 73.0 % 05/19/2014 5:38 AM [facility] Lymphocytes % 17.8(L) 20.0 - 43.0 % 05/19/2014 5:38 AM [facility] Monocytes % 8.0 5.0 - 13.0 % 05/19/2014 5:38 AM [facility] Eosinophils % 5.2 0.0 - 6.0 % 05/19/2014 5:38 AM [facility] Basophils % 0.3 0.0 - 2.0 % 05/19/2014 5:38 AM [facility] Immature Granulocytes 1.6(H) 0 - 1 % 05/19/2014 5:38 AM [facility] Neutrophil Absolute 6.25 2.01 - 7.14 x10^9/L 05/19/2014 5:38 AM [facility] Lymphocytes Absolute 1.66 1.07 - 3.94 x10^9/L 05/19/2014 5:38 AM [facility] Monocytes Absolute 0.75 0.26 - 1.07 x10^9/L 05/19/2014 5:38 AM [facility] Eosinophils Absolute 0.48(H) 0 - 0.47 x10^9/L 05/19/2014 5:38 AM [facility] Basophils Absolute 0.03 0 - 0.08 x10^9/L 05/19/2014 5:38 AM [facility] Blood BLOOD SPECIMEN / Unknown Lab Venipuncture / Unknown 05/19/2014 5:11 AM [facility] 05/19/2014 5:27 AM [facility] Dylon Villar DO LAB - HEMATOLOGY ORD ERABLES Performing Organization Address City/State/[facility] Co de Phone Number [facility] [address] [place] [address] * GROSS + MICRO EXAM (STL) (05/17/2014 1:39 PM [facility]) Case Report Surgical Pathology Report Case: [id number] Authorizing Provider: Chun Helm MD Collected: 05/17/2014 01:39 PM Ordering Location: [facility] Received: 05/17/2014 02:23 PM Pathologist: Marlys Meza MD Specimen: Tissue, skin and subcutaneous tissue right thigh 05/21/2014 3:43 PM [facility] Final Diagnosis Skin and soft tissue, right thigh, excision: - Ulceration and subcutaneous abscess KL/vivien 05/21/2014 3:43 PM [facility] Gross Description Received in formalin in a container labeled Gulshan Ness, skin and subcutaneous tissue right thigh. The container holds a 2 x 1.5 x 1 cm mark skin ellipse with attached yellow-mark soft tissue. Sectioning shows a yellow-mark cut surface. Assistant Foreman sections from the midportion of the specimen are submitted in a cassette labeled A1. DYT/rtc 05/21/2014 3:43 PM [facility] Microscopic Description Histologic sections of the right thigh lesion show ulceration with acute and chronic inflammation and abscess formation. There is no evidence of malignancy. KL/vivien 05/21/2014 3:43 PM [facility] Pathology/Cytolo gy TISSUE SPECIMEN / Unknown 05/17/2014 1:39 PM [employer] 05/17/2014 2:23 PM [employer] Comment:unknown Chun Helm MD LAB - PATHOLOGY/CYTO LOGY ORDERABLES Performing Organization Address City/State/[facility] Co de Phone Number [facility] [address] [place] [address] * (ABNORMAL) CULTURE TISSUE+GRAM STAIN (05/17/2014 1:36 PM [employer]) Culture Heavy growth Staphylococcus aureus (MRSA)(AA) JESSY 05/19/2014 9:14 AM [facility] Gram Stain Heavy (> or = 30 per high power field) White blood cells 05/19/2014 9:14 AM [facility] Gram Stain Moderate Gram positive cocci 05/19/2014 9:14 AM [facility] Microbiology SOFT TISSUE BIOPSY SPECIMEN / Unknown 05/17/2014 1:36 PM [employer] 05/17/2014 2:17 PM [employer] Comment:unknown Narrative [facility] - 05/19/2014 9:14 AM [facility] Methicillin Resistant Staphylococci are resistant to all currently available beta-lactam antibiotics with the exception of the newer cephalosporins with anti-MRSA activity. Contact precautions required. Organism Antibiotic Method Susceptibility Staphylococcus aureus methicillin-resistant (MRSA) Ciprofloxacin JESSY <=0.5 ug/mL: Susceptible Staphylococcus aureus methicillin-resistant (MRSA) Clindamycin JESSY 0.25 ug/mL: Susceptible Staphylococcus aureus methicillin-resistant (MRSA) Doxycycline JESSY <=0.5 ug/mL: Susceptible Staphylococcus aureus methicillin-resistant (MRSA) Erythromycin JESSY >=8 ug/mL: Resistant Staphylococcus aureus methicillin-resistant (MRSA) Gentamicin JESSY <=0.5 ug/mL: Susceptible Staphylococcus aureus methicillin-resistant (MRSA) Inducible Clindamycin Resistance JESSY NEG ug/mL: - Staphylococcus aureus methicillin-resistant (MRSA) Levofloxacin JESSY <=0.12 ug/mL: Susceptible Staphylococcus aureus methicillin-resistant (MRSA) Linezolid JESSY 2 ug/mL: Susceptible Staphylococcus aureus methicillin-resistant (MRSA) Oxacillin JESSY >=4 ug/mL: Resistant Staphylococcus aureus methicillin-resistant (MRSA) Tetracycline JESSY <=1 ug/mL: Susceptible Staphylococcus aureus methicillin-resistant (MRSA) Trimethoprim-sulfamethoxa zole JESSY <=10 ug/mL: Susceptible Staphylococcus aureus methicillin-resistant (MRSA) Vancomycin JESSY <=0.5 ug/mL: Susceptible Chun Helm MD LAB - MICROBIOLOGY O ALENA Performing Organization Address City/[facility] Co de Phone Number [facility] [address] * (ABNORMAL) CULTURE ANAEROBE (05/17/2014 1:36 PM [employer]) Only the most recent of2 resultswithin the time period is included. Culture Heavy growth Prevotella bivia(A) JESSY 05/23/2014 8:27 AM [employer] [facility] Comment:Beta Lactamase Posit bry Microbiology SOFT TISSUE BIOPSY SPECIMEN / Unknown 05/17/2014 1:36 PM [employer] 05/17/2014 2:17 PM [employer] Comment:unknown Chun Helm MD LAB - MICROBIOLOGY O uControl Performing Organization Address [facility] Co de Phone Number [facility] [address] [facility] [address] [facility] [address] [place] * (ABNORMAL) CULTURE MRSA (05/15/2014 9:09 PM [employer]) Culture Growth of Staphylococcus aureus (MRSA)(A) JESSY 05/17/2014 7:35 AM [employer] [facility] Microbiology SPECIMEN FROM NASAL FOSSAE / Unknown 05/15/2014 9:09 PM [employer] 05/15/2014 9:16 PM [employer] Narrative [facility] - 05/17/2014 7:35 AM [employer] Methicillin Resistant Staphylococci are resistant to all currently available beta-lactam antibiotics with the exception of the newer cephalosporins with anti-MRSA activity. Contact precautions required. 05/17/2014 7:32 AM Shasta Nunez RN notified. Read back and acknowledged results. Evelin Navarro MT([facility]) Dylon Villar DO LAB - MICROBIOLOGY O RDERABLES [facility] [address] [place] [address], [facility] * (ABNORMAL) CULTURE WOUND+GRAM STAIN (05/15/2014 4:08 PM [employer]) Culture Moderate Growth Staphylococcus aureus (MRSA)(A) JESSY 05/17/2014 11:24 AM [employer] [facility] Gram Stain Heavy White blood cells 05/17/2014 11:24 AM [facility] Gram Stain Light Gram positive cocci 05/17/2014 11:24 AM [employer] [facility] Microbiology SPECIMEN FROM ABSCESS / Unknown 05/15/2014 4:08 PM [employer] 05/15/2014 4:13 PM [employer] Narrative [facility] - 05/17/2014 11:24 AM [employer] Methicillin Resistant Staphylococci are resistant to all currently available beta-lactam antibiotics with the exception of the newer cephalosporins with anti-MRSA activity. Contact precautions required. Organism Antibiotic Method Susceptibility Staphylococcus aureus methicillin-resistant (MRSA) Ciprofloxacin JESSY <=0.5 ug/mL: Susceptible Staphylococcus aureus methicillin-resistant (MRSA) Clindamycin JESSY 0.25 ug/mL: Susceptible Staphylococcus aureus methicillin-resistant (MRSA) Doxycycline JESSY <=0.5 ug/mL: Susceptible Staphylococcus aureus methicillin-resistant (MRSA) Erythromycin JESSY >=8 ug/mL: Resistant Staphylococcus aureus methicillin-resistant (MRSA) Gentamicin JESSY <=0.5 ug/mL: Susceptible Staphylococcus aureus methicillin-resistant (MRSA) Inducible Clindamycin Resistance JESSY NEG ug/mL: - Staphylococcus aureus methicillin-resistant (MRSA) Levofloxacin JESSY <=0.12 ug/mL: Susceptible Staphylococcus aureus methicillin-resistant (MRSA) Linezolid JESSY 2 ug/mL: Susceptible Staphylococcus aureus methicillin-resistant (MRSA) Oxacillin JESSY >=4 ug/mL: Resistant Staphylococcus aureus methicillin-resistant (MRSA) Tetracycline JESSY <=1 ug/mL: Susceptible Staphylococcus aureus methicillin-resistant (MRSA) Trimethoprim-sulfamethoxa zole JESSY <=10 ug/mL: Susceptible Staphylococcus aureus methicillin-resistant (MRSA) Vancomycin JESSY <=0.5 ug/mL: Susceptible Dylon Villar DO LAB - MICROBIOLOGY O RDERABLES Performing Organization Address [facility] Co de Phone Number [facility] [address] [place] [address], [facility] * CULTURE BLOOD (05/14/2014 10:08 PM [employer]) Only the most recent of2 resultswithin the time period is included. [facility] Culture No Growth JESSY 05/20/2014 4:54 AM [facility] Blood PERIPHERAL BLOOD / Unknown Venipuncture / Unknown 05/14/2014 10:08 PM [employer] 05/14/2014 10:17 PM [employer] Arcelia Sepulveda PA-C LAB - MICROBIOLOGY O RDJUANCARLOSBLES Performing Organization Address [facility] Co de Phone Number [facility] [address] [facility] [place] [address], [facility] * (ABNORMAL) COMPREHENSIVE METABOLIC PANEL (05/14/2014 9:26 PM [employer]) Pathologist [facility] Glucose 89 74 - 106 mg/dL 05/14/2014 9:54 PM [facility] Sodium 132(L) 136 - 145 mmol/L 05/14/2014 9:54 PM [facility] Potassium 3.1(L) 3.5 - 5.1 mmol/L 05/14/2014 9:54 PM [facility] Chloride 97(L) 98 - 107 mmol/L 05/14/2014 9:54 PM [facility] CO2 30 22 - 31 mmol/L 05/14/2014 9:54 PM [facility] Calcium 8.9 8.5 - 10.1 mg/dL 05/14/2014 9:54 PM [facility] Anion Gap 5 5 - 15 mmol/L 05/14/2014 9:54 PM [facility] BUN 14 7 - 21 mg/dL 05/14/2014 9:54 PM [facility] Creatinine 1.23 0.50 - 1.30 mg/dL 05/14/2014 9:54 PM [facility] eGFR by MDRD >60 >60 mL/min/1.7 3m2 05/14/2014 9:54 PM [facility] eGFR by MDRD >60 >60 mL/min/1.7 3m2 05/14/2014 9:54 PM [facility] Alkaline Phosphatase 107 38 - 126 U/L 05/14/2014 9:54 PM [facility] ALT 23 12 - 78 U/L 05/14/2014 9:54 PM [facility] AST 15 5 - 40 U/L 05/14/2014 9:54 PM [facility] Protein Total 7.9 6.4 - 8.2 gm/dL 05/14/2014 9:54 PM [facility] Albumin 2.8(L) 3.4 - 5.0 gm/dL 05/14/2014 9:54 PM [facility] Bilirubin Total 1.0 0.2 - 1.0 mg/dL 05/14/2014 9:54 PM [facility] Blood BLOOD SPECIMEN / Unknown Venipuncture / Unknown 05/14/2014 9:26 PM [employer] 05/14/2014 9:35 PM [facility] Arcelia Sepulveda PA-C LAB - CHEMISTRY [place] [facility] Organization Address City/State/ZIP Co de Phone Number [facility] [address] [address]
--- OUTSIDE RECORDS SUMMARY | 2024-06-18 18:52 | XMS_ITS | Clinical Summary ---
Author Organization [facility] Address [address] [place] [address] Care Team Providers Care Fruit Pitter Name Role Phone Jaycob Lerner DO Unavailable [phone] Rose Barker Primary Care Provider + Karo [...] 03/12/2023 Assessment & Plan (06/06/2023 12:53 AM WOOD POLE TREATER): Risks, benefits and alternatives were discussed. Risks [...] visit. Assessment & Plan (07/10/2022 10:13 AM WOOD POLE TREATER): - Plan to continue IV Cefepime at [...] concerns Assessment & Plan (06/12/2022 12:55 PM WOOD POLE TREATER): - Plan to continue IV Cefepime at [...] concerns Assessment & Plan (06/02/2022 11:06 AM WOOD POLE TREATER): - Appreciate ID consult 05/20 w/ sign [...] c/b retroperitoneal bleed and afib). Discharged to [facility] 04/29/2022 and signed out AMA 05/02. He fell at home and found to have R iliacus and body wall hematoma that had slightly decreased from 04/2022 scan. Transferred to [facility] 05/04. ....Plan will be for at least 6 weeks of cefepime and consider a PET as outpatient to evaluate if need for suppression. RUBINA done 05/22 (result pending). Follow Up Plan: fax results to [phone], follow up with Dr. Maryanne KNOX in 2 weeks, After discharge additional questions can be directed to the clinic at [phone], and Patient has been educated about the risks and benefits of IV antibiotics (OPAT) Assessment & Plan (05/21/2022 12:17 PM WOOD POLE TREATER): 05/18 Blood cultures positive PSEUDOMONAS AERUGINOSA 2 [...] vegetations Assessment & Plan (05/20/2022 12:42 PM WOOD POLE TREATER): 05/18 Blood cultures positive PSEUDOMONAS AERUGINOSA 2 of 2 bottles sensitive to cefepime ID consult placed 05/19 - waiting on input but for now continue cefepime and vancomycin Monitor vanc trough Daily blood cultures until negative 48 hours. Depression 05/20/2022 Assessment & Plan (05/22/2022 8:56 AM WOOD POLE TREATER): -Patient's mood is very low given long hospitalization and now bacteremia. (History of tearful & feeling depressed) -Ongoing celexa (w baseline QTc) -patient is Adventism and is agreeable to having Spiritual care support Assessment & Plan (05/21/2022 12:29 PM WOOD POLE TREATER): Patient's mood is very low given long hospitalization and now bacteremia. He is tearful this morning. He reports feeling depressed. - started celexa - check baseline QTc - patient is Adventism and is agreeable to having Spiritual care come and see him Assessment & Plan (05/20/2022 12:44 PM WOOD POLE TREATER): Patient's mood is very low given long hospitalization and now bacteremia. He is tearful this morning. He reports feeling depressed. - will start celexa - check baseline QTc - patient is Adventism and is agreeable to having Spiritual care come and see him Pulmonary embolism 05/18/2022 Assessment & Plan (06/03/2022 10:43 AM WOOD POLE TREATER): -CT scan-C/A/P- (05/18) with new finding of PE - subsegmental left pulmonary embolism. There is no evidence of right heart strain. -LE venous duplex (05/19) positive right calf DVT -Goal INR 2.0-3.0 -Last night, INR = 2.2 Assessment & Plan (05/21/2022 12:36 PM WOOD POLE TREATER): CT scan 05/18 with new finding of PE - subsegmental left pulmonary embolism. There is no evidence of right heart strain. / duplex LE, positive right calf DVT Started on low PTT heparin gtt nomogram and coumadin Continue coumadin Assessment & Plan (05/20/2022 12:26 PM WOOD POLE TREATER): CT scan 05/18 with new finding of PE - subsegmental left pulmonary embolism. There is no evidence of right heart strain. / duplex LE, positive right calf DVT Started on low PTT heparin gtt and coumadin Continue coumadin Atrial fibrillation (CMS/HCC) 04/18/2022 Assessment & Plan (06/03/2022 10:42 AM WOOD POLE TREATER): -Most likely AF with the recent surgery 03/31/22 -Continues on Coumadin & amiodarone therapy (200 mg daily) -Continues in NSR per telemetry Assessment & Plan (05/21/2022 12:12 PM WOOD POLE TREATER): Most likely AF with the recent surgery 03/31/22 Assessment & Plan (05/12/2022 8:04 AM WOOD POLE TREATER): Most likely AF with the recent surgery 03/31/22 Assessment & Plan (04/28/2022 4:01 PM WOOD POLE TREATER): -developed during his post-op stay -Received DCCV/RUBINA on 04/10 -Continue daily amiodarone, at present, plus BB therapy -No longer on anti-coagulation due to recent retroperitoneal bleed - not planning to restart -currently SR -TTE no evidence of thrombi Assessment & Plan (04/24/2022 3:54 PM WOOD POLE TREATER): -developed during his post-op stay -Received DCCV/RUBINA on 04/10 -Continue daily amiodarone, at present, plus BB therapy -No longer on anti-coagulation due to recent retroperitoneal bleed - not planning on restarting -currently SR -ordered TTE to r/o LA thrombus Anemia 04/18/2022 Assessment & Plan (05/26/2022 8:29 AM WOOD POLE TREATER): Expected, due to recent surgery (Post-op ABLA) Labs now switched to twice weekly, during hospital stay Consider transfusing for Hgb < 7 & symptomatic Expect slow uptrend Assessment & Plan (04/28/2022 4:01 PM WOOD POLE TREATER): Expected, due to recent redo sternotomy (cardiac surgery) 04/20 patient with retroperitoneal hematoma s/p fall - imaging without areas of active bleeding Has required multiple units of PRBC with last unit given morning of 04/23 with appropriate response to unit Consider transfusion for Hgb < 7 and symptomatic Daily CBC, while inpatient Expect slow uptrend Continue PPI Assessment & Plan (04/24/2022 3:43 PM WOOD POLE TREATER): Expected, due to recent redo sternotomy (cardiac [...] 04/18/2022 Assessment & Plan (06/03/2022 10:42 AM WOOD POLE TREATER): -Ongoing coumadin therapy -Pt has Rt LE DVT (per duplex) and PE (per recent CT scan) -Goal INR ~ 2.0-3.0 -Last night, INR = 2.2 on stable dose of coumadin 8 mg -Heparin drip has been discontinued per Dr. Perry Assessment & Plan (04/25/2022 9:20 AM WOOD POLE TREATER): Due to retroperitoneal bleeding coumadin therapy was stopped, not planning to restart resolved Assessment & Plan (04/24/2022 3:47 PM WOOD POLE TREATER): Due to retroperitoneal bleeding coumadin therapy was stopped, not planning to restart resolved Acute on chronic renal failure 03/29/2022 Assessment & Plan (06/03/2022 10:42 AM WOOD POLE TREATER): -Avoiding nephrotoxins, not on lasix -Creat peaked at 1.68 during past admission - creatinine up to 1.9 last night again, hold diuretics, repeat BMP in am Looks like new norm is going to be around ~1.6-1.8 -Stopped lasix related creatinine increase and ~ 9 kg below pre-admission weight Assessment & Plan (05/21/2022 12:29 PM WOOD POLE TREATER): POA Creat peaked at 1.68 during past admission Cr 1.62 Decrease lasix to daily Cbc, BMP daily Will continue to monitor Avoid nephrotoxins Assessment & Plan (05/20/2022 12:06 PM WOOD POLE TREATER): POA Creat peaked at 1.68 during past admission, most recent 1.31 Cr 1.53 Continue lasix bid Cbc, BMP daily Will continue to monitor Avoid nephrotoxins 05/18 NA 128 last night, FW restrict 1L, he had trank almost 2L of soda the day before and NA was 127 Na 135 on AML Assessment & Plan (04/28/2022 4:00 PM WOOD POLE TREATER): Patient carries a history of CKD. No recent labs here On admission - Cr 03/2020 was 1.37 Appears to have developed FOZIA on CKD Cr peaked on 04/20 at 3.09 - continues to down trend with Cr 1.45 on AML Avoiding nephro-toxics Daily BMP, while inpatient Continue I &O, daily weights Lasix daily Assessment & Plan (04/24/2022 3:40 PM WOOD POLE TREATER): Patient carries a history of CKD. No recent labs here On admission - Cr 03/2020 was 1.37 Appears to have developed FOZIA on CKD Cr peaked on 04/20 at 3.09 - continues to down trend with Cr 1.49 on AML Avoiding nephro-toxics Daily BMP, while inpatient Continue I &O, daily weights Assessment & Plan (03/29/2022 3:40 PM WOOD POLE TREATER): Patient carries a history of CKD. No recent labs here - Cr 03/2020 was 1.37 -hold Lisinopril-HCT in lizette-operative setting -hydration with IVFs of NS at 75mL/hr in anticipation of contrast load for testing Coronary artery disease 03/19/2022 Overview (03/24/2022): Added automatically from request for surgery [id number] Assessment & Plan (04/25/2022 9:20 AM WOOD POLE TREATER): See thoracic aortic aneurym problem, above No benjamin, related to elevated BUN/creatinine Assessment & Plan (04/18/2022 2:36 PM WOOD POLE TREATER): See thoracic aortic aneurym problem, above No benjamin, related to elevated BUN/creatinine Primary osteoarthritis of right hip 03/12/2020 Overview (03/12/2020): Added automatically from request for surgery [id number] Hypertension 02/20/2020 Assessment & Plan (12/07/2022 8:42 AM CDT): - Referral placed to Cardiology, he states that he does not have a medical records custodian. BP initially was elevated on arrival. He has stopped taking some of his antihypertensive medications. He would like to establish care. Assessment & Plan (06/03/2022 10:41 AM WOOD POLE TREATER): Ongoing daily amlodipine and BID coreg SBP stable at 105-116/ Assessment & Plan (04/25/2022 9:20 AM WOOD POLE TREATER): -Home meds: coreg and lisinopril-HCT -continue coreg Assessment & Plan (04/24/2022 3:47 PM WOOD POLE TREATER): -Home meds: coreg and lisinopril-HCT -continue coreg Assessment & Plan (03/29/2022 3:37 PM WOOD POLE TREATER): Home meds: coreg and lisinopril-HCT -continue home coreg -hold lisinopril-HCT in pre-op setting Disorder of lipid metabolism 02/20/2020 Primary osteoarthritis of left hip 12/21/2019 Overview (12/21/2019): Added automatically from request for surgery [id number] Chronic hepatitis C virus infection (CMS/HCC) Assessment & Plan (06/12/2022 1:00 PM WOOD POLE TREATER): - Patient reports that he has not [...] up. Assessment & Plan (05/22/2022 8:54 AM WOOD POLE TREATER): ID note (05/20) with following included: Continue outpatient follow-up with Hepatology who is taking the lead on hepatitis C treatment. Assessment & Plan (04/25/2022 9:20 AM WOOD POLE TREATER): Patient is set to start treatment for Hep C in the next 2 weeks -follows here for Hep C Assessment & Plan (03/30/2022 8:38 AM WOOD POLE TREATER): Patient is set to start treatment for Hep C in the next 2 weeks -follows here for Hep C Assessment & Plan (03/29/2022 3:37 PM WOOD POLE TREATER): Patient is set to start treatment for [...] 05/30/2015 Assessment & Plan (06/03/2022 10:44 AM WOOD POLE TREATER): -Post-op from 03/31/2022 for: redo sternotomy, replacement [...] june Assessment & Plan (05/21/2022 12:38 PM WOOD POLE TREATER): 03/31/2022 for redo sternotomy, replacement of the [...] denials in CM notes - need for halfway IV antibiotic now indicated, will look for LTACH Assessment & Plan (05/19/2022 8:47 AM WOOD POLE TREATER): 03/31/2022 for redo sternotomy, replacement of the [...] notes Assessment & Plan (04/25/2022 9:21 AM WOOD POLE TREATER): -s/p AVR (27 bio), Ascending, shy-arch repl, [...] planning Assessment & Plan (04/24/2022 3:57 PM WOOD POLE TREATER): -s/p AVR (27 bio), Ascending, shy-arch repl, [...] 09/19/2014 Assessment & Plan (05/30/2022 10:05 AM WOOD POLE TREATER): -Pt reported decreased sensation in RLE- unchanged [...] patient with the contact information for the [facility] EMG lab below: --Electromyography Studies (EMG) - [phone] - Neurology will arrange outpatient followup. Please provide the contact information for the Neurology outpatient clinic below. The patient will be seeing Dr. Guan. -Neurology - [facility] [address], [address] [place] [address] Assessment & Plan (05/21/2022 12:36 PM WOOD POLE TREATER): POA Pt began to complain of lack [...] planning Assessment & Plan (05/20/2022 12:24 PM WOOD POLE TREATER): POA Pt began to complain of lack [...] 06/02/2022 Assessment & Plan (05/31/2022 10:16 AM WOOD POLE TREATER): - Most recent NA 134 -Continue FWFR, per oral fluid restrictions -Twice weekly BMP, at present Assessment & Plan (05/21/2022 12:30 PM WOOD POLE TREATER): 05/18 NA 128 last night, FW restrict 1L, he had drank almost 2L of soda the day before and NA was 127 Na 134 on AML Continue FWR Monitor daily BMP Fever 05/18/2022 05/25/2022 Assessment & Plan (05/23/2022 9:39 AM WOOD POLE TREATER): -Patient shivering on morning rounds 05/18 with temp up to 101.3 -Initial checks: Ua (-) -see bacteremia problem -Continues afebrile at present -Consider resolving this problem -dc daily blood cultures per ID, -findings on RUBINA discussed with Dr Perry, suture vs vegetation, she feels that its a suture, ID notified Assessment & Plan (05/20/2022 12:24 PM WOOD POLE TREATER): Patient shivering on morning rounds 05/18 with [...] 04/24/20222022 Assessment & Plan (05/26/2022 8:49 AM WOOD POLE TREATER): -POA- occurred during last admission -CTA at [...] problem Assessment & Plan (05/21/2022 12:37 PM WOOD POLE TREATER): POA- occurred during last admission CTA at [...] stable Assessment & Plan (05/20/2022 12:33 PM WOOD POLE TREATER): POA- occurred during last admission CTA at [...] stable Assessment & Plan (04/26/2022 10:20 AM WOOD POLE TREATER): S/p fall on 04/20 with retroperitoneal bleed [...] directed Assessment & Plan (04/24/2022 3:54 PM WOOD POLE TREATER): S/p fall on 04/20 with retroperitoneal bleed - imaging with no areas of active bleeding Stopped heparin drip and coumadin, not planning to restart anti-coagulation Has required multiple units of PRBC with last unit given morning of 04/23 with appropriate response to unit Leukocytosis 04/20/2022 04/25/2022 Assessment & Plan (04/25/2022 9:21 AM WOOD POLE TREATER): Empiric ceftriaxone ended WBC wnl Afebrile Cultures were negative CBC daily Assessment & Plan (04/24/2022 3:49 PM WOOD POLE TREATER): Empiric ceftriaxone ends today WBC wnl Afebrile Cultures were negative CBC daily Pain 04/18/2022 04/25/2022 Assessment & Plan (04/24/2022 3:49 PM WOOD POLE TREATER): Expected, due to recent surgery per redo sternotomy Ongoing PRN tylenol which he has not taken past 24 hours Ascending aortic aneurysm, u nspecified whether ruptured 03/29/2022 03/29/2022 Aortic aneurysm without rupture 03/29/2022 03/29/2022 Infectious viral hepatitis 03/29/2022 1 05/29/2021 Aneurysm of ascending aorta without rupture 03/19/2022 04/18/2022 Overview (03/24/2022): Added automatically from request for surgery [id number] Assessment & Plan (03/30/2022 8:38 AM WOOD POLE TREATER): History of emergent type A aortic dissection [...] setting Assessment & Plan (03/29/2022 3:33 PM WOOD POLE TREATER): History of emergent type A aortic dissection [...] in lizette-op setting Irregular heartbeat 02/20/2020 04/18/20 Overweight 02/20/2020 04/18/2022 Edema 09/19/2014 05/26/2022 Immunizations Name Administration Dates Next Due Hep B Vaccine 06/20/2015 Influenza, Quadrivalent, Spl it, Preservative Free, Intramuscular 04/09/2020 Influenza, Unspecified 05/10/2015 Pfizer SARS-CoV-2 Monovalent Vaccination (12+ Yrs) PURPLE 10/30/2020 Tdap 05/14/2014 Surgical History Surgery Date Site/Laterality Comments JOINT REPLACEMENT Right hip AORTA SURGERY 05/10/2014 - 05/09/2015 MULTIPLE TOOTH EXTRACTIONS HIP SURGERY JOINT REPLACEMENT 01/09/2020 - 02/07/2020 Left hip Medical History Medical History Date Comments HTN (hypertension) HLD (hyperlipidemia) Aortic dissection (HCC) hepatitis c Getting ready to start oral treatment in the next coming weeks through [facility] Obstructive sleep apnea newly dx 'd 6 weeks ago- does not have CPAP Chronic kidney disease Overweight 02/20/2020 Irregular heartbeat 02/20/2020 Aneurysm of ascending aorta without rupture (HCC) 03/19/2022 Added automatically from req uest for surgery [id number] Fever 05/18/2022 Edema 09/19/2014 Retroperitoneal bleed 04/24/2022 Family History Medical History Relation Name Comments Anesthesia problems Neg Hx Heart disease Neg Hx Stroke Neg Hx Relation Name Status Comments Father Alive Mother Social History Tobacco Use Types Packs/Day Years [...] week 05/06/2022 How often do you attend chur ch or yarsanism services? Never 05/06/2022 Do you belong to any clubs o r organizations such as evangelical groups, unions, fraternal or athletic groups, or [...] place to sleep or slept in a penitentiary (including now)? No 05/06/2022 Personal Safety Answer Date Recorded Getting School Help Needed Not on file 02/25 Sex and Gender Information Value Date Recorded Sex Assigned at Not on file Legal Sex Male 3:56 AM WOOD POLE TREATER Gender Identity Male 03/27/2020 2:49 PM WOOD POLE TREATER Sexual Orientation Straight 03/27/2020 2: 49 PM WOOD POLE TREATER Occupation Industry Job Start Date Job End Date Unemployed Not on file Not on file Not on file Obstetrics History Last Filed Vital Signs Vital Sign Reading [...] 02/10/2023 10:50 AM CDT Plan of Treatment Health Maintenance Due Date Last Done Comments Colon Cancer Screening-Colonoscopy 1965 Prostate Cancer Screening-PSA 1965 Pneumococcal vaccine <65 (1 of 2 - PCV) 12/31/1971 Regular Well Visit/Exam 18-64 12/31/1983 Zoster Vaccine (1 of 2) 12/31/2015 Depression Screening 05/03/2023 05/03/2022 Covid-19 Vaccine (2 - 2023-2 5 season) 2024 10/30/2020 Influenza Vaccine (#1) 2024 04/09/2020, 2015 DTaP/Tdap/Td Vaccine (2 - Td or Tdap) 05/14/2024 05/14/2014 Hepatitis C Screening Completed 12/15/2022 , 10/01/2022, 09/28/2022, Additional history exists Medical Devices Implanted Type Area Iap Displays Analyst Device Identifier Shelf Expiration Date Model / Serial / Lot Ter[employer]o [employer] Gelweave 8mm 30cm Suture Retention Unique Hydrolyzable Abdomen [id number] - [id number] - [id number] Implanted:Qty: 1 on 03/31/2022 by Bhavin Bnenett MD at [facility] Graft N/A: Heart [employer] [id number] 10/07/2024 [id number] / [id number] / [id number] [employer] Gelweave 30mm 30cm Suture Retention Unique Hydrolyzable Abdomen [id number] - [id number] - [id number] Implanted:Qty: 1 on 03/31/2022 by Karo Perry MD at [facility] Graft N/A: Heart [employer] [id number] 12/07/2024 [id number] / [id number] / [id number] Ter[employer] Gelweave 10mm 30cm Suture Retention Unique Hydrolyzable Abdomen 150989 - [id number] - [id number] Implanted:Qty: 1 on 03/31/2022 by Karo Perry MD at [facility] Graft N/A: Aorta [employer] [id number] 03/09/2024 [id number] / [id number] / [id number] [employer] [id number] 56mm Limit 4 Hole Hip F Hemisphere Offset Shell Acetabular - [id number] - [id number] Implanted:Qty: 1 on 01/29/2020 by Geni March MD at [facility] Left: Hip [employer] 11/28/2029 [id number] / [id number] / [employer] [id number] Trilogy 6.5mm 40mm Self Tap Hip Acetabular Cortical Screw Bone - [id number] Implanted:Qty: 1 on 01/29/2020 by Geni March MD at [facility] Left: Hip [employer] [id number] 10/07/2028 [id number] / / [id number] [employer] [id number] 36mm Lumen Hip F Liner Acetabular Longevity Sterile Latex Free - [id number] - [id number] Implanted:Qty: 1 on 01/29/2020 by Geni March MD at [facility] Left: Hip [employer] 11/26/2024 / / [employer] [id number] Trilogy 6.5mm 20mm Self Tap Screw Bone - [id number] Implanted:Qty: 1 on 01/29/2020 by Geni March MD at [facility] Left: Hip [employer] [id number] 09/06/2024 [id number] / / [id number] [employer] [id number] 16.25mm 129mm Primary Hip 47mm Taper Straight Extended Offset - S0 - [id number] Implanted:Qty: 1 on 01/29/2020 by Geni March MD at [facility] Left: Hip [employer] [id number] 06/09/2028 [id number] / 0 / [id number] [employer] [id number] 36mm Hip Acetabular +7mm 12/14 Xl Head Femoral Biolox Delta - S0 - [id number] Implanted:Qty: 1 on 01/29/2020 by Geni March MD at [facility] Left: Hip [employer] 06/09/2028 [id number] / 0 / [id number] [employer] [id number] Trilogy 6.5mm 30mm Self Tap Acetabular Cortical Screw Bone - [id number] Implanted:Qty: 1 on 04/08/2020 by Geni March MD at [facility] Right: Hip [employer] [id number] 11/22/2029 [id number] / / [id number] [employer] [id number] M/L 15mm 129mm 42mm Primary Hip 51mm Extend Offset Straight Taper - [id number] Implanted:Qty: 1 on 04/08/2020 by Geni March MD at [facility] Right: Hip [employer] [id number] 07/08/2027 [id number] / / [id number] [employer] [id number] 36mm Hip Acetabular +7mm 12/14 Xl Head Femoral Biolox Delta - [id number] Implanted:Qty: 1 on 04/08/2020 by Geni March MD at [facility] Right: Hip [employer] [id number] 10/07/2028 [id number] / / [id number] [employer] [id number] 56mm Limit 4 Hole Hip F Hemisphere Offset Shell Acetabular - [id number] Implanted:Qty: 1 on 04/08/2020 by Geni March MD at [facility] Right: Hip [employer] 11/15/2029 [id number] / / [id number] [employer] [id number] 36mm Lumen Hip F Liner Acetabular Longevity Sterile Latex Free - [id number] Implanted:Qty: 1 on 04/08/2020 by Geni March MD at [facility] Right: Hip [employer] 06/09/2024 [id number] / / [id number] [employer] [id number] Trilogy 6.5mm 40mm Self Tap Hip Acetabular Cortical Screw Bone - [id number] Implanted:Qty: 1 on 04/08/2020 by Geni March MD at [facility] Right: Hip [employer] [id number] 12/20/2029 [id number] / / [id number] [employer] 6x6in Patch Thk1.65mm [employer] Ptfe Sterile Latex Free [id number] - [id number] Implanted:Qty: 1 on 03/31/2022 by Bhavin Bennett MD at [facility] [employer] 10/04/2026 [id number] / / [employer] Inspiris Resilia Leaflet Sewing Ring 27mm Valve Aortic Bovine [id number] - [id number] - [id number] Implanted:Qty: 1 on 03/31/2022 by Karo Perry MD at [facility] N/A: Aortic Valve [employer] [id number] 11/05/2025 [id number] / [id number] / Aortic Heart Valve-03/31/2022 Implanted:2021 (Quantity not on file) Aorta [employer] RESILIA - SIZE 27MM [id number] / [id number] / Description:Inspiris Resilia Heart Valve Prosthesis, [employer], [email or web address] Procedures Procedure Name Priority Date/Time Associated Diagnosis Comments HEPATITIS C RNA, QUANTITATIVE, PCR Routine 12/15/2022 9:25 AM CDT Chronic hepatitis C without hepatic coma (CMS/HCC) (HCC) from Last 3 Months or Most Recently Relevant to Health Maintenance Results * Hepatitis C (HCV) RNA PCR, quantitative (12/15/2022 9:25 AM CDT) [facility] HCV RNA IU/mL HCV Not Detected IU/mL [...] - 12/18/2022 12:10 PM CDT Performed at: 01 - [facility] [address] [id number] [employer]er Show Motor: Luzmaria Moody MD, Phone: [phone] Karla Monroe NP LAB MICROBIOLOGY - GENER AL ORDERABLES Edited Result - Final [facility] - 01 from Last 3 Months or Most Recently Relevant to Health Maintenance Insurance [facility] [address] [facility] Advance Directives For more information, please contact: [phone] * Full Code (Latest Code Status on [...] 12:24 PM 01/30/2020 10:07 PM Care Teams Fruit Pitter Relationship Specialty Start Date End Date Rose Barker PA [address] [place] [address] PCP - General Physician Metal Painter 03/02/22 Jaycob Lerner DO [address] [place] [address] Referring Physician Cardiology 03/02/22 Karo Perry MD [id number] [place] [address] Surgeon Cardiothoracic Surgery 04/27/22 Unknown, Notinfile 04/27/22 Miscellaneous, Not In File 06/04/22
--- OUTSIDE RECORDS SUMMARY | 2024-06-18 18:52 | XMS_ITS | Clinical Summary ---
Author Organization [facility] Address [address] [place] [address] Care Team Providers Care Support Services Coordinator Name Role Phone Unavailable Primary Care Provider Unavailabl e Social History Tobacco Use Types Packs/Day Years Used Date Smoking Tobacco: Never Assessed Sex and Gender Information Value Date Recorded Sex Assigned at Not on file Legal Sex Male 6:13 PM CDT Gender Identity Not on file Sexual Orientation Not on file Plan of Treatment Health Maintenance Due Date Last Done Comments Colorectal Cancer Screening Colonoscopy (10 Years) 1965 Annual Physical 1968 Hepatitis C 12/31/1983 DTaP, Tdap and Td Vaccines ( 1 - Tdap) 1984 Hepatitis B Vaccines (1 of 3 - 19+ 3-dose series) 1984 Zoster Vaccines (1 of 2) 12/31/2015 COVID-19 Vaccine (2023-2 5 season) 2024 Influenza Adult (#1) 2024 Meningococcal B Vaccine Aged Out No l onger eligible based on patient's age to complete this topic Meningococcal Vaccine Aged Out No nadiya олег eligible based on patient's age to complete this topic Pneumococcal Vaccine: Pediat rics (0 to 5 Years) and At-Risk Patients (6 to 64 Years) Aged Out No longer eligible b ased on patient's age to complete this topic RSV Immunizations Under 20 Months Aged Out No longer eligible based on patient's age to complete this topic
--- OUTSIDE RECORDS SUMMARY | 2024-06-18 18:52 | XMS_ITS | Encounter Summary ---
Author Organization [facility] Healthcare Address [address] [place] [address] Care Team Providers Care Stockholder Name Role Phone Jaycob Lerner DO Unavailable [phone] Rose Barker Primary Care Provider + Karo Perry MD Unavailable Unknown, Notinfile Unavailable Unavailable Miscellaneous, Not In File Unavailable Unava ilable Encounter Details Date Type Department Care Team (Late st Contact Info) Description 01/08/2023 Telephone [facility] [address] [place] [address] Melvi Nesbitt RN Social History Tobacco Use Types Packs/Day Years Used Date Smoking Tobacco: Never Smokeless Tobacco: Never Alcohol Use Standard Drinks/Week Comments Never 0 [...] often do you attend chur ch or gnosticism services? Never 05/06/2022 Do you belong to any clubs o r organizations such as zoroastrianism groups, unions, fraternal or athletic groups, or [...] place to sleep or slept in a usp (including now)? 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 Gender Identity Male 03/27/2020 2:49 PM IRRIGATION PUMP INSTALLER Sexual Orientation Straight 03/27/2020 2: 49 PM IRRIGATION PUMP INSTALLER Occupation Industry Job Start Date Job End Date Unemployed Not on file Not on file Not on file documented as of this encounter Plan of Treatment Not on file documented as of this encounter Visit Diagnoses Not on filedocumented in this encounter Care Teams Stockholder Relationship Specialty Start Date End Date Rose Barker PA [address] [place] [address] PCP - General Physician Leguillon Debeader 03/02/22 Jaycob Lerner DO [address] [place] [address] Referring Physician Cardiology 03/02/22 Karo Perry MD [id number] [place] [address] Surgeon Cardiothoracic Surgery 04/27/22 Unknown, Notinfile 04/27/22 Miscellaneous, Not In File 06/04/22 documented as of this encounter
--- OUTSIDE RECORDS SUMMARY | 2024-06-18 18:52 | XMS_ITS | Encounter Summary ---
Author Organization [facility] Healthcare Address [address] [place] [address] Care Team Providers Care Road Mender Name Role Phone Jaycob Lerner DO Unavailable Rose Barker Primary Care Provider + Karo Perry MD Unavailable Unknown, Notinfile Unavailable Unavailable Miscellaneous, Not In File Unavailable Unava ilable Encounter Details Date Type Department Care Team (Late st Contact Info) Description 01/13/2023 Telephone [facility] [address] [place] [address] Enid Batres RN Social History Tobacco Use Types Packs/Day [...] often do you attend chur ch or church services? Never 05/06/2022 Do you belong to any clubs o r organizations such as yarsanism groups, unions, fraternal or athletic groups, or [...] place to sleep or slept in a senior care (including now)? 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 Gender Identity Male 03/27/2020 2:49 PM STEEL SASH ERECTOR Sexual Orientation Straight 03/27/2020 2: 49 PM STEEL SASH ERECTOR Occupation Industry Job Start Date Job End Date Unemployed Not on file Not on file Not on file documented as of this encounter Plan of Treatment Not on file documented as of this encounter Visit Diagnoses Not on filedocumented in this encounter Care Teams Road Mender Relationship Specialty Start Date End Date Rose Barker PA [address] [place] [address] PCP - General Physician Consumer Attorney 03/02/22 Jaycob Lerner DO [address] [place] [address] Referring Physician Cardiology 03/02/22 Karo Perry MD [id number] [place] [address] Surgeon Cardiothoracic Surgery 04/27/22 Unknown, Notinfile 04/27/22 Miscellaneous, Not In File 06/04/22 documented as of this encounter
--- OUTSIDE RECORDS SUMMARY | 2024-06-18 18:52 | XMS_ITS | Encounter Summary ---
Author Organization [facility] Healthcare Address [address] [place] [address] Care Team Providers Care Planner Name Role Phone Jaycob Lerner DO Unavailable [phone] Rose Barker Primary Care Provider + Karo Perry MD Unavailable Unknown, Notinfile Unavailable Unavailable Miscellaneous, Not In File Unavailable Unava ilable Encounter Details Date Type Department Care Team (Late st Contact Info) Description 01/12/2023 Telephone [facility] [address] [place] [address] Melvi Nesbitt RN Social History [...] No 06/05/2022 OASIS B1300: Health Literacy Answer Jmaes e Recorded Frequency of needing help to [...] often do you attend chur ch or mandaen services? Never 05/06/2022 Do you belong to any clubs o r organizations such as hindu groups, unions, fraternal or athletic groups, or [...] place to sleep or slept in a long-term (including now)? No 05/06/2022 Sex and Gender Information Value Date Recorded Sex Assigned at Not on file Legal Sex Male 3:56 AM FLIGHT MECHANIC Gender Identity Male 03/27/2020 2:49 PM FLIGHT MECHANIC Sexual Orientation Straight 03/27/2020 2: 49 PM FLIGHT MECHANIC Occupation Industry Job Start Date Job End Date Unemployed Not on file Not on file Not on file documented as of this encounter Plan of Treatment Not on file documented as of this encounter Visit Diagnoses Not on filedocumented in this encounter Care Teams Planner Relationship Specialty Start Date End Date Rose Barker PA [address] [place] [address] PCP - General Physician Executive Admin 03/02/22 Jaycob Lerner DO [address] [place] [address] Referring Physician Cardiology 03/02/22 Karo Perry MD [id number] [place] [address] Surgeon Cardiothoracic Surgery 04/27/22 Unknown, Notinfile 04/27/22 Miscellaneous, Not In File 06/04/22 documented as of this encounter
--- OUTSIDE RECORDS SUMMARY | 2024-06-18 18:52 | XMS_ITS | Data Portability ---
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 Lab PT/INR 2022 023 STEFANIE In-Office Order, Internal Use Only DO Not Attach Compendium DO Not Attach Compendium, Do Not Delete/merge, [id number] 3 15:44:19 PT/INR 2022 023 STEFANIE In-Office Order, Internal Use Only DO Not Attach Compendium DO Not Attach Compendium, Do Not Delete/merge, [id number] 3 18:24:18 PT/PTT, plasma 2022 023 STEFANIE [facility], [address], [place], [address], 3 17:14:13 PT/PTT, plasma 2022 023 STEFANIE [facility], [address], [place], [address], 3 08:42:18 iron + total iron-bi nding capacit y (TIBC), serum 2022 023 [facility] [facility], [address], [place], [address], 3 08:42:16 CBC w/ auto diff 2022 023 [facility] [facility], [address], [place], [address], 3 08:42:17 ferriti n, serum or plasma 2022 023 [place] [facility], [address], [place], [address], 3 08:42:17 CMP, serum or plasma 2023 024 [facility], [address], [place], [address], 4 20:08:45 lipid panel, serum 2023 024 [facility], [address], [place], [address], 4 20:08:44 PSA, total, serum or plasma 2023 024 STEFANIE Verena, [address], [place], [address], 4 08:26:37 HbA1c (hemogl obin A1c), blood 2023 024 STEFANIEANALISA Albarado, [address], [place], [address], 4 08:26:36 TSH + free T4, serum 2023 024 STEFANIEANALISA Albarado, [address], [place], [address], 4 08:26:35 iron + total iron-bi nding capacit y (TIBC), serum 2023 024 STEFANIE Ball, [address], [place], [address], 4 08:26:35 ferriti n, serum or plasma 2023 024 STEFANIE Ball, [address], [place], [address], 4 08:26:37 CBC w/ auto diff 2023 024 STEFANIE Ball, [address], [place], [address], 4 20:08:45 TSH + free T4, serum 2023 024 isabel Ball, [address], [place], [address], 4 08:30:05 CBC w/ auto diff 2023 024 isabel Ball, [address], [place], [address], 4 08:01:50 vitamin B12 + folate, serum or blood 2023 024 isabel Ball, [address], [place], [address], 4 08:30:05 CMP, serum or plasma 2023 024 isabel Ball, [address], [place], [address], 4 08:01:50 vitamin D, 25-hydr oxy, total, serum 2023 024 [email or web address] [facility], [address], [place], [address], 4 08:30:05 ferriti n, serum or plasma 2023 024 [email or web address] [facility], [address], [place], [address], 4 08:30:06 iron + total iron-bi nding capacit y (TIBC), serum 2023 024 [id number] [facility], [address], [place], [address], 4 08:30:[address] Referral physica l therapi st referra l - Left leg weaknes s, neurolo gic etiolog y. [address] [facility] (Outpatient [facility]), [address], [place], [address], 3 10:26:09 dermato logist referra l 2022 023 [facility], [address], [place], [address], 4 09:22:32 ophthal mologis t referra l 2023 024 [place] [address] [facility], [address] [facility], [place], [address], 4 11:41:57 Procedures None recorde d. Surgeries None recorde d. Imaging electro cardiog eunice [address] (Imaging), [address], [place], [address], 4 08:06:34 Medication Orders None recorde d. Patient TargetsNo targets recorded. Patient Instructions Encounter Date Encounter Id Patient Instructions Last Modified By Organization Details Last Modified Time 07/31/2022 [id number] cardiac rehabilitation* Not available 08/18/2022 14:10:44 10/23/2022 [id number] please schedule with dermatology ANUP Schedule with ortho surgery, please call Adama for referral information follow up here in one month continue warfarin treatment and monitoring with Dr Tuttle Not available 10/28/2022 08:52:20 I have reviewed the patient's medical record and the note from this clinical encounter. I was available by phone for the duration of the visit. I agree with the assessment and plan with the following addendum: Pt needs to follow up with dermatology (already established) for removal of likely cancerous lesion. Kimo Martinez MD Not available 10/28/2022 09:54:09 12/22/2022 [id number] - Call Dr Tuttle and make sure he is aware Stephan is no longer on amiodarone - schedule with [facility] for blurry vision - Find out when dermatology appointment is - schedule with kidney doctor : Tu Dumont MD: [address] [facility], [facility] [address], Not available 12/22/2022 10:32:32 05/12/2023 [id number] A healthy lifestyle: care instructions Not available 05/13/2023 08:14:27 09/13/2023 [id number] A healthy lifestyle: care instructions Not available 10/05/2023 08:48:15 Reason for Referral Physical Therapist Referral for Weakness of left leg Left leg weakness, neurologic etiology. Referring Physician: Kimo Martinez Government Affairs Manager, Encounter Date: 07/31/2022 Fire Extinguisher Sprinkler Inspector Referral for S quamous cell carcinoma of skin Referring Physician: [facility], Encounter Date: 10/23/2022 Director Of Optimization Referral for Visual impairment Referring Physician: [facility], Encounter Date: 09/13/2023 Results Created Date Observation Date Name Description Value Unit Range Abnormal Flag Note LastModifiedBy Organization Detail LastModifiedTime 07/22/19 23 07/23/2022 PT AND PTT INR 1.7 0.9-1. 2 above high normal Refer ence inter loree is for non-a ntico agula faheem patie nts. Sugge sted INR thera peuti c range for Vitam in K antag onist thera py: Stand bandar Dose (mode rate inten sity thera peuti c range ): 2.0 - 3.0 Highe r inten sity thera peuti c range 2.5 - 3.5 Not Available [facility] ([facility]) [address] [place], [address], 07/23/2022 11:13:43 07/22/19 23 07/23/2022 PT AND PTT prothrombin time 16.8 sec 9.1-12 .0 above high normal Not Available [facility] ([facility]) [address], [place], [address], 07/23/2022 11:13:43 07/22/19 23 07/23/2022 PT AND PTT APTT 32 sec 24-33 This test has not been valid ated for monit oring unfra ction ated hepar in thera py. aPTT- based thera peuti c range s for unfra ction ated hepar in thera py have not been estab sean veras. For gener al guide lines on Hepar in monit oring , refer to the [facility] Dire petra of Amanda riggs. Not Available [facility] ([facility]) [address], [place], [address], 07/23/2022 11:13:43 07/28/19 23 07/28/2022 PT AND PTT INR 1.2 0.9-1. 2 Refer ence inter loree is for non-a ntico agula faheem patie nts. Sugge sted INR thera peuti c range for Vitam in K antag onist thera py: Stand bandar Dose (mode rate inten sity thera peuti c range ): 2.0 - 3.0 Highe r inten sity thera peuti c range 2.5 - 3.5 Not Available [facility] ([facility]) [address], [place], [address], 07/28/2022 07:12:23 07/28/1907/28/2022 PT AND PTT prothrombin time 12.4 sec 9.1-12 .0 above high normal Not Available [facility] ([facility]) [address], [place], [address], 07/28/2022 07:12:23 07/28/1907/28/2022 PT AND PTT APTT 28 sec 24-33 This test has not been valid ated for monit oring unfra ction ated hepar in thera py. aPTT- based thera peuti c range s for unfra ction ated hepar in thera py have not been estab sean celeste For gener al guide lines on Hepar in monit oring , refer to the [facility] Direc petra of Amanda riggs. Not Available [facility] ([facility]) [address], [place], [address], 07/28/2022 07:12:23 07/30/19 23 07/30/2022 PT AND PTT INR 1.7 0.9-1. 2 above high normal Refer ence inter loree is for non-a ntico agula faheem patie nts. Sugge sted INR thera peuti c range for Vitam in K antag onist thera py: Stand bandar Dose (mode rate inten sity thera peuti c range ): 2.0 - 3.0 Highe r inten sity thera peuti c range 2.5 - 3.5 Not Available [facility] ([facility]) [address], [place], [address], 07/30/2022 07:12:54 07/30/1907/30/2022 PT AND PTT prothrombin time 17.2 sec 9.1-12 .0 above high normal Not Available [facility] ([facility]) [address] [place], [address], 07/30/2022 07:12:54 07/30/19 23 07/30/2022 PT AND PTT APTT 31 sec 24-33 This test has not been valid ated for monit oring unfra ction ated hepar in thera py. aPTT- based thera peuti c range s for unfra ction ated hepar in thera py have not been estab sean celeste For gener al guide lines on Hepar in monit oring , refer to the [facility] Direc torkassandra of Amanda riggs. Not Available [facility] ([facility]) [address], [place], [address], 07/30/2022 07:12:54 08/01/19 23 07/31/2022 PT/IN R INR 4.4 Not Available In-Office Order Internal Use Only DO Not Attach Compendium DO Not Attach Compendium, Do Not Delete/merge, [id number] 07/31/2022 11:32:41 08/06/19 23 08/06/2022 PT AND PTT INR 2.0 0.9-1. 2 above high normal Refer ence inter loree is for non-a ntico agula faheem patie nts. Sugge sted INR thera peuti c range for Vitam in K antag onist thera py: Stand bandar Dose (mode rate inten sity thera peuti c range ): 2.0 - 3.0 Highe r inten sity thera peuti c range 2.5 - 3.5 Not Available [facility] ([facility]) [address], [place], [address], 08/06/2022 06:17:22 08/06/19 23 08/06/2022 PT AND PTT prothrombin time 19.8 sec 9.1-12 .0 above high normal Not Available [facility] ([facility]) [address], [place], [address], 08/06/2022 06:17:22 08/06/19 23 08/06/2022 PT AND PTT APTT 32 sec 24-33 This test has not been valid ated for monit oring unfra ction ated hepar in thera py. aPTT- based thera peuti c range s for unfra ction ated hepar in thera py have not been estab lishe d. For gener al guide lines on Hepar in monit oring , refer to the [facility] Direc tory of Servi oneil. Not Available [facility] ([facility]) [address], [place], [address], 08/06/2022 06:17:22 09/29/19 23 09/29/2022 PT AND PTT INR 1.9 0.9-1. 2 above high normal Refer ence inter loree is for non-a ntico agula faheem patie nts. Sugge sted INR thera peuti c range for Vitam in K antag onist thera py: Stand bandar Dose (mode rate inten sity thera peuti c range ): 2.0 - 3.0 Highe r inten sity thera peuti c range 2.5 - 3.5 Not Available [facility] ([facility]) [address], [place], [address], 09/29/2022 07:13:41 09/29/19 23 09/29/2022 PT AND PTT prothrombin time 19.3 sec 9.1-12 .0 above high normal Not Available [facility] ([facility]) [address] [place], [address], 09/29/2022 07:13:41 09/29/19 23 09/29/2022 PT AND PTT APTT 34 sec 24-33 above high normal This test has not been valid ated for monit oring unfra ction ated hepar in thera py. aPTT- based thera peuti c range s for unfra ction ated hepar in thera py have not been estab lishe d. For gener al guide lines on Hepar in monit oring , refer to the [facility] Direc tory of Servi oneil. Not Available [facility] ([facility]) [address], [place], [address], 09/29/2022 07:13:41 09/30/19 23 09/30/2022 PT AND PTT INR 2.1 0.9-1. 2 above high normal Refer ence inter loree is for non-a ntico agula faheem patie nts. Sugge sted INR thera peuti c range for Vitam in K antag onist thera py: Stand bandar Dose (mode rate inten sity thera peuti c range ): 2.0 - 3.0 Highe r inten sity thera peuti c range 2.5 - 3.5 Not Available [facility] ([facility]) [address], [place], [address], 09/30/2022 07:14:51 09/30/19 23 09/30/2022 PT AND PTT prothrombin time 20.7 sec 9.1-12 .0 above high normal Not Available [facility] ([facility]) [address], [place], [address], 09/30/2022 07:14:51 09/30/19 23 09/30/2022 PT AND PTT APTT 35 sec 24-33 above high normal This test has not been valid ated for monit oring unfra ction ated hepar in thera py. aPTT- based thera peuti c range s for unfra ction ated hepar in thera py have not been estab sean veras. For gener al guide lines on Hepar in monit oring , refer to the [facility] Direc tory of Aamiri oneil. Not Available [facility] ([facility]) [address], [place], [address], 09/30/2022 07:14:51 10/24/19 23 10/24/2022 IRON AND TIBC iron bind.cap.(TI BC) 338 ug/dL 250-45 0 Not Available [facility] ([facility]) [address], [place], [address], 10/24/2022 08:42:16 10/24/19 23 10/24/2022 IRON AND TIBC UIBC 312 ug/dL 111-34 3 Not Available [facility] ([facility]) [address] [place], [address], 10/24/2022 08:42:16 10/24/19 23 10/24/2022 IRON AND TIBC iron 26 ug/dL 38-169 below low normal Not Available [facility] ([facility]) [address] [place], [address], 10/24/2022 08:42:16 10/24/19 23 10/24/2022 IRON AND TIBC iron saturation 8 % 15-55 alert low Not Available [facility] ([facility]) [address] [place], [address], 10/24/2022 08:42:16 10/24/19 23 10/24/2022 STEPHEN TIN ferritin 20 NG/mL 30-400 below low normal Not Available [facility] ([facility]) [address] [place], [address], 10/24/2022 08:42:17 10/24/19 23 10/24/2022 CBC WITH DIFFE RENTI AL/PL ATELE T WBC 5.8 x10e3 /uL 3.4-10 .8 Not Available [facility] ([facility]) [address] [place], [address], 10/24/2022 08:42:17 10/24/19 23 10/24/2022 CBC WITH DIFFE RENTI AL/PL ATELE T RBC 5.66 x10e6 /uL 4.14-5 .80 Not Available [facility] ([facility]) [address] [place], [address], 10/24/2022 08:42:17 10/24/19 23 10/24/2022 CBC WITH DIFFE RENTI AL/PL ATELE T hemoglobin 13.4 g/dL 13.0-1 7.7 Not Available [facility] ([facility]) [address] [place], [address], 10/24/2022 08:42:17 10/24/19 23 10/24/2022 CBC WITH DIFFE RENTI AL/PL ATELE T hematocrit 42.8 % 37.5-5 1.0 Not Available [facility] ([facility]) [address] [place], [address], 10/24/2022 08:42:17 10/24/19 23 10/24/2022 CBC WITH DIFFE RENTI AL/PL ATELE T MCV 76 fL 79-97 below low normal Not Available [facility] ([facility]) [address] [place], [address], 10/24/2022 08:42:17 10/24/19 23 10/24/2022 CBC WITH DIFFE RENTI AL/PL ATELE T MCH 23.7 pg 26.6-3 3.0 below low normal Not Available [facility] ([facility]) [address] [place], [address], 10/24/2022 08:42:17 10/24/19 23 10/24/2022 CBC WITH DIFFE RENTI AL/PL ATELE T MCHC 31.3 g/dL 31.5-3 5.7 below low normal Not Available [facility] ([facility]) [address] [place], [address], 10/24/2022 08:42:17 10/24/19 23 10/24/2022 CBC WITH DIFFE RENTI AL/PL ATELE T RDW 16.6 % 11.6-1 5.4 above high normal Not Available [facility] ([facility]) [address] [place], [address], 10/24/2022 08:42:17 10/24/19 23 10/24/2022 CBC WITH DIFFE RENTI AL/PL ATELE T platelets 250 x10e3 /uL 150-45 0 Not Available [facility] ([facility]) [address], [place], [address], 10/24/2022 08:42:17 10/24/19 23 10/24/2022 CBC WITH DIFFE RENTI AL/PL ATELE T neutrophils 55 % notest ab. Not Available [facility] ([facility]) [address], [place], [address], 10/24/2022 08:42:17 10/24/19 23 10/24/2022 CBC WITH DIFFE RENTI AL/PL ATELE T lymphs 29 % notest ab. Not Available [facility] ([facility]) [address], [place], [address], 10/24/2022 08:42:17 10/24/19 23 10/24/2022 CBC WITH DIFFE RENTI AL/PL ATELE T monocytes 12 % notest ab. Not Available [facility] ([facility]) [address], [place], [address], 10/24/2022 08:42:17 10/24/19 23 10/24/2022 CBC WITH DIFFE RENTI AL/PL ATELE T eos 3 % notest ab. Not Available [facility] ([facility]) [address], [place], [address], 10/24/2022 08:42:17 10/24/19 23 10/24/2022 CBC WITH DIFFE RENTI AL/PL ATELE T basos 1 % notest ab. Not Available [facility] ([facility]) [address], [place], [address], 10/24/2022 08:42:17 10/24/19 23 10/24/2022 CBC WITH DIFFE RENTI AL/PL ATELE T neutrophils (absolute) 3.2 x10e3 /uL 1.4-7. 0 Not Available [facility] ([facility]) [address], [place], [address], 10/24/2022 08:42:17 10/24/19 23 10/24/2022 CBC WITH DIFFE RENTI AL/PL ATELE T lymphs (absolute) 1.7 x10e3 /uL 0.7-3. 1 Not Available [facility] ([facility]) [address], [place], [address], 10/24/2022 08:42:17 10/24/19 23 10/24/2022 CBC WITH DIFFE RENTI AL/PL ATELE T monocytes(ab solute) 0.7 x10e3 /uL 0.1-0. 9 Not Available [facility] ([facility]) [address], [place], [address], 10/24/2022 08:42:17 10/24/19 23 10/24/2022 CBC WITH DIFFE RENTI AL/PL ATELE T eos (absolute) 0.2 x10e3 /uL 0.0-0. 4 Not Available [facility] ([facility]) [address], [place], [address], 10/24/2022 08:42:17 10/24/19 23 10/24/2022 CBC WITH DIFFE RENTI AL/PL ATELE T baso (absolute) 0.1 x10e3 /uL 0.0-0. 2 Not Available [facility] ([facility]) [address], [place], [address], 10/24/2022 08:42:17 10/24/19 23 10/24/2022 CBC WITH DIFFE RENTI AL/PL ATELE T immature granulocytes 0 % notest ab. Not Available [facility] ([facility]) [address], [place], [address], 10/24/2022 08:42:17 10/24/19 23 10/24/2022 CBC WITH DIFFE RENTI AL/PL ATELE T immature grans (abs) 0.0 x10e3 /uL 0.0-0. 1 Not Available [facility] ([facility]) [address], [place], [address], 10/24/2022 08:42:17 10/24/19 23 10/24/2022 PT AND PTT INR 2.1 0.9-1. 2 above high normal Refer ence inter loree is for non-a ntico agula faheem patie nts. Sugge sted INR thera peuti c range for Vitam in K antag onist thera py: Stand bandar Dose (mode rate inten sity thera peuti c range ): 2.0 - 3.0 Highe r inten sity thera peuti c range 2.5 - 3.5 Not Available [facility] ([facility]) [address] [place], [address], 10/24/2022 08:42:18 10/24/19 23 10/24/2022 PT AND PTT prothrombin time 20.7 sec 9.1-12 .0 above high normal Not Available [facility] ([facility]) [address] [place], [address], 10/24/2022 08:42:18 10/24/19 23 10/24/2022 PT AND PTT APTT 34 sec 24-33 above high normal This test has not been valid ated for monit oring unfra ction ated hepar in thera py. aPTT- based thera peuti c range s for unfra ction ated hepar in thera py have not been estab lisgenaro veras. For gener al guide lines on Hepar in monit oring , refer to the [facility] Rodolfo lambert of Amanda riggs. Not Available [facility] ([facility]) [address] [place], [address], 10/24/2022 08:42:18 12/16/19 23 12/16/2022 CBC WITH DIFFE MARTHA AL/PL ATELE T WBC 7.2 x10e3 /uL 3.4-10 .8 Not Available [facility] ([facility]) [address] [place], [address], 12/16/2022 01:07:21 12/16/19 23 12/16/2022 CBC WITH DIFFE RENTI AL/PL ATELE T RBC 5.68 x10e6 /uL 4.14-5 .80 Not Available [facility] ([facility]) [address] [place], [address], 12/16/2022 01:07:21 12/16/19 23 12/16/2022 CBC WITH DIFFE RENTI AL/PL ATELE T hemoglobin 14.4 g/dL 13.0-1 7.7 Not Available [facility] ([facility]) [address] [place], [address], 12/16/2022 01:07:21 12/16/19 23 12/16/2022 CBC WITH DIFFE RENTI AL/PL ATELE T hematocrit 45.3 % 37.5-5 1.0 Not Available [facility] ([facility]) [address] [place], [address], 12/16/2022 01:07:21 12/16/1912/16/2022 CBC WITH DIFFE RENTI AL/PL ATELE T MCV 80 fL 79-97 Not Available [facility] ([facility]) [address] [place], [address], 12/16/2022 01:07:21 12/16/1912/16/2022 CBC WITH DIFFE RENTI AL/PL ATELE T MCH 25.4 pg 26.6-3 3.0 below low normal Not Available [facility] ([facility]) [address] [place], [address], 12/16/2022 01:07:21 12/16/19 23 12/16/2022 CBC WITH DIFFE RENTI AL/PL ATELE T MCHC 31.8 g/dL 31.5-3 5.7 Not Available [facility] ([facility]) [address], [place], [address], 12/16/2022 01:07:21 12/16/19 23 12/16/2022 CBC WITH DIFFE RENTI AL/PL ATELE T RDW 18.3 % 11.6-1 5.4 above high normal Not Available [facility] ([facility]) [address], [place], [address], 12/16/2022 01:07:21 12/16/19 23 12/16/2022 CBC WITH DIFFE RENTI AL/PL ATELE T platelets 211 x10e3 /uL 150-45 0 Not Available [facility] ([facility]) [address], [place], [address], 12/16/2022 01:07:21 12/16/19 23 12/16/2022 CBC WITH DIFFE RENTI AL/PL ATELE T neutrophils 70 % notest ab. Not Available [facility] ([facility]) [address], [place], [address], 12/16/2022 01:07:21 12/16/19 23 12/16/2022 CBC WITH DIFFE RENTI AL/PL ATELE T lymphs 17 % notest ab. Not Available [facility] ([facility]) [address], [place], [address], 12/16/2022 01:07:21 12/16/19 23 12/16/2022 CBC WITH DIFFE RENTI AL/PL ATELE T monocytes 10 % notest ab. Not Available [facility] ([facility]) [address], [place], [address], 12/16/2022 01:07:21 12/16/19 23 12/16/2022 CBC WITH DIFFE RENTI AL/PL ATELE T eos 2 % notest ab. Not Available [facility] ([facility]) [address], [place], [address], 12/16/2022 01:07:21 12/16/19 23 12/16/2022 CBC WITH DIFFE RENTI AL/PL ATELE T basos 1 % notest ab. Not Available [facility] ([facility]) [address], [place], [address], 12/16/2022 01:07:21 12/16/19 23 12/16/2022 CBC WITH DIFFE RENTI AL/PL ATELE T neutrophils (absolute) 5.0 x10e3 /uL 1.4-7. 0 Not Available [facility] ([facility]) [address], [place], [address], 12/16/2022 01:07:21 12/16/19 23 12/16/2022 CBC WITH DIFFE RENTI AL/PL ATELE T lymphs (absolute) 1.2 x10e3 /uL 0.7-3. 1 Not Available [facility] ([facility]) [address], [place], [address], 12/16/2022 01:07:21 12/16/19 23 12/16/2022 CBC WITH DIFFE RENTI AL/PL ATELE T monocytes(ab solute) 0.7 x10e3 /uL 0.1-0. 9 Not Available [facility] ([facility]) [address], [place], [address], 12/16/2022 01:07:21 12/16/19 23 12/16/2022 CBC WITH DIFFE RENTI AL/PL ATELE T eos (absolute) 0.1 x10e3 /uL 0.0-0. 4 Not Available [facility] ([facility]) [address], [place], [address], 12/16/2022 01:07:21 12/16/19 23 12/16/2022 CBC WITH DIFFE RENTI AL/PL ATELE T baso (absolute) 0.1 x10e3 /uL 0.0-0. 2 Not Available [facility] ([facility]) [address] [place], [address], 12/16/2022 01:07:21 12/16/19 23 12/16/2022 CBC WITH DIFFE RENTI AL/PL ATELE T immature granulocytes 0 % notest ab. Not Available [facility] ([facility]) [address] [place], [address], 12/16/2022 01:07:21 12/16/19 23 12/16/2022 CBC WITH DIFFE RENTI AL/PL ATELE T immature grans (abs) 0.0 x10e3 /uL 0.0-0. 1 Not Available [facility] ([facility]) [address], [place], [address], 12/16/2022 01:07:21 12/16/19 23 12/16/2022 IRON AND TIBC iron bind.cap.(TI BC) 327 ug/dL 250-45 0 Not Available [facility] ([facility]) [address] [place], [address], 12/16/2022 03:36:53 12/16/19 23 12/16/2022 IRON AND TIBC UIBC 150 ug/dL 111-34 3 Not Available [facility] ([facility]) [address] [place], [address], 12/16/2022 03:36:53 12/16/19 23 12/16/2022 IRON AND TIBC iron 177 ug/dL 38-169 above high normal Not Available [facility] ([facility]) [address] [place], [address], 12/16/2022 03:36:53 12/16/19 23 12/16/2022 IRON AND TIBC iron saturation 54 % 15-55 Not Available [facility] ([facility]) [address] [place], [address], 12/16/2022 03:36:53 12/16/1912/16/2022 STEPHEN TIN ferritin 33 NG/mL 30-400 Not Available [facility] ([facility]) [address] [place], [address], 12/16/2022 03:36:54 01/07/2001/07/2023 CBC WITH DIFFE RENTI AL/PL ATELE T WBC 6.8 x10e3 /uL 3.4-10 .8 Not Available [facility] ([facility]) [address] [place], [address], 01/07/2023 05:10:29 01/07/2001/07/2023 CBC WITH DIFFE RENTI AL/PL ATELE T RBC 6.02 x10e6 /uL 4.14-5 .80 above high normal Not Available [facility] ([facility]) [address], [place], [address], 01/07/2023 05:10:29 01/07/2001/07/2023 CBC WITH DIFFE RENTI AL/PL ATELE T hemoglobin 15.4 g/dL 13.0-1 7.7 Not Available [facility] ([facility]) [address] [place], [address], 01/07/2023 05:10:29 01/07/2001/07/2023 CBC WITH DIFFE RENTI AL/PL ATELE T hematocrit 48.4 % 37.5-5 1.0 Not Available [facility] ([facility]) [address] [place], [address], 01/07/2023 05:10:29 01/07/2001/07/2023 CBC WITH DIFFE RENTI AL/PL ATELE T MCV 80 fL 79-97 Not Available [facility] ([facility]) [address] [place], [address], 01/07/2023 05:10:29 01/07/20 23 01/07/2023 CBC WITH DIFFE RENTI AL/PL ATELE T MCH 25.6 pg 26.6-3 3.0 below low normal Not Available [facility] ([facility]) [address], [place], [address], 01/07/2023 05:10:29 01/07/20 23 01/07/2023 CBC WITH DIFFE RENTI AL/PL ATELE T MCHC 31.8 g/dL 31.5-3 5.7 Not Available [facility] ([facility]) [address], [place], [address], 01/07/2023 05:10:29 01/07/20 23 01/07/2023 CBC WITH DIFFE RENTI AL/PL ATELE T RDW 17.1 % 11.6-1 5.4 above high normal Not Available [facility] ([facility]) [address], [place], [address], 01/07/2023 05:10:29 01/07/20 23 01/07/2023 CBC WITH DIFFE RENTI AL/PL ATELE T platelets 208 x10e3 /uL 150-45 0 Not Available [facility] ([facility]) [address], [place], [address], 01/07/2023 05:10:29 01/07/2001/07/2023 CBC WITH DIFFE RENTI AL/PL ATELE T neutrophils 59 % notest ab. Not Available [facility] ([facility]) [address] [place], [address], 01/07/2023 05:10:29 01/07/20 23 01/07/2023 CBC WITH DIFFE RENTI AL/PL ATELE T lymphs 28 % notest ab. Not Available [facility] ([facility]) [address] [place], [address], 01/07/2023 05:10:29 01/07/20 23 01/07/2023 CBC WITH DIFFE RENTI AL/PL ATELE T monocytes 10 % notest ab. Not Available [facility] ([facility]) [address], [place], [address], 01/07/2023 05:10:29 01/07/20 23 01/07/2023 CBC WITH DIFFE RENTI AL/PL ATELE T eos 2 % notest ab. Not Available [facility] ([facility]) [address], [place], [address], 01/07/2023 05:10:29 01/07/2001/07/2023 CBC WITH DIFFE RENTI AL/PL ATELE T basos 1 % notest ab. Not Available [facility] ([facility]) [address], [place], [address], 01/07/2023 05:10:29 01/07/2001/07/2023 CBC WITH DIFFE RENTI AL/PL ATELE T neutrophils (absolute) 4.0 x10e3 /uL 1.4-7. 0 Not Available [facility] ([facility]) [address], [place], [address], 01/07/2023 05:10:29 01/07/2001/07/2023 CBC WITH DIFFE RENTI AL/PL ATELE T lymphs (absolute) 1.9 x10e3 /uL 0.7-3. 1 Not Available [facility] ([facility]) [address], [place], [address], 01/07/2023 05:10:29 01/07/2001/07/2023 CBC WITH DIFFE RENTI AL/PL ATELE T monocytes(ab solute) 0.7 x10e3 /uL 0.1-0. 9 Not Available [facility] ([facility]) [address], [place], [address], 01/07/2023 05:10:29 01/07/20 23 01/07/2023 CBC WITH DIFFE RENTI AL/PL ATELE T eos (absolute) 0.1 x10e3 /uL 0.0-0. 4 Not Available [facility] ([facility]) [address], [place], [address], 01/07/2023 05:10:29 01/07/20 23 01/07/2023 CBC WITH DIFFE RENTI AL/PL ATELE T baso (absolute) 0.1 x10e3 /uL 0.0-0. 2 Not Available [facility] ([facility]) [address], [place], [address], 01/07/2023 05:10:29 01/07/20 23 01/07/2023 CBC WITH DIFFE RENTI AL/PL ATELE T immature granulocytes 0 % notest ab. Not Available [facility] ([facility]) [address], [place], [address], 01/07/2023 05:10:29 01/07/20 23 01/07/2023 CBC WITH DIFFE RENTI AL/PL ATELE T immature grans (abs) 0.0 x10e3 /uL 0.0-0. 1 Not Available [facility] ([facility]) [address], [place], [address], 01/07/2023 05:10:29 05/12/19 24 05/12/2023 LIPID PANEL cholesterol, total 183 mg/dL 100-19 9 Not Available [facility] [address] [place], [address], 05/12/2023 20:08:44 05/12/19 24 05/12/2023 LIPID PANEL triglyceride s 70 mg/dL 0-149 Not Available [facility] [address] [place], [address], 05/12/2023 20:08:44 05/12/19 24 05/12/2023 LIPID PANEL HDL cholesterol 44 mg/dL 40-999 Not Available [facility] Department [address] [place] [address], [address], 05/12/2023 20:08:44 05/12/19 24 05/12/2023 LIPID PANEL VLDL cholesterol chai 14 mg/dL 5-40 Not Available [facility] [address] [place] [address], [address], 05/12/2023 20:08:44 05/12/19 24 05/12/2023 LIPID PANEL LDL chol calc (nih) 135 mg/dL 0-99 above high normal Not Available [facility] Department [address] [place] [address], [address], 05/12/2023 20:08:44 05/12/19 24 05/12/2023 COMP. METAB OLIC PANEL (14) glucose 92 mg/dL 70-99 Not Available [facility] [address] [place] [address], [address], 05/12/2023 20:08:45 05/12/19 24 05/12/2023 COMP. METAB OLIC PANEL (14) BUN 22 mg/dL 6-24 Not Available [facility] Department [address] [place] [address], [address], 05/12/2023 20:08:45 05/12/19 24 05/12/2023 COMP. METAB OLIC PANEL (14) creatinine 1.53 mg/dL 0.76-1 .27 above high normal Not Available [facility] [address] [place] [address], [address], 05/12/2023 20:08:45 05/12/19 24 05/12/2023 COMP. METAB OLIC PANEL (14) eGFR 53 >=60 below low normal Units for eGFR value s are mL/mi n/1.7 3 The eGFR Calcu latio n has not been valid ated for patie nts under the age of 18. If test resul ts are displ ayed for a patie nt under the age of 18, disre andi that value . Not Available [facility] [address] [place] [address], [address], 05/12/2023 20:08:45 05/12/19 24 05/12/2023 COMP. METAB OLIC PANEL (14) BUN/creatini ne ratio 14 9-20 Not Available [facility] Department [address] [place] [address], [address], 05/12/2023 20:08:45 05/12/19 24 05/12/2023 COMP. METAB OLIC PANEL (14) sodium 140 mmol/ L 134-14 4 Not Available [facility] [address] [place] [address], [address], 05/12/2023 20:08:45 05/12/19 24 05/12/2023 COMP. METAB OLIC PANEL (14) potassium 4.0 mmol/ L 3.5-5. 2 Not Available [facility] [address] [place] [address], [address], 05/12/2023 20:08:45 05/12/19 24 05/12/2023 COMP. METAB OLIC PANEL (14) chloride 101 mmol/ L 96-106 Not Available [facility] [address] [place] [address], [address], 05/12/2023 20:08:45 05/12/19 24 05/12/2023 COMP. METAB OLIC PANEL (14) carbon dioxide, total 28 mmol/ L 20-29 Not Available [facility] [address] [place] [address], [address], 05/12/2023 20:08:45 05/12/19 24 05/12/2023 COMP. METAB OLIC PANEL (14) calcium 9.5 mg/dL 8.7-10 .2 Not Available [facility] [address] [place] [address], [address], 05/12/2023 20:08:45 05/12/19 24 05/12/2023 COMP. METAB OLIC PANEL (14) protein, total 7.6 g/dL 6.0-8. 5 Not Available [facility] [address] [place] [address], [address], 05/12/2023 20:08:45 05/12/19 24 05/12/2023 COMP. METAB OLIC PANEL (14) albumin 4.3 g/dL 3.8-4. 9 Not Available [facility] [address] [place] [address], [address], 05/12/2023 20:08:45 05/12/19 24 05/12/2023 COMP. METAB OLIC PANEL (14) globulin, total 3.3 g/dL 1.5-4. 5 Not Available [facility] [address] [place] [address], [address], 05/12/2023 20:08:45 05/12/19 24 05/12/2023 COMP. METAB OLIC PANEL (14) A/G ratio 1.3 1.2-2. 2 Not Available [facility] [address] [place] [address], [address], 05/12/2023 20:08:45 05/12/19 24 05/12/2023 COMP. METAB OLIC PANEL (14) bilirubin, total 0.7 mg/dL 0.0-1. 2 Not Available [facility] [address] [place] [address], [address], 05/12/2023 20:08:45 05/12/19 24 05/12/2023 COMP. METAB OLIC PANEL (14) alkaline phosphatase 111 IU/L 44-121 Not Available [facility] Department [address] [place], [address], 05/12/2023 20:08:45 05/12/19 24 05/12/2023 COMP. METAB OLIC PANEL (14) AST (SGOT) 15 IU/L 0-40 Not Available [facility] Department [address] [place], [address], 05/12/2023 20:08:45 05/12/19 24 05/12/2023 COMP. METAB OLIC PANEL (14) ALT (SGPT) 10 IU/L 0-44 Not Available [facility] Department [address] [place], [address], 05/12/2023 20:08:45 05/12/19 24 05/12/2023 CBC WITH DIFFE RENTI AL/PL ATELE T WBC 8.5 x10e3 /uL 3.4-10 .8 Not Available [facility] [address] [place], [address], 05/12/2023 20:08:45 05/12/19 24 05/12/2023 CBC WITH DIFFE RENTI AL/PL ATELE T RBC 6.55 x10e6 /uL 4.14-5 .80 above high normal Not Available [facility] [address] [place], [address], 05/12/2023 20:08:45 05/12/19 24 05/12/2023 CBC WITH DIFFE RENTI AL/PL ATELE T hemoglobin 17.1 g/dL 13.0-1 7.7 Not Available [facility] [address] [place], [address], 05/12/2023 20:08:45 05/12/19 24 05/12/2023 CBC WITH DIFFE RENTI AL/PL ATELE T hematocrit 53.7 % 37.5-5 1.0 above high normal Not Available [facility] [address] [place], [address], 05/12/2023 20:08:45 05/12/19 24 05/12/2023 CBC WITH DIFFE RENTI AL/PL ATELE T MCV 82 fL 79-97 Not Available [facility] [address] [place], [address], 05/12/2023 20:08:45 05/12/19 24 05/12/2023 CBC WITH DIFFE RENTI AL/PL ATELE T MCH 26.1 pg 26.6-3 3.0 below low normal Not Available [facility] [address] [place], [address], 05/12/2023 20:08:45 05/12/19 24 05/12/2023 CBC WITH DIFFE RENTI AL/PL ATELE T MCHC 31.8 g/dL 31.5-3 5.7 Not Available [facility] [address] [place], [address], 05/12/2023 20:08:45 05/12/19 24 05/12/2023 CBC WITH DIFFE RENTI AL/PL ATELE T RDW 13.5 % 11.5-1 4.5 Not Available [facility] [address] [place], [address], 05/12/2023 20:08:45 05/12/19 24 05/12/2023 CBC WITH DIFFE RENTI AL/PL ATELE T platelets 210 x10e3 /uL 150-45 0 Not Available [facility] [address] [place], [address], 05/12/2023 20:08:45 05/12/19 24 05/12/2023 CBC WITH DIFFE RENTI AL/PL ATELE T neutrophils 69 % notest b. Not Available [facility] [address] [place], [address], 05/12/2023 20:08:45 05/12/19 24 05/12/2023 CBC WITH DIFFE RENTI AL/PL ATELE T lymphs 20 % notest b. Not Available [facility] [address] [place], [address], 05/12/2023 20:08:45 05/12/19 24 05/12/2023 CBC WITH DIFFE RENTI AL/PL ATELE T monocytes 9 % notest b. Not Available [facility] [address] [place], [address], 05/12/2023 20:08:45 05/12/19 24 05/12/2023 CBC WITH DIFFE RENTI AL/PL ATELE T eos 2 % notest b. Not Available [facility] [address] [place], [address], 05/12/2023 20:08:45 05/12/19 24 05/12/2023 CBC WITH DIFFE RENTI AL/PL ATELE T basos 1 % notest b. Not Available [facility] [address] [place] [address], [address], 05/12/2023 20:08:45 05/12/19 24 05/12/2023 CBC WITH DIFFE RENTI AL/PL ATELE T neutrophils (absolute) 5.8 x10e3 /uL 1.4-7. 0 Not Available [facility] [address] [place] [address], [address], 05/12/2023 20:08:45 05/12/19 24 05/12/2023 CBC WITH DIFFE RENTI AL/PL ATELE T lymphs (absolute) 1.7 x10e3 /uL 0.7-3. 1 Not Available [facility] [address] [place] [address], [address], 05/12/2023 20:08:45 05/12/19 24 05/12/2023 CBC WITH DIFFE RENTI AL/PL ATELE T monocytes(ab solute) 0.8 x10e3 /uL 0.1-0. 9 Not Available [facility] [address] [place], [address], 05/12/2023 20:08:45 05/12/19 24 05/12/2023 CBC WITH DIFFE RENTI AL/PL ATELE T eos (absolute) 0.1 x10e3 /uL 0.0-0. 4 Not Available [facility] [address] [place] [address], [address], 05/12/2023 20:08:45 05/12/19 24 05/12/2023 CBC WITH DIFFE RENTI AL/PL ATELE T baso (absolute) 0.1 x10e3 /uL 0.0-0. 2 Not Available [facility] [address] [place] [address], [address], 05/12/2023 20:08:45 05/12/19 24 05/12/2023 CBC WITH DIFFE RENTI AL/PL ATELE T immature granulocytes 0.4 % notest b. Not Available [facility] [address] [place] [address], [address], 05/12/2023 20:08:45 05/12/19 24 05/12/2023 CBC WITH DIFFE RENTI AL/PL ATELE T immature grans (abs) 0.0 x10e3 /uL 0.0-0. 1 Not Available [facility] [address] [place] [address], [address], 05/12/2023 20:08:45 05/12/19 24 05/12/2023 CBC WITH DIFFE RENTI AL/PL ATELE T NRBC 0 % 0-0 Not Available [facility] [address] [place] [address], [address], 05/12/2023 20:08:45 05/12/19 24 05/13/2023 TSH+F REE T4 TSH 1.100 uIU/m L 0.450- 4.500 Not Available [facility] ([facility]) [address] [place], [address], 05/13/2023 08:26:35 05/12/19 24 05/13/2023 TSH+F REE T4 T4,free(dire ct) 1.25 NG/dL 0.82-1 .77 Not Available [facility] ([facility]) [address] [place], [address], 05/13/2023 08:26:35 05/12/19 24 05/13/2023 IRON AND TIBC iron bind.cap.(TI BC) 355 ug/dL 250-45 0 Not Available [facility] ([facility]) [address] [place], [address], 05/13/2023 08:26:35 05/12/19 24 05/13/2023 IRON AND TIBC UIBC 310 ug/dL 111-34 3 Not Available [facility] ([facility]) [address] [place], [address], 05/13/2023 08:26:35 05/12/19 24 05/13/2023 IRON AND TIBC iron 45 ug/dL 38-169 Not Available [facility] ([facility]) [address] [place], [address], 05/13/2023 08:26:35 05/12/19 24 05/13/2023 IRON AND TIBC iron saturation 13 % 15-55 below low normal Not Available [facility] ([facility]) [address] [place], [address], 05/13/2023 08:26:35 05/12/19 24 05/13/2023 HEMOG LOBIN A1C hemoglobin A1C 5.5 % 4.8-5. 6 Predi abete s: 5.7 - 6.4 Diabe devin: >6.4 Glyce anival contr ol for adult s with diabe devin: <7.0 Not Available [facility] ([facility]) [address] [place], [address], 05/13/2023 08:26:36 05/12/19 24 05/13/2023 STEPHEN TIN ferritin 27 NG/mL 30-400 below low normal Not Available [facility] ([facility]) [address] [place], [address], 05/13/2023 08:26:37 05/12/19 24 05/13/2023 PROST ATE-S PECIF IC AG prostate specific Ag 0.5 NG/mL 0.0-4. 0 [place] ECLIA metho dolog y. Accor ding to the Ameri can [employer] g[employer] iatio n, Serum PSA shoul d decre ase and remai n at undet ectab le level s after radic al prost atect maite. The AUA defin es bioch emica l recur rence as an initi al PSA value 0.2 ng/mL or great er follo wed by a subse quent confi rmato ry PSA value 0.2 ng/mL or great er. Value s obtai nadine with diffe rent assay metho ds or kits canno t be used inter [place] eably . Resul ts canno t be inter prete d as absol [place] evide nce of the prese nce or absen ce of zaid [place] se. Not Available [facility] ([facility]) [address], [place], [address], 05/13/2023 08:26:37 07/21/19 23 07/16/2022 US, echoc ardio gram No observ ation record ed. [email or web address] [id number] [facility] [address] [place], [address], 07/20/2022 16:17:38 06/28/19 24 06/28/2023 US, echoc ardio gram No observ ation record ed. [address] [facility] [address], [place], [address], 06/28/2023 14:01:01 Result Notes None recorded. 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 4423446680945 03 Active 2021 Not Available [facility] 4 19:36:33 Hypertensi ve urgency 832939042 Active 2021 Not Available [facility] 4 19:36:33 Essential hypertensi on 72845048 Active 2021 Not Available [facility] 4 19:36:33 Aortic aneurysm 88949481 Active 2021 Not Available [facility] 4 19:36:33 Prediabete s 399460275 Active 2021 Not Available [facility] 4 19:36:33 Cardiovasc ular stress test abnormal 777981426 Active 2021 Not Available [facility] 4 19:36:33 Chronic kidney disease 866217210 Active 2021 Not Available [facility] 4 19:36:33 Warfarin monitoring status 129448433 Active 2022 Not Available [facility] 4 19:36:33 Hospital inpatient stay within past 30 days 3298731415914 Active 2022 Not Available [facility] 4 19:36:33 Spinal stenosis in cervical region with myelopathy 0162781065521 Active 2022 Not Available [facility] 4 19:36:33 Neuropathy 940227295 Active 2022 Not Available [facility] 4 19:36:33 Basal cell carcinoma of skin 200029435 Active 2022 Not Available [facility] 4 19:36:33 Iron deficiency anemia 39515281 Active 2023 Not Available [facility] 4 19:36:33 Benign hypertensi on 46046310 Active Not Available [facility] 4 19:36:33 Disorder of lipid metabolism 978723253 Active Not Available [facility] 4 19:36:33 Chronic hepatitis C 580598621 Active Not Available [facility] 4 19:36:33 Impotence Active Not Available [facility] 4 19:36:33 Overweight 377526352 Active Not Available [facility] 4 19:36:33 Heart irregular Active Not Available [facility] 4 19:36:33 Problem Notes None recorded. Procedures Surgical History Date Name Laterality Status Provider Name and Address Organization Details Recorded Time 0 Hip Surgery completed Karla Bullard MA [facility] 02/07/2020 11:39:35 Heart Surgery completed Diana Anaya MD Attn: Accounting,[address] [facility], [place], [address], [facility] 09/19/2015 11:29:54 Knee Surgery completed Diana Anaya MD Attn: Accounting,[address] [facility], [place], [address], [facility] 09/19/2015 12:04:54 Imaging Results Imaging Date Name Status LastModified by Organization Details LastModified Time 07/16/2022 US, echocardiogram completed [address] Thoracic Surgery ([employer]) [address] [place] [address], [address], 07/20/2022 16:17:38 06/28/2023 US, echocardiogram completed [address], [place], [address], 06/28/2023 14:01:01 Procedure Notes None recorded. Medical Equipment None Reported. Allergies No known drug allergies Medications Name Sig Start Date Stop Date Status Note LastModified by Organization Details LastModified Time celecoxib 200 mg capsule 12/22 completed Not Available Not Available Not Available cyclobenz aprine 10 mg tablet 10/23 completed Not Available Not Available Not Available furosemid e 40 mg tablet TAKE 1 TABLET BY MOUTH DAILY 10/23 completed Not Available Not Available Not Available atorvasta tin 40 mg tablet Take 1 tablet every day by oral route at bedtime for 90 days. 10/23 completed taken off by cardiolo gy Not Available Not Available Not Available carvedilo l 25 mg tablet TAKE 1 TABLET TWICE A DAY BY ORAL ROUTE FOR 90 DAYS. active Not Available Not Available No t Available carvedilo l 6.25 mg tablet 04/30 completed Not Available Not Available Not Available carvedilo l 12.5 mg tablet TAKE 3 TABLETS BY MOUTH TWICE DAILY WITH MEALS 07/07 completed Not Available Not Available Not Available atorvasta tin 10 mg tablet 04/30 completed Not Available Not Available Not Available lisinopri l 20 mg-hydroc hlorothia zide 12.5 mg tablet Take 2 tablets every day by oral route for 90 days. 07/07 completed Not Available Not Available Not Available azithromy shereen 250 mg tablet TAKE 2 TABLETS (500 MG) BY ORAL ROUTE ONCE DAILY FOR 1 DAY THEN 1 TABLET (250 MG) BY ORAL ROUTE ONCE DAILY FOR 4 DAYS 05/05 completed Not Available Not Available Not Available amiodaron e 200 mg tablet Take 1 tablet every day by oral route. 05/12 completed Not Available Not Available Not Available hydrocodo ne 5 mg-acetam inophen 325 mg tablet 02/21 completed Not Available Not Available Not Available senna 8.6 mg tablet 12/22 completed Not Available Not Available Not Available meloxicam 15 mg tablet Take 1 tablet every day by oral route. 05/01 completed Not Available Not Available Not Available cefepime 2 gram solution for injection 10/23 completed Not Available Not Available Not Available lisinopri l 20 mg tablet 04/30 completed Not Available Not Available Not Available amlodipin e 5 mg tablet TAKE ONE TABLET BY MOUTH DAILY active Not Available Not Available No t Available ciproflox acin 500 mg tablet 05/12 completed Not Available Not Available Not Available tramadol 50 mg tablet Take 1 tablet 3 times a day by oral route as needed for 30 days. 10/23 completed Not Available Not Available Not Available warfarin 4 mg tablet TAKE TWO TABLETS FOR FIVE DAYS of the week DIRECTED (total daily dose will be 8 mg FOR the five DAYS of the week) 05/12 completed Not Available Not Available Not Available oxycodone -acetamin ophen 5 mg-325 mg tablet 05/05 completed Not Available Not Available Not Available Tessalon Perles 100 mg capsule Take 1 capsule 3 times a day by oral route as directed for 7 days. 05/05 completed Not Available Not Available Not Available citalopra m 20 mg tablet 12/22 completed Not Available Not Available Not Available potassium chloride ER 20 mEq tablet,ex tended release(p art/cryst ) TAKE 1 TABLET BY MOUTH DAILY 12/22 completed Not Available Not Available Not Available aspirin 325 mg tablet,de layed release 07/07 completed Not Available Not Available Not Available amlodipin e 10 mg tablet TAKE ONE TABLET BY MOUTH EVERY DAY 07/07 completed Not Available Not Available Not Available pantopraz ole 40 mg tablet,de layed release TAKE 1 TABLET BY MOUTH BEFORE BREAKFAS T 12/22 completed Not Available Not Available Not Available neomycin- polymyxin -dexameth 3.5 mg/mL-10, 000 unit/mL-0 .1% eye drops 05/05 completed Not Available Not Available Not Available warfarin 5 mg tablet take two tablets on two days of the week 05/12 completed Not Available Not Available Not Available lisinopri l 20 mg-hydroc hlorothia zide 25 mg tablet Take 1 tablet every day by oral route for 30 days. 02/17 completed Not Available Not Available Not Available hydrochlo rothiazid e 25 mg tablet Take 1 tablet every day by oral route. 07/07 completed Not Available Not Available Not Available Viagra 100 mg tablet TAKE 1 TABLET BY ORAL ROUTE NEEDED. 12/23 completed Not Available Not Available Not Available morphine 15 mg immediate release tablet 04/30 completed Not Available Not Available Not Available amoxicill in 875 mg-potass ium clavulana te 125 mg tablet Take 1 tablet every 12 hours by oral route. 02/21 completed Not Available Not Available Not Available aspirin 81mg po daily 05/12 completed Not Available Not Available Not Available FeroSul 325 mg (65 mg iron) tablet TAKE 1 TABLET EVERY DAY BY ORAL ROUTE FOR 30 DAYS. 12/22 completed Not Available Not Available Not Available Mavyret 100 mg-40 mg tablet TAKE 3 TABLETS BY MOUTH ONCE DAILY FOR 8 WEEKS 10/23 completed Not Available Not Available Not Available Vitals Date Recorded Body height Body mass index (BMI) Body weight Heart rate Body temperature Respiratory rate Oxygen saturation Oxygen saturation in Arterial blood by Pulse oximetry Systolic blood pressure Diastolic blood pressure Provider Name and Address Organization Details Last Updated DateTime 3 187.96 cm 30.8 kg/m2 344557. 52 g 78 /min 98 [degF] 18 /min 94 % 94 % 144 mm[Hg] 79 mm[Hg] Eleni Underwood [place] [facility] 3 10:57:18 Date Recorded Body height Body mass index (BMI) Body weight Heart rate Oxygen saturation Oxygen saturation in Arterial blood by Pulse oximetry Provider Name and Address Organization Details Last Updated DateTime 3 187.96 cm 30.7 kg/m2 552162. 58 g 74 /min 94 % 94 % Sophy Knight [place] [facility] 3 12:19:35 Date Recorded Systolic blood pressure Diastolic blood pressure Provider Name and Address Organization Details Last Updated DateTime 10/23/2022 126 mm[Hg] 80 mm[Hg] GT DURBIN Attn: Accounting,[address] [place], [address], [facility] 10/28/2022 08:38:28 Date Recorded Body height Body mass index (BMI) Body weight Heart rate Oxygen saturation Oxygen saturation in Arterial blood by Pulse oximetry Provider Name and Address Organization Details Last Updated DateTime 3 187.96 cm 31.3 kg/m2 719696. 54 g 82 /min 95 % 95 % Sophy Knight [place] [facility] 3 10:06:08 Date Recorded Systolic blood pressure Diastolic blood pressure Provider Name and Address Organization Details Last Updated DateTime 12/22/2022 142 mm[Hg] 90 mm[Hg] GT DURBIN Attn: Accounting[address] [place], [address], [facility] 12/22/2022 10:25:59 Date Recorded Body height Body mass index (BMI) Body weight Heart rate Oxygen saturation Oxygen saturation in Arterial blood by Pulse oximetry Provider Name and Address Organization Details Last Updated DateTime 4 187.96 cm 31.7 kg/m2 746830. 32 g 91 /min 100 % 100 % Sophy Knight [place] - [facility] 4 10:41:31 Date Recorded Systolic blood pressure Diastolic blood pressure Provider Name and Address Organization Details Last Updated DateTime 05/12/2023 138 mm[Hg] 88 mm[Hg] GT DURBIN Attn: Accounting[address] [facility], [place], [address], [facility] 05/13/2023 08:12:32 Date Recorded Body height Body mass index (BMI) Body weight Heart rate Oxygen saturation Oxygen saturation in Arterial blood by Pulse oximetry Respiratory rate Systolic blood pressure Diastolic blood pressure Provider Name and Address Organization Details Last Updated DateTime 4 187.96 cm 31.5 kg/m2 223659. 13 g 76 /min 99 % 99 % 16 /min 140 mm[Hg] 100 mm[Hg] Quita Fabian [place] [facility] 4 11:26:07 Social History Question Answer Notes LastModified by Organizat ion Details LastModified Time Tobacco Smoking Status Never Smoker Raquel Kulkarni MA null, [place] [facility] 09/19/2015 11:26:23 What Is Your Level Of Alcohol Consumption? None Information not available 03/13/2020 What Is Your Level Of Caffeine Consumption? Occasional Information not available 03/13/2020 How Much Tobacco Do You Chew? None Information not available 03/13/2020 In The 14 Days Before Symptom Onset, Have You Had Close Contact With A Laboratory-confir med COVID-19 While That Case Was Ill? No Information not available 02/21/2021 In The 14 Days Before Symptom Onset, Have You Had Close Contact With A Person Who Is Under Investigation For COVID-19 While That Person Was Ill? No Information not available 02/21/2021 Have You Been To An Area Known To Be High Risk For COVID-19? No Information not available 02/21/2021 Which Illicit Or Recreational Drugs Have You Used? None Information not available 03/13/2020 Do You Or Have You Ever Used E-cigarettes Or Vape? Never Used Electronic Cigarettes Information not available 05/01/2019 What Was The Date Of Your Most Recent Tobacco Screening? 09/13/2023 [email or web address] Information not available 09/13/2023 Do You Or Have You Ever Used Smokeless Tobacco? Never Used Smokeless Tobacco Information not available 05/01/2019 How Much Tobacco Do You Smoke? No Information not available 05/01/2019 Has Tobacco Cessation Counseling Been Provided? Yes Information not available 02/21/2021 On What Date Was Tobacco Cessation Counseling Provided? 12/22/2021 Information not available 12/22/2021 How Many Years Have You Smoked Tobacco? 0 Information not available 05/01/2019 Sex: Male Functional Status None recorded. Mental Status None recorded. Family History Nothing Reported. Medical History Condition Response Coronary Artery Disease N Other N High Blood Pressure Y Atrial Fibrillation N Kidney or Bladder Problems N Thyroid Problems N GI Problems N Depression N COPD N Blood Clots N Skin Problems N Eating Disorder N Anemia N Heart Attack (PA) N Anxiety Disorder N Diabetes N Muscle, Joint, or Bone Problems N Seizures/Epilepsy N Acid Reflux (GERD) N Cancer N Stroke N Asthma N Allergies N ADHD N Substance Abuse N High Cholesterol Y Hepatitis Y Liver Disease N Schizophrenia N Headaches N Osteoporosis N Heart Failure N Immunizations Vaccine Type Date Status Note Provider Nam e and Address Organization Details Recorded Time COVID-19, mRNA, LNP-S, PF, 100 mcg/0.5mL dose or 50 mcg/0.25mL dose 10/30/2020 completed Not Available [facility] 4 19:36:33 Past Encounters Encounter ID Performer Location Encounter Start Date Encounter Closed Date Diagnosis/Indication Diagnosis SNOMED-CT Code Diagnosis ICD10 Code Diagnosis Note [id number] Diana Anaya MD [facility] (Adult Med) [address] [place] [address] 09/19/2015 11:16:11 09/19/2015 12:21:31 General examination of patient 735047474 Z00.01 49 y/o WM who presents to this office as a new patient, his PMHx was not significan t prior to May 02, 2015 when he presented to where he was diagnosed with an aortic dissection and transferre d to [place] where he had surgery by Dr. Celaya. PMHX also includes HTN, Chronic Hepatitis C, Hyperlipid emia and ED. His old records will be useful. Benign hypertension 1072 5009 I10 Disorder o f lipid metabolism 008258191 E78.9 His Lipitor was discontinu ed due to myopathy that has not resolved. Chronic hepatitis C 1283 51155 B18.2 He was seen at the ID clinic at [facility] and the plan was to start Harvoni which was denied by his insurance company. His fiancee who is here with him today has contacted Dr. Sierra's office, they accept his insurance and they will be pleased to see him on consultati on. Impotence 752100731 N52. 9 He has used Viagra in the past, the side effects were discussed in detail. Screening for malignant neoplasm of colon 389351418 Z12.11 Discussed Screening for malignant neoplasm of prostate 968473980 Z12.5 Discussed Overweight 427675733 E66 .3 Heart irregular 46279176 6 I49.9 This was noted on his last [id number] MD Alisha White (Adult Med) [address] [place] [address] 04/30/2016 15:48:30 04/30/2016 18:03:10 Acute bronchitis 75563077 J20.9 Impotence 793161380 N52. 9 [id number] [facility] [address] [place] [address] 05/05/2017 11:31:31 05/06/2017 10:22:26 Knee pain 33269268 M25.561 X-ray right knee. Start PT. Discussed conservati ve tx- RICE. F/u 1 month or prn Impotence 062030416 N52. 9 Refill viagra. [id number] KYLE Urias NP [facility] [address] [place] [address] 03/18/2018 16:43:14 03/18/2018 17:47:03 Impotence 190225626 N52.9 -Renew Viagra Essential hypertension 79360962 I10 -BP 160/120 today-Rest art medication s-Obtain labs-F/u 1 month [id number] KYLE Urias NP [facility] [address] [place] [address] 03/30/2018 16:51:32 04/04/2018 12:33:19 Arthritis of knee 383272525 M13.869 -Continue conservati ve tx- RICE-Trama dol prn-F/u prn-Get health insurance Essential hypertension 90398542 I10 -Renew carvedilol [id number] Krissy Livingston MD 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 Hyperlipid emia screening 718028116 Z13.730 [id number] Krissy Livingston MD [facility] [address] [place] [address] 05/01/2019 10:22:50 05/09/2019 09:44:25 History of hepatitis C 1188093715 9101 Z86.19 Pain in left knee 842518 7674 [address] frequently . Impotence 030135609 N52. 9 discussed how to use the viagra most effectivel y. Depression screening 171 925272 Z13.31 will monitor and consider adding an antidepres eliseo. [id number] Krissy Livingston MD [facility] [address] [place] [address] 03/13/2020 16:15:10 03/25/2020 09:18:18 Essential hypertension 63702118 I10 Patient advised to limit salt and caffeine intake to maintain good blood pressure. Complainin g of erectile dysfunction 860769470 N52.9 medication s for blood pressure probably are aggravatin g the problem, but are necessary. Pain in ri ght hip joint 5588426425 37700 M25.551 Patient will keep me notified about his hip and how the surgery goes. [id number] GT DURBIN [facility] [address] [place] [address] 02/21/2021 14:56:54 03/04/2021 07:40:40 Essential hypertension 08540719 I10 Patient had been out of BP medication . It is elevated today. Will have him f/u wednesday for b/p check. Patient advised to limit salt and caffeine intake to maintain good blood pressure. Advised to check BP regularly with a goal of <140/90, if BP consistent ly >140/90, advised to contact clinic Discussed DASH diet Advised weight loss and diet is best way to control BP Advised 30 minutes of exercise minimum daily Advised tobacco, alcohol, caffeine all increase BP Advised goal for BP is <140/90 Complainin g of erectile dysfunction 808498292 N52.[id number] [facility] [address] [place] [address] 12/19/2021 09:48:48 12/24/2021 11:07:34 Adult health examination 730640233 Z00.[id number] [facility] [address] [place] [address] 12/22/2021 12:18:22 12/23/2021 10:32:35 Screening for malignant neoplasm of colon 766209335 Z12.11 declines colonoscop y. agrees to cologuard Hypertensive urgency 443 554086 I16.0 - only taking carvediolo l at this time. non-compla int with f/u visits or BP checks.- sent to ER due to uncontroll ed htn, new onset headache, hx dissection , irregular beats and fatigue. taking him to [facility] ER. 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 Celaya. CTA 2019: in comparison to 2014 (measuring 4.8 cm) the CTA done 2019 shows fusiform aneurysm of ascending aorta measuring 5.8cm at level of mail pulm artery, enlarged since the comparison exam - was seen Dr Tuttle, will send referral back Chronic hepatitis C 1283 84846 B18.2 hep C checked 2019he c quant 96325, hcv log10 4.755, genotype 1B Basal cell carcinoma of skin 194353305 C44.91 non healing lesion on right arm (near antecubita l fossal) that is purple and pearly, irregular border with central ulceration Sleep apnea 11487024 G47 .30 snoring, hypertensi ve, obese, fatigue. - sleep study Obesity 742901943 E66.9 bmi 31.4 - DICUSSED DASH DIET- he denies alcohol or smoking hx- increase veggies and whole grains Aortic aneurysm 17400488 I71.9 in comparison to 2014 (measuring 4.8 cm) the CTA done 2019 shows fusiform aneurysm of ascending aorta measuring 5.8cm at level of mail pulm artery, enlarged since the comparison exam Cardiovasc ular stress test abnormal 397517274 R94.39 lexiscan cardiolite stress test 2019 shows no ischemia but a left ventricula r ejection fraction of 42% Prediabetes 254881930 R7 3.03 5.7 12/2021- discussed diet- discsused staying active Chronic ki dney disease 759835406 N18.9 GFR AND CR at baseline since 2018 2021: cr 1.60 GFR 244248: cr 1.52 GFR 51 [id number] GT DURBIN [facility] [address] [place] [address] 01/05/2022 11:01:22 01/06/2022 11:30:43 Hypertensive urgency 310001522 I16.0 - taking carvedilol and lisinopril 20-25. BP elevated at home. will double up on medication and f/u for bp check. needs to see cardiology . today denies cp, sob, palpitatio ns. 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 Celaya. CTA 2019: in comparison to 2014 (measuring 4.8 cm) the CTA done 2019 shows fusiform aneurysm of ascending aorta measuring 5.8cm at level of mail pulm artery, enlarged since the comparison exam - was seen Dr Tuttle, will send referral back Chronic hepatitis C 1283 86533 B18.2 hep C checked 2019hep c quant 46854, hcv log10 4.755, genotype 1B Basal cell carcinoma of skin 495644334 C44.91 non healing lesion on right arm (near antecubita l fossal) that is purple and pearly, irregular border with central ulceration Sleep apnea 57302159 G47 .30 snoring, hypertensi ve, obese, fatigue. - sleep study Obesity 691320421 E66.9 bmi 31.4 - DICUSSED DASH DIET- he denies alcohol or smoking hx- increase veggies and whole grains Aortic aneurysm 93035952 I71.9 in comparison to 2014 (measuring 4.8 cm) the CTA done 2019 shows fusiform aneurysm of ascending aorta measuring 5.8cm at level of mail pulm artery, enlarged since the comparison exam Cardiovasc ular stress test abnormal 774719883 R94.39 lexiscan cardiolite stress test 2019 shows no ischemia but a left ventricula r ejection fraction of 42% Prediabetes 490220563 R7 3.03 5.7 12/2021- discussed diet- discsused staying active Chronic ki dney disease 210864903 N18.9 GFR AND CR at baseline since 2018 2021: cr 1.60 GFR 567699: cr 1.52 GFR 51 Essential hypertension 27219397 I10 refill [id number] GT DURBIN [facility] [address] [place] [address] 02/17/2022 11:59:02 02/19/2022 08:32:43 Irregular heart beat 424648105 R00.8 controlled on BB 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 Celaya. CTA 2019: in comparison to 2014 (measuring 4.8 cm) the CTA done 2019 shows fusiform aneurysm of ascending aorta measuring 5.8cm at level of mail pulm artery, enlarged since the comparison exam - was seen Dr Tuttle, will send referral back Chronic hepatitis C 1283 79022 B18.2 scheduled for March 2022hep C checked 2019hep c quant 65171, hcv log10 4.755, genotype 1B Obesity 879805737 E66.9 bmi 30.9 - DICUSSED DASH DIET- he denies alcohol or smoking hx- increase veggies and whole grains Aortic aneurysm 50548355 I71.9 in comparison to 2014 (measuring 4.8 cm) the CTA done 2019 shows fusiform aneurysm of ascending aorta measuring 5.8cm at level of mail pulm artery, enlarged since the comparison exam - has not scheduled with surgeon Chronic ki dney disease 059527413 N18.9 GFR AND CR at baseline since 2018 2021: cr 1.60 GFR 573131: cr 1.52 GFR 51 Essential hypertension 62332618 I10 Improved today to 138/76, would like toghter control due to AAA. [id number] GT DURBIN [facility] [address] [place] [address] 06/08/2022 12:43:05 06/11/2022 15:04:15 Edema of lower extremity 125332537 R60.0 right LE edema from knee down w/o pain x 2 daysknown clot on imaging and on 8mg warfarin dailyrepea t US Warfarin m onitoring status 400134436 Z51.81 on 8 mg dailylast INR on day of d/c 2.5 Hospital i npatient stay within past 30 days 2710863577 106 Z76.89 labs At [facility] ed risk for falls 519627435 Z91.81 Patient using walker and not steady with walkingHe was hopistaliz e> 1 month and would benefit from working on strength and balance [id number] GT DURBIN [facility] [address] [place] [address] 06/19/2022 10:23:53 07/09/2022 14:40:08 Warfarin monitoring status 624797737 Z51.81 on 8 mg dailylast INR on day of d/c 2.5 At [facility] ed risk for falls 901264163 Z91.81 Patient using walker and not steady with walkingHe was hopistaliz e> 1 month and would benefit from working on strength and balance Anemia 994732588 D64.9 Long-term current use of antibiotics for prevention of recurrent infection 6588896713 3433500 Z79.2 Neuropathy 127118046 G62 .9 Obesity 723975000 E66.9 bmi 30.9 - DICUSSED DASH DIET- he denies alcohol or smoking hx- increase veggies and whole grains [id number] Sophy Antonia [facility] [address] [place] [address] 07/21/2022 09:28:29 07/21/2022 09:41:12 [id number] Josie Riggs [facility] [address] [place] [address] 07/27/2022 10:14:21 07/27/2022 10:30:11 [id number] Josie Riggs [facility] [address] [place] [address] 07/29/2022 10:51:24 07/29/2022 10:54:17 [id number] Kimo beltran MD [place] [address] [address] [facility] [address] [place] [address] 07/31/2022 10:41:31 08/04/2022 12:02:54 Atrial fibrillation 63255008 I48.91 Valvular A-Fib. Currently on warfarin 12mg which he self titrated up from his prescribed 8mg. He also recently started ciprofloxa shereen which can increase warfarin levels. INR today is 4.4-Decrea se warfarin to 8mg daily.-Chai led office of Dr. [facility] . forwarded [facility] dc summary to office. They scheduled him for an appointmen t on 08/03/22 at 11. They do not have a coumadin clinic but they can manage his warfarin.- Repeat INR ordered at [facility] for follow up on our end.- Continue ABX for possible IE. This is being directed by team at [facility].- Home health- Cardiac Rehab- Continue monitoring anemia and kidney function.- Continue Hep C treatment with Mavyret. Weakness of left leg 354 5569192 7031080 G83.12 Subacute. Improving. See imaging in DC summary from 06/04/22. Has MRI brain scheduled in out pateint setting. Can start physical therapy now that picc line has been removed. [id number] Kimo beltran MD [facility] [address] [place] [address] 10/23/2022 12:08:33 10/29/2022 11:58:28 Iron deficiency anemia 77977216 D50.9 monitoring . will try one month of iron adn repeat in one month. his iron has decreased but hgb has improved. known CKD. needs to f/y with nephrology . 10/23/22: iron 6, iron sat 26, ferritin 20, hgb 13.42/10/2 3 iron 38, iron sat 12, hgb 11.4 Warfarin m onitoring status 223616681 Z51.81 on 8 mg x 5 days and 10mg x 2 days monitored by warfarin clinicwill fax INR to Dr tuttle Squamous c ell carcinoma of skin 274461950 C44.92 patient with growing skin cancer, likely squamous cell, on R armPatient is on warfarin and I have no way to control bleed in office not ask patient to hold warfarin due to cardiac conditionp ictures of lesion uploaded to chartrefer ral given to patient, asked to call today and make get appointmen t ANUP Neuropathy 536266396 G62 .9 following neurologyu nable to tolerate EMGMRI cervical shows cervical myelopathy on chrt review Spinal lokesh nosis in cervical region with myelopathy 2636257436 105 G99.2 confirmed on MRIfollowi neurologyr eferred to ortho surgery but has not followed up [id number] GT DURBIN [facility] [address] [place] [address] 12/22/2022 10:01:23 12/22/2022 10:50:06 Essential hypertension 28884014 I10 elevated today 142/90. just took medication prior to appointmen tfollowing Dr Tuttle cardiology and saw him last weekDawn will call back to make sure he is supposed to be off amiodarone Basal cell carcinoma of skin 361327550 C44.91 removed by U dermatolog yhas f/u coming up for mohs? Blurring o f visual image 708515720 H53.8 will call quantum to schedule [id number] GT DURBIN [facility] [address] [place] [address] 05/12/2023 10:33:18 05/12/2023 12:36:58 Iron deficiency anemia 28815658 D50.9 hx of anemianot on iron due to mild iron overload 12/2022 Adult [facility] th examination 315447919 Z00.00 - labs- need Dr Tuttle notes- heart healthy diet Obesity 875723115 E66.9 bmi 30.9 - DICUSSED DASH DIET- he denies alcohol or smoking hx- increase veggies and whole grains [id number] GT DURBIN [facility] [address] [place] [address] 09/13/2023 11:14:11 10/07/2023 13:20:56 Dizziness 665650784 R42 saw dr Tuttle May or sohas f/u soonhas episode last week when felt weak and sat down, no LOC.r/o anemiachec k vision Iron defic iency anemia 12627711 D50.9 hx of anemianot on iron due to mild iron overload 12/2022 Visual impairment 446690 003 H54.7 will go back to [facility] Essential hypertension 77902626 I10 140/100 todaydid not take medication this morningrun s normal at homecontin ue monitoring as may be causing dizziness Obesity 859335579 E66.9 bmi 31.5 - DICUSSED DASH DIET- he denies alcohol or smoking hx- increase veggies and whole grains Health Concerns Section Related Observation LastModified by Organization Detai ls LastModified Time None Recorded Concern Status LastModified by Organization Details LastModified Time None Recorded Advance Directives Directive None Recorded Payers Encounter Date Sequence Insurance Name Policy Number Policy Varma Covered Member ID Varma Member ID Guarantor Name 07/31/2022 1 [facility] - DOS ON OR AFTER 20 (MEDICAID REPLACEMENT - HMO) Stephan [facility] [id number] Stephan Hubbard [facility] [facility] ON OR AFTER 11/07/20 (MEDICAID REPLACEMENT - HMO) [facility] [id number] [facility] [place] 12/22/[address] [facility] ON OR AFTER 05/10/2020 - DUAL ELIGIBLE (MEDICARE REPLACEMENT/ADVANT AGE - HMO) [facility] [id number] [facility] 05/12/[address] [facility] ON OR AFTER 05/10/2020 - DUAL ELIGIBLE (MEDICARE REPLACEMENT/ADVANT AGE - HMO) [facility] [id number] [facility] 05/12/2023 1 [facility] - DUAL ELIGIBLE - [place] (MEDICARE REPLACEMENT/ADVANT AGE) [facility] [id number] [facility] 09/13/[address] [facility] ON OR AFTER 11/07/20 (MEDICAID REPLACEMENT - HMO) [facility] [id number] [facility] Notes Date Note Type Note Provider Name and Address Organization Details Recorded Time 07/31/2022 text/html Complex patient presents from [facility] for follow up coumadin titration and management of other chronic conditions. Patient was hospitalized at [facility] - see DC summary from 06/04/22. Briefly - underwent aortic root replacement. Subsequently developed valvular a-fib. Developed DVT and subsequent PE. Developed IE. Current active issues include: Valvular AF. Status post open heart surgery, valve replacement. Previoulsy following with Dr. Howard at [facility] but that office is not aware of this most recent hospitalization. Recently finished course of IV ABX and started Ciprofloxacin on approximately 07/27/22 for IE. He has been on coumadin with monitoring by home health but has not been therapeutic and is not following with coumadin clinic. He reports that for the past 3 days he has been taking 12mg coumadin daily. Recently started treatment for hep c with Mavyret. Developed left leg weakness which is resolving. MRI brain in out patient is pending. Mild anemia. Early CKD: GFR 58, alburim/cr = 102. Referred to nephrology. Kimo Martinez MD Attn: Accounting[address] [place], [address], [facility] 07/31/2022 17:16:33 10/23/2022 text/html Complex patient presents with partner Karolina for f/u Patient missed appointment f/u with Dr Martinez. Since last appointment he had been following Coumadin clinic with Dr Tuttle, his triage specialist. Patient 10mg on 2 days and 8 mg rest of the time. He is complaint. He has f/u INR today and would like to ahve it done here and faxed to Dr Tuttle. Patient states he is fine today. He would like mass on his arm looked at now. He was unable to f/u with dermatology. He would like me to remove it today. Hep C: patient was taken of atorvastatin by Dr Tuttle while on Hep C treatment with Mavyret. he is still under treatment. anemia: will monitor today skin lesion: patient has been sent to dermatology since 12/2021 for growing skin lesion on arm. This was out on hold due to hospitalization and cardiac surgery. Per patient this has been growing and wants it removed. CKD: at his baseline. follows nephrology. On chart review: RUBINA 07/20/22: marked LVH. Aortic root thickening w/ possible abscess (unchanged from 05/2022). CT/MRI advised. has not been done yet. He continues taking cipro until next RUBINA to monitor probable vegetation. Per notes MRI of heart was ordered but this has not been done yet. recently done with cardiac re[facility]. He is going to start PT/OT for hand and leg. Neuro: saw sheree Guan and dx with cervical myelopathy confirmed with MRI and referred to ortho spine and PT. EMG not toelrated. Per patient and Karolina, no one has reached out to schedule for ortho. to return 02/2023 Kimo Martinez MD Attn: Accounting,[address] [facility], [place], [address], [facility] 10/28/2022 09:54:16 12/22/2022 text/html Stephan presents for F/U on arm lesion He had lesion removed on RF arm and dx [facility]. He has f/u to make sure all borders were removed. He is happy to have lesion off. He recently saw Dr Tuttle. On chart review he has elevated BP and states he took medication within 20 minutes of walking in. denies p, sob palpitations He c/o of occasional blurry vision today without vision loss. He morris chedule appoitnment with opthalmology. GT DURBIN Attn: Accounting,[address] [facility], [place], [address], [facility] 12/22/2022 10:34:32 05/12/2023 text/html Stephan presents for f/u saw Dr Tuttle one month ago and was taken off warfarin as the RUBINA showed the vegetation in his heart was gone. He has f/u in 3 months. He has no complaints today. He took his medication this morning. He is mostly complaint. He frgot to take it yesterday. GT DURBIN Attn: Accounting,[address] [facility], [place], [address], [facility] 05/13/2023 08:17:00 09/13/2023 text/html Stephan presents for f/u Stephan has been having brief episodes of off and on dizziness and occasional changes in his vision described as kaleidoscope for weeks. He has not seen eye doctor for this. He does have hx of anemia. denies falls form his dizziness. He wants to apply for disability GT DURBIN Attn: Accounting,[address] [facility], [place], [address], [facility] 10/05/2023 08:48:44
--- OUTSIDE RECORDS SUMMARY | 2024-06-18 18:52 | XMS_ITS | Referral Summary ---
Author Organization [facility] Address [address] [place] [address] Care Team Providers Care Director Emergency Department Name Role Phone Unavailable Primary Care Provider Unavailabl e Source Comments [facility],non-owned Affiliates and Associated Physician Practices is amultiple site organization consisting of ambulatory clinics and hospital sitesin [place], [place], [place]. This disclosure is being madepursuant to the Care Everywhere program and may not contain all information available regarding this patient. 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 No 05/15/2014 Is person blind or have serious difficulty seein g? No 05/15/2014 Does person have serious dif ficulty walking/climbing stairs? No 05/15/2014 Does person have difficulty dressing/bathing? No 05/15/2014 Does person have difficulty doing errands alone? No 05/15/2014 Cognitive Status Response Date of Assessm ent Does person have difficulty concentrating/remembering/making decisions? No 05/15/2014 Plan of Treatment Not on file Procedures Procedure Name Priority Date/Time Associated Diagnosis Comments LIPID PROFILE Routine 10/02/2014 8:39 AM CDT Leg pain, left Edema from Last 3 Months or Most Recently Relevant to Health Maintenance Results * LIPID PROFILE (10/02/2014 8:39 AM CDT) Cholesterol 159 <200 mg/dL 10/02/2014 9:02 AM T [facility] Triglycerides 75 <150 mg/dL 10/02/2014 9:02 AM CDT [facility] HDL Cholesterol 50 >40 mg/dL 10/02/2014 9:02 AM T [facility] LDL Calculated 94 <130 mg/dL 10/02/2014 9:02 AM T [facility] VLDL Calculated 15 <=30 mg/dL 10/02/2014 9:02 AM T [facility] Chol HDL Ratio 3.2 <4.5 10/02/2014 9:02 AM T [facility] LDL/HDL Ratio 1.9 <5.0 10/02/2014 9:02 AM [facility] Blood BLOOD SPECIMEN / Unknown Lab Venipuncture / Unknown 10/02/2014 8:39 AM CDT 10/02/2014 8:43 AM CDT Justin Duque MD LAB - CHEMISTRY [facility] Organization Address City/State/ZIP Co de Phone Number [facility] [address] [place] [address] from Last 3 Months or Most Recently Relevant to Health Maintenance Additional Health Concerns Infection Onset Date Last Indicated MRSA Comment:05/17/14 abscess; poa; clinda susp 05/17/2014 05/17/2014 Advance Directives * Full Code (Latest Code Status on File) Date Activated Date Inactivated Comments 05/15/2014 2:03 AM 05/19/2014 3:07 PM"
[2024-06-18 18:53] VITALS: BP 186/106; PULSE 87; RESP 22; TEMP 36.5; O2SAT 100
--- NOTE | 2024-06-18 19:07 | ED.ABDPAIN ---
HPI - Abdominal Pain General Chief Complaint: Abdominal Pain Stated Complaint: flank pain Time Seen by Provider: 06/18/24 19:06 Source: patient and family Limitations: no limitations History of Present Illness HPI narrative: Patient presents with left-sided abdominal pain and flank pain that has been increasingly getting worse but reportedly started around 17 30. He rates the pain as 10/10 in severity. He has a history of multiple chest and abdominal surgeries after an aortic dissection - performed at [place]; has implantable device. No history of kidney stones or diverticulitis. Denies hematuria, urgency, frequency, or dysuria. States his last bowel movement was this morning and last night he had some loose runny stool. His last oral intake was when he smacked on some apple pie a few hours ago he does not currently have an appetite. No nausea, vomiting, fever, chill, penile discharge, or penile or scrotal pain. He is supposed to be on carvedilol and amlodipine but he states that he ran out of amlodipine. Not on anticoagulation. Spouse notes that he has been very gassy and burping frequently Related Data Home Medications ?Medication ?Instructions ?Recorded ?Confirmed ?Last Taken ?Type carvedilol 25 mg tablet 25 mg PO Q12H 01/28/22 06/15/24 Unknown History aspirin 81 mg tablet,delayed 81 mg PO DAILY 10/08/22 06/15/24 Unknown History release (Adult Aspirin Regimen) Allergies Allergy/AdvReac Type Severity Reaction Status Date / Time No Known Allergies Allergy Verified 06/15/24 09:46 [facility] Past Medical History Medical History (Updated 06/19/24 @ 00:01 by Bethany Barnhart) Aortic dissection Osteoarthritis of hips, bilateral Surgical History Surgical History (Updated 06/18/24 @ 19:21 by Ashlyn So MD) History of abdominal surgery 2014; H/O heart surgery ? 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 HEAD: Normocephalic, atraumatic. EYES: Non injected, non icteric ENT: Nares clear, no rhinorrhea or epistaxis. NECK: Supple. CHEST: Speaking in full sentences. No respiratory distress. Well-healing scar overlying chest. HEART: Regular rate and rhythm. . ABDOMEN: Soft, mildly distended but otherwise without rigidity or guarding. Pain out of proportion to exam. Well-healing multiple abdominal scars. No overlying ecchymosis. EXTREMITIES: Normal range of motion. No lower extremity edema. SKIN: Warm, dry, no rash. NEURO: No focal deficits. Alert and oriented x3. PSYCH: Normal mood and affect. Course Vital Signs Vital signs: Vital Signs Temperature 97.7 F 06/18/24 18:53 Pulse Rate 87 06/18/24 18:53 Respiratory Rate 22 H 06/18/24 18:53 Blood Pressure 186/106 H 06/18/24 18:53 Pulse Oximetry 100 06/18/24 18:53 Temperature 97.7 F 06/18/24 18:53 Pulse Rate 78 06/18/24 22:00 Respiratory Rate 14 06/18/24 22:00 Blood Pressure 178/99 H 06/18/24 22:00 Pulse Oximetry 98 06/18/24 22:00 MDM - Abdominal Pain MDM Narrative Medical decision making narrative: 58-year-old male with past medical history aortic dissection status post multiple corrective procedures presents with left-sided abdominal pain and flank pain starting approximately 17 30. In the emergency department he is afebrile with vital signs notable for hypertension and tachypnea. Will order labs to include lactic acid and will proceed with CTA imaging. CBC generally unremarkable without leukocytosis or anemia. Patient's creatinine appears to have ranged from 1.4-1.9 previously and is 1.5 today consistent with known history of CKD. Mild pyuria on exam without other features of urinary tract infection. Although CT showed a nonobstructing kidney stone which should otherwise not be symptomatic, patient did appear to be symptomatic and it took a few doses of analgesia. For this reason, he will provide medications to treat as a kidney stone as well as bentyl. Advised follow-up with primary care physician as well as Urology if needed and also told to return to the emergency department if any new or worsening symptoms. He and support person verify understanding and are in agreement. Differential Diagnosis Differential diagnosis: Likely abdominal pain, calculus of kidney, constipation, diverticulitis, pancreatitis, small bowel obstruction and other (Aortic dissection, mesenteric ischemia) Lab Data Attestation: I reviewed the patient's lab results. 06/18/24 19:04 06/18/24 19:04 Labs: Lab Results 06/18/24 06/18/24 06/18/24 Range/Units 19:04 19:23 20:58 WBC 7.9 (4.5-10.0) K/mm3 RBC 6.11 (4.6-6.20) M/mm3 Hgb 17.2 (14.0-18.0) g/dL Hct 51.2 (42.0-52.0) % MCV 83.8 (80-100) fl MCH 28.2 (26-34) pg MCHC 33.6 (32-36) g/dl RDW 13.5 (11.5-14.5) % Plt Count 205 (150-375) k/mm3 MPV 9.7 (7.4-10.4) fl Immature Gran % (Auto) 0.4 (0-0.5) % Neut % (Auto) 62.3 (45.5-73.1) % Lymph % (Auto) 23.0 (18.3-44.2) % Bailey % (Auto) 10.7 H (2.6-8.5) % Eos % (Auto) 3.0 (0-4.4) % Baso % (Auto) 0.6 (0.2-1.2) % Lymph # (Auto) 1.82 (0.9-3.2) K/mm3 Bailey # (Auto) 0.9 H (0.1-0.6) K/mm3 Eos # (Auto) 0.2 (0-0.3) K/mm3 Baso # (Auto) 0.1 (0.0-0.1) K/mm3 Abs Immat Gran (auto) 0.03 (0.00-0.031) K/mm3 Absolute Neuts (auto) 4.9 (1.3-6.7) K/mm3 Absolute Nucleated RBC 0.000 (0.0-0.012) K/mm3 Nucleated RBC % 0.0 (0.0-0.2) % Sodium 138 (137-145) mmol/L Potassium 4.1 (3.4-5.0) mmol/L Chloride 103 (98-107) mmol/L Carbon Dioxide 26 (22-30) mmol/L Anion Gap 9 (4-12) mmol/L BUN 31 H (9-20) mg/dL Creatinine 1.55 H (0.7-1.3) mg/dL Estim Creat Clear Calc 63 ml/min Estimated GFR 46 L (59 - ) Glucose 101 (65-110) mg/dL Lactic Acid 1.3 (0.7-2.0) mmol/L Calcium 9.3 (8.4-10.2) mg/dL Magnesium 2.0 (1.6-2.3) mg/dL Total Bilirubin 0.8 (0.2-1.3) mg/dL AST 19 (17-59) U/L ALT 15 (6-50) U/L Alkaline Phosphatase 99 (38-126) U/L Total Protein 8.0 (6.3-8.2) g/dL Albumin 4.3 (3.5-5.1) g/dL Lipase 224 (23-300) U/L Urine Color Yellow (Yellow) Urine Appearance Clear (Clear) Urine pH 5.5 (5.0-9.0) Ur Specific Odem > 1.045 H (1.001-1.035) Urine Protein 1+ H (Negative) mg/dL Urine Glucose (UA) Negative (Negative) mg/dL Urine Ketones Negative (Negative) mg/dL Ur Blood (Man) Negative (Negative) Urine Nitrate Negative (Negative) Urine Bilirubin Negative (Negative) Urine Urobilinogen 0.2 (<2.0) mg/dL Leukocyte Esterase Rfl Negative (Negative) JESSIE/UL Urine RBC 0-2 (0-2) /hpf Urine WBC 6-10 H (0-3) /hpf Ur Squamous Epith Cells None seen (Few) /hpf Urine Bacteria None seen /hpf Urine Casts 0-2 Influenza A (RT-PCR) Negative (Negative) Influenza B (RT-PCR) Negative (Negative) SARS-CoV-2 RNA (RT-PCR) Negative (Negative) Imaging Data Radiologist's impression: ITS Impressions Chest X-Ray 06/18/24 20:02 IMPRESSION: No focal infiltrate or effusion. Abdomen/Pelvis CTA 06/18/24 20:16 IMPRESSION: 7.4 mm nonobstructing calculus within the lower pole of the left kidney. Colonic diverticulosis without surrounding inflammatory change. Normal appendix. Cholelithiasis without CT evidence of cholecystitis Discharge Plan Discharge Clinical Impression: CKD (chronic kidney disease), Acute abdominal pain in left flank, Kidney stone on left side, Diverticulosis of colon, Cholelithiases, Pyuria, Left sided abdominal pain, Encounter for medication refill Patient Disposition: Home, Self-Care Condition: Stable Instructions: Antibiotic Form, Gallstones (ED), Diverticulosis (DC), Kidney Stones (ED), Chronic Kidney Disease (ED), Chronic Kidney Disease Diet (DC), How to Strain Your Urine (ED), Abdominal Pain (ED), Flank Pain (ED) Additional Instructions: As we discussed, no clear cause of your symptoms. You do have a kidney stone however it is located within the kidney and these are typically not painful. However, given you were so symptomatic, will treat with combination of medications prescribed. You can follow-up with urology if desired. Alternatively, if this was related to GI tract spasms, can use the Bentyl. Continue taking your the medications as prescribed. Because you are out, your amlodipine has also been refilled. Follow-up with your primary care physician for further refills as well as for continued monitoring of these and other conditions. As we discussed, you also incidentally have diverticulosis but without diverticulitis and gallstones but without evidence of infection/inflammation, etc. return to the emergency department with any new or worsening symptoms. Patient Language: Eritrean Prescriptions: New amlodipine [Norvasc] 10 mg tablet 10 mg PO DAILY Qty: 30 0RF dicyclomine 10 mg capsule 10 mg PO BID PRN (Reason: abdominal pain) Qty: 10 0RF ibuprofen 200 mg capsule 600 mg PO Q8H PRN (Reason: pain) Qty: 30 0RF tamsulosin [Flomax] 0.4 mg capsule 0.4 mg PO HS Qty: 14 0RF ondansetron 4 mg tablet,disintegrating 4 mg PO Q8H PRN (Reason: nausea and vomiting) Qty: 7 0RF No Action carvedilol 25 mg tablet 25 mg PO Q12H Rx Instructions: must administer with a meal/food aspirin [Adult Aspirin Regimen] 81 mg tablet,delayed release (DR/EC) 81 mg PO DAILY amlodipine 10 mg tablet 10 mg PO DAILY Qty: 90 2RF sildenafil 100 mg tablet See Rx Instructions .ROUTE .COMPLEX Qty: 10 3RF Dose Instruction: TAKE ONE TABLET BY MOUTH 4 HOURS BEFORE SEXUAL ACTIVITY Rx Instructions: TAKE ONE TABLET BY MOUTH 4 HOURS BEFORE SEXUAL ACTIVITY Follow-up/Referrals: Lucero,GT Humphrey [Primary Care Provider] - Stand Alone Forms: Work/School Release IP Time of Disposition: 22:08
--- OUTSIDE RECORDS SUMMARY | 2024-06-18 19:16 | XMS_ITS | Referral Summary ---
Author Organization [facility] Address [address] [place] [address] Care Team Providers Care Airline Stewardess Name Role Phone Unavailable Primary Care Provider Unavailabl e Source Comments [facility],non-owned Affiliates and Associated Physician Practices is amultiple site organization consisting of ambulatory clinics and hospital sitesin [place], [place], [place] and [place]. This disclosure is being madepursuant to the Care Everywhere program and may not contain all information available regarding this patient. 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 Respiratory Rate 20 01/08/2016 9:31 AM CDT [...] 159 <200 mg/dL 10/02/2014 9:02 AM T [facility] Triglycerides 75 <150 mg/dL 10/02/2014 9:02 AM CDT [facility] HDL Cholesterol 50 >40 mg/dL 10/02/2014 9:02 AM T [facility] LDL Calculated 94 <130 mg/dL 10/02/2014 9:02 AM T [facility] VLDL Calculated 15 <=30 mg/dL 10/02/2014 9:02 AM T [facility] Chol HDL Ratio 3.2 <4.5 10/02/2014 9:02 AM T [facility] LDL/HDL Ratio 1.9 <5.0 10/02/2014 9:02 AM [facility] Blood BLOOD SPECIMEN / Unknown Lab Venipuncture / Unknown 10/02/2014 8:39 AM CDT 10/02/2014 8:43 AM CDT Justin Duque MD LAB - CHEMISTRY [facility] Organization Address City/State/ZIP Co de Phone Number [facility] [address] [place] [address] from Last 3 Months or Most Recently Relevant to Health Maintenance Additional Health Concerns Infection Onset Date Last Indicated MRSA Comment:05/17/14 abscess; poa; clinda susp 05/17/2014 05/17/2014 Advance Directives * Full Code (Latest Code Status on File) Date Activated Date Inactivated Comments 05/15/2014 2:03 AM 05/19/2014 3:07 PM
--- OUTSIDE RECORDS SUMMARY | 2024-06-18 19:16 | XMS_ITS | Encounter Summary ---
Author Organization [facility] Address [address] [place] [address] Care Team Providers Care Chair Name Role Phone Jaycob Lerner DO Unavailable [phone] Rose Barker Primary Care Provider + Karo Perry MD Unavailable Unknown, Notinfile Unavailable Unavailable Miscellaneous, Not In File Unavailable Unava ilable Encounter Details Date Type Department Care Team (Late st Contact Info) Description 01/08/2023 Telephone [facility] [address] [place] [address] Melvi Nesbitt RN Social History [...] often do you attend chur ch or orthodoxy services? Never 05/06/2022 Do you belong to any clubs o r organizations such as yazdanism groups, unions, fraternal or athletic groups, or [...] place to sleep or slept in a mcfp (including now)? 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 Sexual Orientation Straight 03/27/2020 2: 49 PM RUBBER ENGRAVER Occupation Industry Job Start Date Job End Date Unemployed Not on file Not on file Not on file documented as of this encounter Plan of Treatment Not on file documented as of this encounter Visit Diagnoses Not on filedocumented in this encounter Care Teams Chair Relationship Specialty Start Date End Date Rose Barker PA [address] [place] [address] PCP - General Physician Integrated Circuits Inspector 03/02/22 Jaycob Lerner DO [address] [place] [address] Referring Physician Cardiology 03/02/22 Karo Perry MD [id number] [place] [address] Surgeon Cardiothoracic Surgery 04/27/22 Unknown, Notinfile 04/27/22 Miscellaneous, Not In File 06/04/22 documented as of this encounter
--- OUTSIDE RECORDS SUMMARY | 2024-06-18 19:16 | XMS_ITS | Patient Health Summary ---
Author Organization [facility] [employer] Address [address] [place] [address] Care Team Providers Care Chief Librarian Music Department Name Role Phone Unavailable Primary Care Provider Unavailabl e Note from [facility],non-owned Affiliates and Associated Physician Practices is amultiple site organization consisting of ambulatory clinics and hospital sitesin [place], [place], [place] and [place]. This disclosure is being madepursuant to the Care Everywhere program and may not contain all information available regarding this patient. Last updated 18.[facility] [employer] Allergies No known active allergies Medications * [...] 37 C (98.6 F) 05/19/2014 8:26 AM PLACEMENT DIRECTOR Respiratory Rate 20 01/08/2016 9:31 AM CDT Oxygen Saturation 98% 03/08/2017 9:57 AM CDT Inhaled Oxygen Concentration - - Weight 115.4 kg (254 lb 6.4 oz) 03/08/2017 9:57 AM CDT Height 188 cm (6' 2 ) 03/08/2017 9:57 AM CDT Body Mass Index 32.66 03/08/2017 9:57 AM CDT Procedures * WA CHMSRG MOHS MG TQ T/A/L 1ST STAG 5 BLOCKS(Performed 01/07/2023) Performed for Basal cell carcinoma of right forearm * WA INTMD WND REPAIR TRUNK,ARM,LEG 2.6-7.5(Performed 01/07/2023) Performed for Basal cell carcinoma of right forearm * WA DESTRUCT BENIGN LESION, 1-14(Performed 12/10/2022) Performed for Seborrheic keratosis, inflamed * WA TANGNTL BX SKIN SINGLE LES(Performed 12/10/2022) Performed [...] 05/14/2014) * CULTURE BLOOD(Performed 05/14/2014) Results * WA INTMD WND REPAIR TRUNK,ARM,LEG 2.6-7.5, WA CHMSRG MOHS MG TQ T/A/L 1ST STAG [...] final defect: adipose Previous dermpath accession #: [id number] Repair type: intermediate Mohs accession #: [id number] [...] confirmed by the patient. All components of [place] Protocol/PAUSE Rule completed. STAGE I: The patient [...] Inflammation obscuring possible tumor presence: Not Present [facility] CLIA # [id number] Mohs cleaner laboratory equipment: Nona Simons MD REPAIR: Intermediate Primary Surgeon: Bradley Shaw MD General Counsel: Conrad Anderson MD Repair Size: 6.0 cm Sutures: [...] Shaw MD PROCEDURE/MINOR SURG ICAL ORDERABLES * WA DESTRUCT BENIGN LESION, 1-14 (12/10/2022 3:06 PM CDT) Narrative Justin Murray MD - 12/10/2022 3:06 PM CDT Jelani Odom MD 12/10/2022 3:08 PM Diagnosis and treatment options discussed. Discussed high risk of recurrence. Liquid nitrogen was applied to 1 lesions (R lateral jawline) for 5-7 seconds for 2 cycles. Wound care reviewed. Jelani Odom MD [facility] Dermatology Resident, PGY-4 Justin Murray MD PROCEDURE/MINOR SURG ICAL ORDERABLES * WA TANGNTL BX SKIN SINGLE LES (12/10/2022 2:50 [...] message if not available. Jelani Odom MD [facility] Dermatology Resident, PGY-4 Justin Murray MD PROCEDURE/MINOR SURG ICAL ORDERABLES * DERMATOPATHOLOGY (12/10/2022 3:33 AM CDT) Case Report Dermatopathology Report Case: [id number] Authorizing Provider: Justin Murray MD Collected: 12/10/2022 03:33 AM Ordering Location: [facility] Dermatology Received: 12/10/2022 04:45 PM Pathologist: Kalli [...] specimen consists of a shave biopsy measuring 89g98w5 mm. Jar 0. 3 4:07 PM CDT [...] characteristic determined by the Dermatopathology Laboratory at [facility], directed by Dr. Inge Harrison. These tests need not be, and therefore are not, approved by the [place] Food and Drug Administration. The tests are used for clinical purposes. Billing Codes Specimen Charges Stain Charges 64413 1 3 4:07 PM CDT DERMATOPATHOLOGY LABORATORY Embedded Images 3 4:07 PM CDT DERMATOPATHOLOGY LABORATORY Pathology/Cytolo gy TISSUE SPECIMEN FROM SKIN / Unknown 12/10/2022 3:33 AM CDT 12/10/2022 4:45 PM CDT Justin Murray MD LAB - PATHOLOGY/CYTO LOGY ORDERABLES DERMATOPATHOLOGY LABORATORY [facility] - Department of Dermatology [address], [address] [phone] * EKG 12-LEAD (03/08/2017) Only the most recent of4 resultswithin the time period is included. Impressions Kadie Cox - 03/08/2017 Sinus with PACs Nonspecific ST abnormality Justin Duque MD ECG ORDERABLES * CREATININE BLOOD - POINT OF CARE (IP) (06/12/2015 11:12 AM PLACEMENT DIRECTOR) Creatinine POCT 0.71 0.7 - 1.2 mg/dL [facility] POCT TESTING QC Verified Yes Yes [facility] POC T TESTING Blood specimen (specimen) BLOOD SPECIMEN / Unknown 06/12/2015 11:12 AM PLACEMENT DIRECTOR Justin Duque MD LAB - POINT OF CARE ORDERABLES Performing Organization Address City/State/[facility] Co de Phone Number [facility] POCT TESTING [address] [phone] * CT ANGIO CHEST ABD PELVIS (06/12/2015 11:10 AM PLACEMENT DIRECTOR) Anatomical Region Laterality Modality Computed Tomogra phy 06/12/2015 12:2 0 PM PLACEMENT DIRECTOR Narrative 06/12/2015 2:[address] ANGIOGRAM CHEST, ABDOMEN AND PELVIS HISTORY: [...] Note Keith Guerra MD - 10/25/[address] [place] [address] [facility] Venous Reflux Ultrasound Report Pat.Name: GULSHAN NESS Pat.ID: [id number] St.Date: 10/19/2014 Exam Time: 2:03:00 PM Study Type:Venous Reflux Age: 8 1965,48Y Sex: MALE Sonogrphr: Sharmaine Sosa RVT, [facility] Pat. Stat.:Outpatient CPT - 4: 42063 Reason for Study:Edema, Leg pain Procedures:Venous Reflux Complete - Bilateral Visit ID: [id number] SUMMARY: All superficial and deep veins in [...] Signed 10/25/2014 02:20 PM Inge Guerra MD, [facility] Justin Duque MD VASCULAR LAB ORDERAB LES * (ABNORMAL) BASIC METABOLIC PANEL (CALCIUM TOTAL) (10/02/2014 8:39 AM CDT) Only the most recent of4 resultswithin the time period is included. Glucose 89 74 - 106 mg/dL 10/02/2014 9:02 AM [facility] Sodium 135(L) 136 - 145 mmol/L 10/02/2014 9:02 AM [facility] Potassium 4.0 3.5 - 5.1 mmol/L 10/02/2014 9:02 AM [facility] Chloride 101 98 - 107 mmol/L 10/02/2014 9:02 AM [facility] CO2 29 22 - 31 mmol/L 10/02/2014 9:02 AM [facility] Calcium 9.4 8.5 - 10.1 mg/dL 10/02/2014 9:02 AM [facility] Anion Gap 5 5 - 15 mmol/L 10/02/2014 9:02 AM [facility] BUN 27(H) 7 - 21 mg/dL 10/02/2014 9:02 AM [facility] Creatinine 1.12 0.50 - 1.30 mg/dL 10/02/2014 9:02 AM [facility] eGFR by MDRD >60 >60 mL/min/1.7 3m2 10/02/2014 9:02 AM [facility] eGFR by MDRD >60 >60 mL/min/1.7 3m2 10/02/2014 9:02 AM [facility] Blood BLOOD SPECIMEN / Unknown Lab Venipuncture / Unknown 10/02/2014 8:39 AM CDT 10/02/2014 8:43 AM CDT Justin Duque MD LAB - CHEMISTRY LA [place]END[place]A Performing Organization Address City/[facility]/ZIP Co de Phone Number [facility] [address] [place] [id number] * CK BLOOD (10/02/2014 8:39 AM CDT) CK 129 35 - 232 U/L 10/02/2014 9:02 AM [facility] Blood BLOOD SPECIMEN / Unknown Lab Venipuncture / Unknown 10/02/2014 8:39 AM CDT 10/02/2014 8:43 AM CDT Justin Duque MD LAB - CHEMISTRY [place] [facility] [address] [place] [id number] * LIPID PROFILE (10/02/2014 8:39 AM CDT) Cholesterol 159 <200 mg/dL 10/02/2014 9:02 AM [facility] Triglycerides 75 <150 mg/dL 10/02/2014 9:02 AM [facility] HDL Cholesterol 50 >40 mg/dL 10/02/2014 9:02 AM [facility] LDL Calculated 94 <130 mg/dL 10/02/2014 9:02 AM [facility] VLDL Calculated 15 <=30 mg/dL 10/02/2014 9:02 AM [facility] Chol HDL Ratio 3.2 <4.5 10/02/2014 9:02 AM [facility] LDL/HDL Ratio 1.9 <5.0 10/02/2014 9:02 AM [facility] Blood BLOOD SPECIMEN / Unknown Lab Venipuncture / Unknown 10/02/2014 8:39 AM CDT 10/02/2014 8:43 AM CDT Justin Duque MD LAB - CHEMISTRY [place] [facility] Organization Address City/State/ZIP Co de Phone Number [facility] [address] [address] * XR KNEE BILAT ONE OR TWO [...] CARDIAC RHYTHM STRIP ORDER (05/21/2014 6:19 PM PLACEMENT DIRECTOR) Narrative 05/21/2014 6:19 PM PLACEMENT DIRECTOR Ordered by an unspecified provider. Scanned Document CARDIAC SERVICES ORD ERABLES * VANCOMYCIN LEVEL RANDOM (05/19/2014 10:12 AM PLACEMENT DIRECTOR) Only the most recent of2 resultswithin the time period is included. Vancomycin Random 16.1 ug/mL 05/19/2014 10:40 AM PLACEMENT DIRECTOR [facility] Blood BLOOD SPECIMEN / Unknown Lab Venipuncture / Unknown 05/19/2014 10:12 AM PLACEMENT DIRECTOR 05/19/2014 10:17 AM [facility] Narrative [facility] - 05/19/2014 10:40 AM [facility] No reference range available for random Vancomycin levels. All results interpreted by ordering physician. Dylon Villar DO LAB - CHEMISTRY [place] [facility] Organization Address City/State/ZIP Co de Phone Number [facility] [address] [place] [address] * (ABNORMAL) CBC W AUTO DIFFERENTIAL (05/19/2014 5:11 AM [facility]) Only the most recent of4 resultswithin the time period is included. WBC 9.3 4.4 - 10.7 x10^9/L 05/19/2014 5:38 AM [facility] RBC 4.66 3.80 - 5.40 x10^12/L 05/19/2014 5:38 AM [facility] Hemoglobin 13.8 12.0 - 17.6 gm/dL 05/19/2014 5:38 AM [facility] Hematocrit 40.5 35.2 - 51.7 % 05/19/2014 5:38 AM [facility] MCV 86.9 80.7 - 98.3 fl 05/19/2014 5:38 AM [facility] MCH 29.6 26.7 - 34.0 pg 05/19/2014 5:38 AM [facility] MCHC 34.1 30.8 - 35.9 gm/dL 05/19/2014 5:38 AM [facility] Platelet Count 348 153 - 416 x10^9/L 05/19/2014 5:38 AM [facility] RDW-CV 12.8 12.1 - 14.9 % 05/19/2014 5:38 AM [facility] MPV 9.1(L) 9.4 - 12.9 fl 05/19/2014 5:38 AM [facility] Neutrophils % 67.1 44.0 - 73.0 % 05/19/2014 5:38 AM [facility] Lymphocytes % 17.8(L) 20.0 - 43.0 % 05/19/2014 5:38 AM [facility] Monocytes % 8.0 5.0 - 13.0 % 05/19/2014 5:38 AM [facility] Eosinophils % 5.2 0.0 - 6.0 % 05/19/2014 5:38 AM [facility] Basophils % 0.3 0.0 - 2.0 % 05/19/2014 5:38 AM [facility] Immature Granulocytes 1.6(H) 0 - 1 % 05/19/2014 5:38 AM [facility] Neutrophil Absolute 6.25 2.01 - 7.14 x10^9/L 05/19/2014 5:38 AM [facility] Lymphocytes Absolute 1.66 1.07 - 3.94 x10^9/L 05/19/2014 5:38 AM [facility] Monocytes Absolute 0.75 0.26 - 1.07 x10^9/L 05/19/2014 5:38 AM [facility] Eosinophils Absolute 0.48(H) 0 - 0.47 x10^9/L 05/19/2014 5:38 AM [facility] Basophils Absolute 0.03 0 - 0.08 x10^9/L 05/19/2014 5:38 AM [facility] Blood BLOOD SPECIMEN / Unknown Lab Venipuncture / Unknown 05/19/2014 5:11 AM [facility] 05/19/2014 5:27 AM [facility] Dylon Villar DO LAB - HEMATOLOGY ORD ERABLES Performing Organization Address City/State/[facility] Co de Phone Number [facility] [address] [place] [address] * GROSS + MICRO EXAM (STL) (05/17/2014 1:39 PM [facility]) Case Report Surgical Pathology Report Case: [id number] Authorizing Provider: Chun Helm MD Collected: 05/17/2014 01:39 PM Ordering Location: [facility] Received: 05/17/2014 02:23 PM Pathologist: Marlys Meza MD Specimen: Tissue, skin and subcutaneous tissue right thigh 05/21/2014 3:43 PM [facility] Final Diagnosis Skin and soft tissue, right thigh, excision: - Ulceration and subcutaneous abscess KL/vivien 05/21/2014 3:43 PM [facility] Gross Description Received in formalin in a container labeled Gulshan Ness, skin and subcutaneous tissue right thigh. The container holds a 2 x 1.5 x 1 cm mark skin ellipse with attached yellow-mark soft tissue. Sectioning shows a yellow-mark cut surface. Clam Bed Worker sections from the midportion of the specimen are submitted in a cassette labeled A1. DYT/rtc 05/21/2014 3:43 PM [facility] Microscopic Description Histologic sections of the right thigh lesion show ulceration with acute and chronic inflammation and abscess formation. There is no evidence of malignancy. KL/vivien 05/21/2014 3:43 PM [facility] Pathology/Cytolo gy TISSUE SPECIMEN / Unknown 05/17/2014 1:39 PM PLACEMENT DIRECTOR 05/17/2014 2:23 PM PLACEMENT DIRECTOR Comment:unknown Chun Helm MD LAB - PATHOLOGY/CYTO LOGY ORDERABLES Performing Organization Address City/State/[facility] Co de Phone Number [facility] [address] [place] [address] * (ABNORMAL) CULTURE TISSUE+GRAM STAIN (05/17/2014 1:36 PM PLACEMENT DIRECTOR) Culture Heavy growth Staphylococcus aureus (MRSA)(AA) JESSY 05/19/2014 9:14 AM [facility] Gram Stain Heavy (> or = 30 per high power field) White blood cells 05/19/2014 9:14 AM [facility] Gram Stain Moderate Gram positive cocci 05/19/2014 9:14 AM [facility] Microbiology SOFT TISSUE BIOPSY SPECIMEN / Unknown 05/17/2014 1:36 PM PLACEMENT DIRECTOR 05/17/2014 2:17 PM PLACEMENT DIRECTOR Comment:unknown Narrative [facility] - 05/19/2014 9:14 AM [facility] Methicillin Resistant Staphylococci are resistant to [...] - MICROBIOLOGY O ALENA Performing Organization Address City/[facility] Co de Phone Number [facility] [address] * (ABNORMAL) CULTURE ANAEROBE (05/17/2014 1:36 PM PLACEMENT DIRECTOR) Only the most recent of2 resultswithin the time period is included. Culture Heavy growth Prevotella bivia(A) JESSY 05/23/2014 8:27 AM PLACEMENT DIRECTOR [facility] Comment:Beta Lactamase Posit bry Microbiology SOFT TISSUE BIOPSY SPECIMEN / Unknown 05/17/2014 1:36 PM PLACEMENT DIRECTOR 05/17/2014 2:17 PM PLACEMENT DIRECTOR Comment:unknown Chun Helm MD LAB - MICROBIOLOGY O [employer] Performing Organization Address [facility] Co de Phone Number [facility] [address] [place] * (ABNORMAL) CULTURE MRSA (05/15/2014 9:09 PM PLACEMENT DIRECTOR) Culture Growth of Staphylococcus aureus (MRSA)(A) JESSY 05/17/2014 7:35 AM PLACEMENT DIRECTOR [facility] Microbiology SPECIMEN FROM NASAL FOSSAE / Unknown 05/15/2014 9:09 PM PLACEMENT DIRECTOR 05/15/2014 9:16 PM PLACEMENT DIRECTOR Narrative [facility] - 05/17/2014 7:35 AM PLACEMENT DIRECTOR Methicillin Resistant Staphylococci are resistant to all currently available beta-lactam antibiotics with the exception of the newer cephalosporins with anti-MRSA activity. Contact precautions required. 05/17/2014 7:32 AM Shasta Nunez RN notified. Read back and acknowledged results. Evelin Navarro [place]([facility]) Dylon Villar DO LAB - MICROBIOLOGY O RDERABLES [facility] [address] [place] [address], [facility] * (ABNORMAL) CULTURE WOUND+GRAM STAIN (05/15/2014 4:08 PM PLACEMENT DIRECTOR) Culture Moderate Growth Staphylococcus aureus (MRSA)(A) JESSY 05/17/2014 11:24 AM PLACEMENT DIRECTOR [facility] Gram Stain Heavy White blood cells 05/17/2014 11:24 AM [facility] Gram Stain Light Gram positive cocci 05/17/2014 11:24 AM PLACEMENT DIRECTOR [facility] Microbiology SPECIMEN FROM ABSCESS / Unknown 05/15/2014 4:08 PM PLACEMENT DIRECTOR 05/15/2014 4:13 PM PLACEMENT DIRECTOR Narrative [facility]CRO[facility] - 05/17/2014 11:24 AM PLACEMENT DIRECTOR Methicillin Resistant Staphylococci are resistant to all [...] - MICROBIOLOGY O RDERABLES Performing Organization Address [facility] Co de Phone Number [facility] [address] [place] [address], [facility] * CULTURE BLOOD (05/14/2014 10:08 PM PLACEMENT DIRECTOR) Only the most recent of2 resultswithin the time period is included. [facility] Culture No Growth JESSY 05/20/2014 4:54 AM [facility]CRO[facility] Blood PERIPHERAL BLOOD / Unknown Venipuncture / Unknown 05/14/2014 10:08 PM PLACEMENT DIRECTOR 05/14/2014 10:17 PM PLACEMENT DIRECTOR Arcelia Sepulveda PA-C LAB - MICROBIOLOGY O RDJUANCARLOSBLES Performing Organization Address [facility] Co de Phone Number [facility] [address] [place] [address], [facility] * (ABNORMAL) COMPREHENSIVE METABOLIC PANEL (05/14/2014 9:26 PM PLACEMENT DIRECTOR) Pathologist [facility] Glucose 89 74 - 106 mg/dL 05/14/2014 9:54 PM [facility] Sodium 132(L) 136 - 145 mmol/L 05/14/2014 9:54 PM [facility] Potassium 3.1(L) 3.5 - 5.1 mmol/L 05/14/2014 9:54 PM [facility] Chloride 97(L) 98 - 107 mmol/L 05/14/2014 9:54 PM [facility] CO2 30 22 - 31 mmol/L 05/14/2014 9:54 PM [facility] Calcium 8.9 8.5 - 10.1 mg/dL 05/14/2014 9:54 PM [facility] Anion Gap 5 5 - 15 mmol/L 05/14/2014 9:54 PM [facility] BUN 14 7 - 21 mg/dL 05/14/2014 9:54 PM [facility] Creatinine 1.23 0.50 - 1.30 mg/dL 05/14/2014 9:54 PM [facility] eGFR by MDRD >60 >60 mL/min/1.7 3m2 05/14/2014 9:54 PM [facility] eGFR by MDRD >60 >60 mL/min/1.7 3m2 05/14/2014 9:54 PM [facility] Alkaline Phosphatase 107 38 - 126 U/L 05/14/2014 9:54 PM [facility] ALT 23 12 - 78 U/L 05/14/2014 9:54 PM [facility] AST 15 5 - 40 U/L 05/14/2014 9:54 PM [facility] Protein Total 7.9 6.4 - 8.2 gm/dL 05/14/2014 9:54 PM [facility] Albumin 2.8(L) 3.4 - 5.0 gm/dL 05/14/2014 9:54 PM [facility] Bilirubin Total 1.0 0.2 - 1.0 mg/dL 05/14/2014 9:54 PM [facility] Blood BLOOD SPECIMEN / Unknown Venipuncture / Unknown 05/14/2014 9:26 PM PLACEMENT DIRECTOR 05/14/2014 9:35 PM [facility] Arcelia Sepulveda PA-C LAB - CHEMISTRY [place]OS[place] [facility] Organization Address City/State/ZIP Co de Phone Number [facility] [address] [address]
--- OUTSIDE RECORDS SUMMARY | 2024-06-18 19:16 | XMS_ITS | Clinical Summary ---
Author Organization [facility] [employer] Address [address] [place] [address] Care Team Providers Care Cleaner Industrial Name Role Phone Unavailable Primary Care Provider Unavailabl e Source Comments [facility] [employer],non-owned Affiliates and Associated Physician Practices is amultiple site organization consisting of ambulatory clinics and hospital sitesin [place], [place], [place] and [place]. This disclosure is being madepursuant to the Care Everywhere program and may not contain all information available regarding this patient. Last updated 18.[facility] [employer] Allergies No known active allergies Medications * [...] -Ongoing celexa (w baseline QTc) -patient is Adventist and is agreeable to having Spiritual care [...] 37 C (98.6 F) 05/19/2014 8:26 AM [employer] Respiratory Rate 20 01/08/2016 9:31 AM CDT [...] 159 <200 mg/dL 10/02/2014 9:02 AM CDT [facility] Triglycerides 75 <150 mg/dL 10/02/2014 9:02 AM CDT [facility] HDL Cholesterol 50 >40 mg/dL 10/02/2014 9:02 AM T [facility] LDL Calculated 94 <130 mg/dL 10/02/2014 9:02 AM CDT [facility] VLDL Calculated 15 <=30 mg/dL 10/02/2014 9:02 AM T [facility] Chol HDL Ratio 3.2 <4.5 10/02/2014 9:02 AM T [facility] LDL/HDL Ratio 1.9 <5.0 10/02/2014 9:02 AM T [facility] Blood BLOOD SPECIMEN / Unknown Lab Venipuncture / Unknown 10/02/2014 8:39 AM CDT 10/02/2014 8:43 AM CDT Justin Duque MD LAB - CHEMISTRY [place] [facility] Organization Address City/State/ZIP Co de Phone Number [facility] [address] [place] [address] from Last 3 Months or Most Recently Relevant to Health Maintenance Additional Health Concerns Infection Onset Date Last Indicated MRSA Comment:05/17/14 abscess; poa; clinda susp 05/17/2014 05/17/2014 Advance Directives * Full Code (Latest Code Status on File) Date Activated Date Inactivated Comments 05/15/2014 2:03 AM 05/19/2014 3:07 PM
--- OUTSIDE RECORDS SUMMARY | 2024-06-18 19:16 | XMS_ITS | Encounter Summary ---
Author Organization [facility] Healthcare Address [address] [place] [address] Care Team Providers Care Instructor Flying Name Role Phone Jaycob Lerner DO Unavailable Rose Barker Primary Care Provider + Karo Perry MD Unavailable Unknown, Notinfile Unavailable Unavailable Miscellaneous, Not In File Unavailable Unava ilable Encounter Details Date Type Department Care Team (Late st Contact Info) Description 01/12/2023 Telephone [facility] [address] [place] [address] Melvi Nesbitt RN Social History [...] often do you attend chur ch or zoroastrianism services? Never 05/06/2022 Do you belong to any clubs o r organizations such as holiness groups, unions, fraternal or athletic groups, or [...] place to sleep or slept in a custodial (including now)? No 05/06/2022 Sex and Gender Information Value Date Recorded Sex Assigned at Not on file Legal Sex Male 3:56 AM MASH PREPARATORY OPERATOR Gender Identity Male 03/27/2020 2:49 PM MASH PREPARATORY OPERATOR Sexual Orientation Straight 03/27/2020 2: 49 PM MASH PREPARATORY OPERATOR Occupation Industry Job Start Date Job End Date Unemployed Not on file Not on file Not on file documented as of this encounter Plan of Treatment Not on file documented as of this encounter Visit Diagnoses Not on filedocumented in this encounter Care Teams Instructor Flying Relationship Specialty Start Date End Date Rose Barker PA [address] [place] [address] PCP - General Physician Bread Baker 03/02/22 Jaycob Lerner DO [address] [place] [address] Referring Physician Cardiology 03/02/22 Karo Perry MD [id number] [place] [address] Surgeon Cardiothoracic Surgery 04/27/22 Unknown, Notinfile 04/27/22 Miscellaneous, Not In File 06/04/22 documented as of this encounter
--- OUTSIDE RECORDS SUMMARY | 2024-06-18 19:16 | XMS_ITS | Encounter Summary ---
Author Organization [facility] Healthcare Address [address] [place] [address] Care Team Providers Care Wage Hand Name Role Phone Jaycob Lerner DO Unavailable Rose Barker Primary Care Provider + Karo Perry MD Unavailable Unknown, Notinfile Unavailable Unavailable Miscellaneous, Not In File Unavailable Unava ilable Encounter Details Date Type Department Care Team (Late st Contact Info) Description 01/13/2023 Telephone [facility] [address] [place] [address] Enid Batres RN Social History [...] often do you attend chur ch or jain services? Never 05/06/2022 Do you belong to any clubs o r organizations such as shinto groups, unions, fraternal or athletic groups, or [...] place to sleep or slept in a half-way (including now)? No 05/06/2022 Sex and Gender Information Value Date Recorded Sex Assigned at Not on file Legal Sex Male 3:56 AM HUMAN RESOURCES DEPARTMENT SUPERVISOR Gender Identity Male 03/27/2020 2:49 PM HUMAN RESOURCES DEPARTMENT SUPERVISOR Sexual Orientation Straight 03/27/2020 2: 49 PM HUMAN RESOURCES DEPARTMENT SUPERVISOR Occupation Industry Job Start Date Job End Date Unemployed Not on file Not on file Not on file documented as of this encounter Plan of Treatment Not on file documented as of this encounter Visit Diagnoses Not on filedocumented in this encounter Care Teams Wage Hand Relationship Specialty Start Date End Date Rose Barker PA [address] [place] [address] PCP - General Physician Tawer 03/02/22 Jaycob Lerner DO [address] [place] [address] Referring Physician Cardiology 03/02/22 Karo Perry MD [id number] [place] [address] Surgeon Cardiothoracic Surgery 04/27/22 Unknown, Notinfile 04/27/22 Miscellaneous, Not In File 06/04/22 documented as of this encounter
--- OUTSIDE RECORDS SUMMARY | 2024-06-18 19:17 | XMS_ITS | Clinical Summary ---
Author Organization [facility] Address [address] [place] [address] Care Team Providers Care Hot Mill Supervisor Name Role Phone Unavailable Primary Care Provider [...]
--- OUTSIDE RECORDS SUMMARY | 2024-06-18 19:17 | XMS_ITS | Clinical Summary ---
Author Organization [facility] Address [address] [place] [address] Care Team Providers Care Burr Mill Operator Name Role Phone Jaycob Lerner DO Unavailable [...] 03/12/2023 Assessment & Plan (06/06/2023 12:53 AM CYLINDER LOADER): Risks, benefits and alternatives were discussed. Risks [...] visit. Assessment & Plan (07/10/2022 10:13 AM CYLINDER LOADER): - Plan to continue IV Cefepime at [...] concerns Assessment & Plan (06/12/2022 12:55 PM CYLINDER LOADER): - Plan to continue IV Cefepime at [...] concerns Assessment & Plan (06/02/2022 11:06 AM CYLINDER LOADER): - Appreciate ID consult 05/20 w/ sign [...] c/b retroperitoneal bleed and afib). Discharged to [facility] 04/29/2022 and signed out AMA 05/02. He fell at home and found to have R iliacus and body wall hematoma that had slightly decreased from 04/2022 scan. Transferred to [facility] 05/04. ....Plan will be for at least 6 weeks of cefepime and consider a PET as outpatient to evaluate if need for suppression. RUBINA done 05/22 (result pending). Follow Up Plan: fax results to [phone], follow up with Dr. Maryanne KNOX in 2 weeks, After discharge additional questions can be directed to the clinic at [phone], and Patient has been educated about the risks and benefits of IV antibiotics (OPAT) Assessment & Plan (05/21/2022 12:17 PM CYLINDER LOADER): 05/18 Blood cultures positive PSEUDOMONAS AERUGINOSA 2 [...] vegetations Assessment & Plan (05/20/2022 12:42 PM CYLINDER LOADER): 05/18 Blood cultures positive PSEUDOMONAS AERUGINOSA 2 of 2 bottles sensitive to cefepime ID consult placed 05/19 - waiting on input but for now continue cefepime and vancomycin Monitor vanc trough Daily blood cultures until negative 48 hours. Depression 05/20/2022 Assessment & Plan (05/22/2022 8:56 AM CYLINDER LOADER): -Patient's mood is very low given long hospitalization and now bacteremia. (History of tearful & feeling depressed) -Ongoing celexa (w baseline QTc) -patient is Latter Day and is agreeable to having Spiritual care support Assessment & Plan (05/21/2022 12:29 PM CYLINDER LOADER): Patient's mood is very low given long hospitalization and now bacteremia. He is tearful this morning. He reports feeling depressed. - started celexa - check baseline QTc - patient is Latter Day and is agreeable to having Spiritual care come and see him Assessment & Plan (05/20/2022 12:44 PM CYLINDER LOADER): Patient's mood is very low given long hospitalization and now bacteremia. He is tearful this morning. He reports feeling depressed. - will start celexa - check baseline QTc - patient is Latter Day and is agreeable to having Spiritual care come and see him Pulmonary embolism 05/18/2022 Assessment & Plan (06/03/2022 10:43 AM CYLINDER LOADER): -CT scan-C/A/P- (05/18) with new finding of PE - subsegmental left pulmonary embolism. There is no evidence of right heart strain. -LE venous duplex (05/19) positive right calf DVT -Goal INR 2.0-3.0 -Last night, INR = 2.2 Assessment & Plan (05/21/2022 12:36 PM CYLINDER LOADER): CT scan 05/18 with new finding of PE - subsegmental left pulmonary embolism. There is no evidence of right heart strain. / duplex LE, positive right calf DVT Started on low PTT heparin gtt nomogram and coumadin Continue coumadin Assessment & Plan (05/20/2022 12:26 PM CYLINDER LOADER): CT scan 05/18 with new finding of PE - subsegmental left pulmonary embolism. There is no evidence of right heart strain. / duplex LE, positive right calf DVT Started on low PTT heparin gtt and coumadin Continue coumadin Atrial fibrillation (CMS/HCC) 04/18/2022 Assessment & Plan (06/03/2022 10:42 AM CYLINDER LOADER): -Most likely AF with the recent surgery 03/31/22 -Continues on Coumadin & amiodarone therapy (200 mg daily) -Continues in NSR per telemetry Assessment & Plan (05/21/2022 12:12 PM CYLINDER LOADER): Most likely AF with the recent surgery 03/31/22 Assessment & Plan (05/12/2022 8:04 AM CYLINDER LOADER): Most likely AF with the recent surgery 03/31/22 Assessment & Plan (04/28/2022 4:01 PM CYLINDER LOADER): -developed during his post-op stay -Received DCCV/RUBINA on 04/10 -Continue daily amiodarone, at present, plus BB therapy -No longer on anti-coagulation due to recent retroperitoneal bleed - not planning to restart -currently SR -TTE no evidence of thrombi Assessment & Plan (04/24/2022 3:54 PM CYLINDER LOADER): -developed during his post-op stay -Received DCCV/RUBINA on 04/10 -Continue daily amiodarone, at present, plus BB therapy -No longer on anti-coagulation due to recent retroperitoneal bleed - not planning on restarting -currently SR -ordered TTE to r/o LA thrombus Anemia 04/18/2022 Assessment & Plan (05/26/2022 8:29 AM CYLINDER LOADER): Expected, due to recent surgery (Post-op ABLA) Labs now switched to twice weekly, during hospital stay Consider transfusing for Hgb < 7 & symptomatic Expect slow uptrend Assessment & Plan (04/28/2022 4:01 PM CYLINDER LOADER): Expected, due to recent redo sternotomy (cardiac surgery) 04/20 patient with retroperitoneal hematoma s/p fall - imaging without areas of active bleeding Has required multiple units of PRBC with last unit given morning of 04/23 with appropriate response to unit Consider transfusion for Hgb < 7 and symptomatic Daily CBC, while inpatient Expect slow uptrend Continue PPI Assessment & Plan (04/24/2022 3:43 PM CYLINDER LOADER): Expected, due to recent redo sternotomy (cardiac [...] 04/18/2022 Assessment & Plan (06/03/2022 10:42 AM CYLINDER LOADER): -Ongoing coumadin therapy -Pt has Rt LE DVT (per duplex) and PE (per recent CT scan) -Goal INR ~ 2.0-3.0 -Last night, INR = 2.2 on stable dose of coumadin 8 mg -Heparin drip has been discontinued per Dr. Perry Assessment & Plan (04/25/2022 9:20 AM CYLINDER LOADER): Due to retroperitoneal bleeding coumadin therapy was stopped, not planning to restart resolved Assessment & Plan (04/24/2022 3:47 PM CYLINDER LOADER): Due to retroperitoneal bleeding coumadin therapy was stopped, not planning to restart resolved Acute on chronic renal failure 03/29/2022 Assessment & Plan (06/03/2022 10:42 AM CYLINDER LOADER): -Avoiding nephrotoxins, not on lasix -Creat peaked at 1.68 during past admission - creatinine up to 1.9 last night again, hold diuretics, repeat BMP in am Looks like new norm is going to be around ~1.6-1.8 -Stopped lasix related creatinine increase and ~ 9 kg below pre-admission weight Assessment & Plan (05/21/2022 12:29 PM CYLINDER LOADER): POA Creat peaked at 1.68 during past admission Cr 1.62 Decrease lasix to daily Cbc, BMP daily Will continue to monitor Avoid nephrotoxins Assessment & Plan (05/20/2022 12:06 PM CYLINDER LOADER): POA Creat peaked at 1.68 during past admission, most recent 1.31 Cr 1.53 Continue lasix bid Cbc, BMP daily Will continue to monitor Avoid nephrotoxins 05/18 NA 128 last night, FW restrict 1L, he had trank almost 2L of soda the day before and NA was 127 Na 135 on AML Assessment & Plan (04/28/2022 4:00 PM CYLINDER LOADER): Patient carries a history of CKD. No recent labs here On admission - Cr 03/2020 was 1.37 Appears to have developed FOZIA on CKD Cr peaked on 04/20 at 3.09 - continues to down trend with Cr 1.45 on AML Avoiding nephro-toxics Daily BMP, while inpatient Continue I &O, daily weights Lasix daily Assessment & Plan (04/24/2022 3:40 PM CYLINDER LOADER): Patient carries a history of CKD. No recent labs here On admission - Cr 03/2020 was 1.37 Appears to have developed FOZIA on CKD Cr peaked on 04/20 at 3.09 - continues to down trend with Cr 1.49 on AML Avoiding nephro-toxics Daily BMP, while inpatient Continue I &O, daily weights Assessment & Plan (03/29/2022 3:40 PM CYLINDER LOADER): Patient carries a history of CKD. No recent labs here - Cr 03/2020 was 1.37 -hold Lisinopril-HCT in lizette-operative setting -hydration with IVFs of NS at 75mL/hr in anticipation of contrast load for testing Coronary artery disease 03/19/2022 Overview (03/24/2022): Added automatically from request for surgery [id number] Assessment & Plan (04/25/2022 9:20 AM CYLINDER LOADER): See thoracic aortic aneurym problem, above No benjamin, related to elevated BUN/creatinine Assessment & Plan (04/18/2022 2:36 PM CYLINDER LOADER): See thoracic aortic aneurym problem, above No benjamin, related to elevated BUN/creatinine Primary osteoarthritis of right hip 03/12/2020 Overview (03/12/2020): Added automatically from request for surgery [id number] Hypertension 02/20/2020 Assessment & Plan (12/07/2022 8:42 AM CDT): - Referral placed to Cardiology, he states that he does not have a wine blender. BP initially was elevated on arrival. He has stopped taking some of his antihypertensive medications. He would like to establish care. Assessment & Plan (06/03/2022 10:41 AM CYLINDER LOADER): Ongoing daily amlodipine and BID coreg SBP stable at 105-116/ Assessment & Plan (04/25/2022 9:20 AM CYLINDER LOADER): -Home meds: coreg and lisinopril-HCT -continue coreg Assessment & Plan (04/24/2022 3:47 PM CYLINDER LOADER): -Home meds: coreg and lisinopril-HCT -continue coreg Assessment & Plan (03/29/2022 3:37 PM CYLINDER LOADER): Home meds: coreg and lisinopril-HCT -continue home coreg -hold lisinopril-HCT in pre-op setting Disorder of lipid metabolism 02/20/2020 Primary osteoarthritis of left hip 12/21/2019 Overview (12/21/2019): Added automatically from request for surgery [id number] Chronic hepatitis C virus infection (CMS/HCC) Assessment & Plan (06/12/2022 1:00 PM CYLINDER LOADER): - Patient reports that he has not [...] up. Assessment & Plan (05/22/2022 8:54 AM CYLINDER LOADER): ID note (05/20) with following included: Continue outpatient follow-up with Hepatology who is taking the lead on hepatitis C treatment. Assessment & Plan (04/25/2022 9:20 AM CYLINDER LOADER): Patient is set to start treatment for Hep C in the next 2 weeks -follows here for Hep C Assessment & Plan (03/30/2022 8:38 AM CYLINDER LOADER): Patient is set to start treatment for Hep C in the next 2 weeks -follows here for Hep C Assessment & Plan (03/29/2022 3:37 PM CYLINDER LOADER): Patient is set to start treatment for [...] 05/30/2015 Assessment & Plan (06/03/2022 10:44 AM CYLINDER LOADER): -Post-op from 03/31/2022 for: redo sternotomy, replacement [...] june Assessment & Plan (05/21/2022 12:38 PM CYLINDER LOADER): 03/31/2022 for redo sternotomy, replacement of the [...] denials in CM notes - need for skilled nursing IV antibiotic now indicated, will look for LTACH Assessment & Plan (05/19/2022 8:47 AM CYLINDER LOADER): 03/31/2022 for redo sternotomy, replacement of the [...] notes Assessment & Plan (04/25/2022 9:21 AM CYLINDER LOADER): -s/p AVR (27 bio), Ascending, shy-arch repl, [...] planning Assessment & Plan (04/24/2022 3:57 PM CYLINDER LOADER): -s/p AVR (27 bio), Ascending, shy-arch repl, [...] 09/19/2014 Assessment & Plan (05/30/2022 10:05 AM CYLINDER LOADER): -Pt reported decreased sensation in RLE- unchanged [...] patient with the contact information for the [facility] EMG lab below: --Electromyography Studies (EMG) - [phone] - Neurology will arrange outpatient followup. Please provide the contact information for the Neurology outpatient clinic below. The patient will be seeing Dr. Guan. -Neurology - [facility] [address], [address] [place] [address] Assessment & Plan (05/21/2022 12:36 PM CYLINDER LOADER): POA Pt began to complain of lack [...] planning Assessment & Plan (05/20/2022 12:24 PM CYLINDER LOADER): POA Pt began to complain of lack [...] 06/02/2022 Assessment & Plan (05/31/2022 10:16 AM CYLINDER LOADER): - Most recent NA 134 -Continue FWFR, per oral fluid restrictions -Twice weekly BMP, at present Assessment & Plan (05/21/2022 12:30 PM CYLINDER LOADER): 05/18 NA 128 last night, FW restrict 1L, he had drank almost 2L of soda the day before and NA was 127 Na 134 on AML Continue FWR Monitor daily BMP Fever 05/18/2022 05/25/2022 Assessment & Plan (05/23/2022 9:39 AM CYLINDER LOADER): -Patient shivering on morning rounds 05/18 with temp up to 101.3 -Initial checks: Ua (-) -see bacteremia problem -Continues afebrile at present -Consider resolving this problem -dc daily blood cultures per ID, -findings on RUBINA discussed with Dr Perry, suture vs vegetation, she feels that its a suture, ID notified Assessment & Plan (05/20/2022 12:24 PM CYLINDER LOADER): Patient shivering on morning rounds 05/18 with [...] 04/24/20222022 Assessment & Plan (05/26/2022 8:49 AM CYLINDER LOADER): -POA- occurred during last admission -CTA at [...] problem Assessment & Plan (05/21/2022 12:37 PM CYLINDER LOADER): POA- occurred during last admission CTA at [...] stable Assessment & Plan (05/20/2022 12:33 PM CYLINDER LOADER): POA- occurred during last admission CTA at [...] stable Assessment & Plan (04/26/2022 10:20 AM CYLINDER LOADER): S/p fall on 04/20 with retroperitoneal bleed [...] directed Assessment & Plan (04/24/2022 3:54 PM CYLINDER LOADER): S/p fall on 04/20 with retroperitoneal bleed - imaging with no areas of active bleeding Stopped heparin drip and coumadin, not planning to restart anti-coagulation Has required multiple units of PRBC with last unit given morning of 04/23 with appropriate response to unit Leukocytosis 04/20/2022 04/25/2022 Assessment & Plan (04/25/2022 9:21 AM CYLINDER LOADER): Empiric ceftriaxone ended WBC wnl Afebrile Cultures were negative CBC daily Assessment & Plan (04/24/2022 3:49 PM CYLINDER LOADER): Empiric ceftriaxone ends today WBC wnl Afebrile Cultures were negative CBC daily Pain 04/18/2022 04/25/2022 Assessment & Plan (04/24/2022 3:49 PM CYLINDER LOADER): Expected, due to recent surgery per redo sternotomy Ongoing PRN tylenol which he has not taken past 24 hours Ascending aortic aneurysm, u nspecified whether ruptured 03/29/2022 03/29/2022 Aortic aneurysm without rupture 03/29/2022 03/29/2022 Infectious viral hepatitis 03/29/2022 1 05/29/2021 Aneurysm of ascending aorta without rupture 03/19/2022 04/18/2022 Overview (03/24/2022): Added automatically from request for surgery [id number] Assessment & Plan (03/30/2022 8:38 AM CYLINDER LOADER): History of emergent type A aortic dissection [...] setting Assessment & Plan (03/29/2022 3:33 PM CYLINDER LOADER): History of emergent type A aortic dissection [...] Added automatically from req uest for surgery [id number] Fever 05/18/2022 Edema 09/19/2014 Retroperitoneal bleed 04/24/2022 [...] often do you attend chur ch or baptist services? Never 05/06/2022 Do you belong to any clubs o r organizations such as mosque groups, unions, fraternal or athletic groups, or [...] No 05/06/2022 Housing Stability Vital Sign Answer Jamse e Recorded In the last 12 months, [...] on file Legal Sex Male 3:56 AM CYLINDER LOADER Gender Identity Male 03/27/2020 2:49 PM CYLINDER LOADER Sexual Orientation Straight 03/27/2020 2: 49 PM CYLINDER LOADER Occupation Industry Job Start Date Job End [...] history exists Medical Devices Implanted Type Area Lombardi Developer Device Identifier Shelf Expiration Date Model / Serial / Lot Terumo Cardio Vascular Gelweave 8mm 30cm Suture Retention Unique Hydrolyzable Abdomen [id number] - [id number] - [id number] Implanted:Qty: 1 on 03/31/2022 by Bhavin Bennett MD at [facility] Graft N/A: Heart [employer] [id number] 10/07/2024 [id number] / [id number] / [id number] Ter[employer] Gelweave 30mm 30cm Suture Retention Unique Hydrolyzable Abdomen [id number] - [id number] - [id number] Implanted:Qty: 1 on 03/31/2022 by Karo Perry MD at [facility] Graft N/A: Heart [employer] [id number] 12/07/2024 [id number] / [id number] / [id number] Ter[employer] Gelweave 10mm 30cm Suture Retention Unique Hydrolyzable Abdomen 608144 - [id number] - [id number] Implanted:Qty: 1 on 03/31/2022 by Karo Perry MD at [facility] Graft N/A: Aorta [employer] [id number] 03/09/2024 [id number] / [id number] / [id number] [employer] [id number] 56mm Limit 4 Hole Hip F Hemisphere Offset Shell Acetabular - [id number] - [id number] Implanted:Qty: 1 on 01/29/2020 by Geni March MD at [facility] Left: Hip [employer] 11/28/2029 [id number] / [id number] / [employer] [id number] Trilogy 6.5mm 40mm Self Tap Hip Acetabular Cortical Screw Bone - [id number] Implanted:Qty: 1 on 01/29/2020 by Geni March MD at [facility] Left: Hip [employer] [id number] 10/07/2028 [id number] / / [id number] [employer] [id number] 36mm Lumen Hip F Liner Acetabular Longevity Sterile Latex Free - [id number] - [id number] Implanted:Qty: 1 on 01/29/2020 by Geni March MD at [facility] Left: Hip [employer] 11/26/2024 / / [employer] [id number] Trilogy 6.5mm 20mm Self Tap Screw Bone - [id number] Implanted:Qty: 1 on 01/29/2020 by Geni March MD at [facility] Left: Hip [employer] [id number] 09/06/2024 [id number] / / [id number] [employer] [id number] 16.25mm 129mm Primary Hip 47mm Taper Straight Extended Offset - S0 - [id number] Implanted:Qty: 1 on 01/29/2020 by Geni March MD at [facility] Left: Hip [employer] [id number] 06/09/2028 [id number] / 0 / [id number] [employer] [id number] 36mm Hip Acetabular +7mm 12/14 Xl Head Femoral Biolox Delta - S0 - [id number] Implanted:Qty: 1 on 01/29/2020 by Geni March MD at [facility] Left: Hip [employer] 06/09/2028 [id number] / 0 / [id number] [employer] [id number] Trilogy 6.5mm 30mm Self Tap Acetabular Cortical Screw Bone - [id number] Implanted:Qty: 1 on 04/08/2020 by Geni March MD at [facility] Right: Hip [employer] [id number] 11/22/2029 [id number] / / [id number] [employer] [id number] M/L 15mm 129mm 42mm Primary Hip 51mm Extend Offset Straight Taper - [id number] Implanted:Qty: 1 on 04/08/2020 by Geni March MD at [facility] Right: Hip [employer] [id number] 07/08/2027 [id number] / / [id number] [employer] [id number] 36mm Hip Acetabular +7mm 12/14 Xl Head Femoral Biolox Delta - [id number] Implanted:Qty: 1 on 04/08/2020 by Geni March MD at [facility] Right: Hip [employer] [id number] 10/07/2028 [id number] / / [id number] [employer] [id number] 56mm Limit 4 Hole Hip F Hemisphere Offset Shell Acetabular - [id number] Implanted:Qty: 1 on 04/08/2020 by Geni March MD at [facility] Right: Hip [employer] 11/15/2029 [id number] / / [id number] [employer] [id number] 36mm Lumen Hip F Liner Acetabular Longevity Sterile Latex Free - [id number] Implanted:Qty: 1 on 04/08/2020 by Geni March MD at [facility] Right: Hip [employer] 06/09/2024 [id number] / / [id number] [employer] [id number] Trilogy 6.5mm 40mm Self Tap Hip Acetabular Cortical Screw Bone - [id number] Implanted:Qty: 1 on 04/08/2020 by Geni March MD at [facility] Right: Hip [employer] [id number] 12/20/2029 [id number] / / [id number] [employer] Per[employer] 6x6in Patch Thk1.65mm [place] [employer] Ptfe Sterile Latex Free 093784 - [id number] Implanted:Qty: 1 on 03/31/2022 by Bhavin Bennett MD at [facility] [employer] 10/04/2026 [id number] / / [employer] Inspiris Resilia Leaflet Sewing Ring 27mm Valve Aortic Bovine [id number] - [id number] - [id number] Implanted:Qty: 1 on 03/31/2022 by Karo Perry MD at [facility] N/A: Aortic Valve [employer] [id number] 11/05/2025 [id number] / [id number] / Aortic Heart Valve-03/31/2022 Implanted:2021 (Quantity not on file) Aorta [employer] RESILIA - SIZE 27MM [id number] / [id number] / Description:Inspiris Resilia Heart Valve Prosthesis, [employer], [email or web address] Procedures Procedure Name Priority Date/Time Associated Diagnosis Comments HEPATITIS C RNA, QUANTITATIVE, PCR Routine 12/15/2022 9:25 AM CDT Chronic hepatitis C without hepatic coma (CMS/HCC) (HCC) from Last 3 Months or Most Recently Relevant to Health Maintenance Results * Hepatitis C (HCV) RNA PCR, quantitative (12/15/2022 9:25 AM CDT) [facility] HCV RNA IU/mL HCV Not Detected [...] PM CDT Performed at: 01 - [facility] [address] [id number] Psychiatric Np: Luzmaria Moody MD, Phone: [phone] Karla Monroe NP LAB MICROBIOLOGY - GENER AL ORDERABLES Edited Result - Final [facility] - 01 from Last 3 Months or Most Recently Relevant to Health Maintenance Insurance [facility] [place] [place] [address] [facility] Advance Directives For more information, please contact: [phone] * Full Code (Latest Code Status on [...] 12:24 PM 01/30/2020 10:07 PM Care Teams [employer] Operator Relationship Specialty Start Date End Date Rose Barker PA [address] [place] [address] PCP - General Physician Cardiopulmonary Specialist 03/02/22 Jaycob Lerner DO [address] [place] [address] Referring Physician Cardiology 03/02/22 Karo Perry MD [id number] [place] [address] Surgeon Cardiothoracic Surgery 04/27/22 Unknown, Notinfile 04/27/22 Miscellaneous, Not In File 06/04/22
--- OUTSIDE RECORDS SUMMARY | 2024-06-18 19:17 | XMS_ITS | Referral Summary ---
Author Organization [facility] Address [address] [place] [address] Care Team Providers Care Slunk Skin Curer Name Role Phone Jaycob Lerner DO Unavailable [phone] Rose Barker Primary Care Provider + Karo [...] 03/12/2023 Assessment & Plan (06/06/2023 12:53 AM LONGSHORE EQUIPMENT OPERATOR): Risks, benefits and alternatives were discussed. Risks [...] have attempted to reach out to Rose Bakrer NP with no success. He is scheduled [...] visit. Assessment & Plan (07/10/2022 10:13 AM LONGSHORE EQUIPMENT OPERATOR): - Plan to continue IV Cefepime at [...] concerns Assessment & Plan (06/12/2022 12:55 PM LONGSHORE EQUIPMENT OPERATOR): - Plan to continue IV Cefepime at [...] concerns Assessment & Plan (06/02/2022 11:06 AM LONGSHORE EQUIPMENT OPERATOR): - Appreciate ID consult 05/20 w/ sign [...] c/b retroperitoneal bleed and afib). Discharged to [facility] 04/29/2022 and signed out AMA 05/02. He fell at home and found to have R iliacus and body wall hematoma that had slightly decreased from 04/2022 scan. Transferred to [facility] 05/04. ....Plan will be for at least 6 weeks of cefepime and consider a PET as outpatient to evaluate if need for suppression. RUBINA done 05/22 (result pending). Follow Up Plan: fax results to [phone], follow up with Dr. Maryanne KNOX in 2 weeks, After discharge additional questions can be directed to the clinic at [phone], and Patient has been educated about the risks and benefits of IV antibiotics (OPAT) Assessment & Plan (05/21/2022 12:17 PM LONGSHORE EQUIPMENT OPERATOR): 05/18 Blood cultures positive PSEUDOMONAS AERUGINOSA 2 [...] vegetations Assessment & Plan (05/20/2022 12:42 PM LONGSHORE EQUIPMENT OPERATOR): 05/18 Blood cultures positive PSEUDOMONAS AERUGINOSA 2 of 2 bottles sensitive to cefepime ID consult placed 05/19 - waiting on input but for now continue cefepime and vancomycin Monitor vanc trough Daily blood cultures until negative 48 hours. Depression 05/20/2022 Assessment & Plan (05/22/2022 8:56 AM LONGSHORE EQUIPMENT OPERATOR): -Patient's mood is very low given long hospitalization and now bacteremia. (History of tearful & feeling depressed) -Ongoing celexa (w baseline QTc) -patient is Episcopalian and is agreeable to having Spiritual care support Assessment & Plan (05/21/2022 12:29 PM LONGSHORE EQUIPMENT OPERATOR): Patient's mood is very low given long hospitalization and now bacteremia. He is tearful this morning. He reports feeling depressed. - started celexa - check baseline QTc - patient is Episcopalian and is agreeable to having Spiritual care come and see him Assessment & Plan (05/20/2022 12:44 PM LONGSHORE EQUIPMENT OPERATOR): Patient's mood is very low given long hospitalization and now bacteremia. He is tearful this morning. He reports feeling depressed. - will start celexa - check baseline QTc - patient is Episcopalian and is agreeable to having Spiritual care come and see him Pulmonary embolism 05/18/2022 Assessment & Plan (06/03/2022 10:43 AM LONGSHORE EQUIPMENT OPERATOR): -CT scan-C/A/P- (05/18) with new finding of PE - subsegmental left pulmonary embolism. There is no evidence of right heart strain. -LE venous duplex (05/19) positive right calf DVT -Goal INR 2.0-3.0 -Last night, INR = 2.2 Assessment & Plan (05/21/2022 12:36 PM LONGSHORE EQUIPMENT OPERATOR): CT scan 05/18 with new finding of PE - subsegmental left pulmonary embolism. There is no evidence of right heart strain. / duplex LE, positive right calf DVT Started on low PTT heparin gtt nomogram and coumadin Continue coumadin Assessment & Plan (05/20/2022 12:26 PM LONGSHORE EQUIPMENT OPERATOR): CT scan 05/18 with new finding of PE - subsegmental left pulmonary embolism. There is no evidence of right heart strain. / duplex LE, positive right calf DVT Started on low PTT heparin gtt and coumadin Continue coumadin Atrial fibrillation (CMS/HCC) 04/18/2022 Assessment & Plan (06/03/2022 10:42 AM LONGSHORE EQUIPMENT OPERATOR): -Most likely AF with the recent surgery 03/31/22 -Continues on Coumadin & amiodarone therapy (200 mg daily) -Continues in NSR per telemetry Assessment & Plan (05/21/2022 12:12 PM LONGSHORE EQUIPMENT OPERATOR): Most likely AF with the recent surgery 03/31/22 Assessment & Plan (05/12/2022 8:04 AM LONGSHORE EQUIPMENT OPERATOR): Most likely AF with the recent surgery 03/31/22 Assessment & Plan (04/28/2022 4:01 PM LONGSHORE EQUIPMENT OPERATOR): -developed during his post-op stay -Received DCCV/RUBINA on 04/10 -Continue daily amiodarone, at present, plus BB therapy -No longer on anti-coagulation due to recent retroperitoneal bleed - not planning to restart -currently SR -TTE no evidence of thrombi Assessment & Plan (04/24/2022 3:54 PM LONGSHORE EQUIPMENT OPERATOR): -developed during his post-op stay -Received DCCV/RUBINA on 04/10 -Continue daily amiodarone, at present, plus BB therapy -No longer on anti-coagulation due to recent retroperitoneal bleed - not planning on restarting -currently SR -ordered TTE to r/o LA thrombus Anemia 04/18/2022 Assessment & Plan (05/26/2022 8:29 AM LONGSHORE EQUIPMENT OPERATOR): Expected, due to recent surgery (Post-op ABLA) Labs now switched to twice weekly, during hospital stay Consider transfusing for Hgb < 7 & symptomatic Expect slow uptrend Assessment & Plan (04/28/2022 4:01 PM LONGSHORE EQUIPMENT OPERATOR): Expected, due to recent redo sternotomy (cardiac surgery) 04/20 patient with retroperitoneal hematoma s/p fall - imaging without areas of active bleeding Has required multiple units of PRBC with last unit given morning of 04/23 with appropriate response to unit Consider transfusion for Hgb < 7 and symptomatic Daily CBC, while inpatient Expect slow uptrend Continue PPI Assessment & Plan (04/24/2022 3:43 PM LONGSHORE EQUIPMENT OPERATOR): Expected, due to recent redo sternotomy (cardiac [...] 04/18/2022 Assessment & Plan (06/03/2022 10:42 AM LONGSHORE EQUIPMENT OPERATOR): -Ongoing coumadin therapy -Pt has Rt LE DVT (per duplex) and PE (per recent CT scan) -Goal INR ~ 2.0-3.0 -Last night, INR = 2.2 on stable dose of coumadin 8 mg -Heparin drip has been discontinued per Dr. Perry Assessment & Plan (04/25/2022 9:20 AM LONGSHORE EQUIPMENT OPERATOR): Due to retroperitoneal bleeding coumadin therapy was stopped, not planning to restart resolved Assessment & Plan (04/24/2022 3:47 PM LONGSHORE EQUIPMENT OPERATOR): Due to retroperitoneal bleeding coumadin therapy was stopped, not planning to restart resolved Acute on chronic renal failure 03/29/2022 Assessment & Plan (06/03/2022 10:42 AM LONGSHORE EQUIPMENT OPERATOR): -Avoiding nephrotoxins, not on lasix -Creat peaked at 1.68 during past admission - creatinine up to 1.9 last night again, hold diuretics, repeat BMP in am Looks like new norm is going to be around ~1.6-1.8 -Stopped lasix related creatinine increase and ~ 9 kg below pre-admission weight Assessment & Plan (05/21/2022 12:29 PM LONGSHORE EQUIPMENT OPERATOR): POA Creat peaked at 1.68 during past admission Cr 1.62 Decrease lasix to daily Cbc, BMP daily Will continue to monitor Avoid nephrotoxins Assessment & Plan (05/20/2022 12:06 PM LONGSHORE EQUIPMENT OPERATOR): POA Creat peaked at 1.68 during past admission, most recent 1.31 Cr 1.53 Continue lasix bid Cbc, BMP daily Will continue to monitor Avoid nephrotoxins 05/18 NA 128 last night, FW restrict 1L, he had trank almost 2L of soda the day before and NA was 127 Na 135 on AML Assessment & Plan (04/28/2022 4:00 PM LONGSHORE EQUIPMENT OPERATOR): Patient carries a history of CKD. No recent labs here On admission - Cr 03/2020 was 1.37 Appears to have developed FOZIA on CKD Cr peaked on 04/20 at 3.09 - continues to down trend with Cr 1.45 on AML Avoiding nephro-toxics Daily BMP, while inpatient Continue I &O, daily weights Lasix daily Assessment & Plan (04/24/2022 3:40 PM LONGSHORE EQUIPMENT OPERATOR): Patient carries a history of CKD. No recent labs here On admission - Cr 03/2020 was 1.37 Appears to have developed FOZIA on CKD Cr peaked on 04/20 at 3.09 - continues to down trend with Cr 1.49 on AML Avoiding nephro-toxics Daily BMP, while inpatient Continue I &O, daily weights Assessment & Plan (03/29/2022 3:40 PM LONGSHORE EQUIPMENT OPERATOR): Patient carries a history of CKD. No recent labs here - Cr 03/2020 was 1.37 -hold Lisinopril-HCT in lizette-operative setting -hydration with IVFs of NS at 75mL/hr in anticipation of contrast load for testing Coronary artery disease 03/19/2022 Overview (03/24/2022): Added automatically from request for surgery [id number] Assessment & Plan (04/25/2022 9:20 AM LONGSHORE EQUIPMENT OPERATOR): See thoracic aortic aneurym problem, above No benjamin, related to elevated BUN/creatinine Assessment & Plan (04/18/2022 2:36 PM LONGSHORE EQUIPMENT OPERATOR): See thoracic aortic aneurym problem, above No benjamin, related to elevated BUN/creatinine Primary osteoarthritis of right hip 03/12/2020 Overview (03/12/2020): Added automatically from request for surgery [id number] Hypertension 02/20/2020 Assessment & Plan (12/07/2022 8:42 AM CDT): - Referral placed to Cardiology, 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 BP initially was elevated on arrival. He has stopped taking some of his antihypertensive medications. He would like to establish care. Assessment & Plan (06/03/2022 10:41 AM LONGSHORE EQUIPMENT OPERATOR): Ongoing daily amlodipine and BID coreg SBP stable at 105-116/ Assessment & Plan (04/25/2022 9:20 AM LONGSHORE EQUIPMENT OPERATOR): -Home meds: coreg and lisinopril-HCT -continue coreg Assessment & Plan (04/24/2022 3:47 PM LONGSHORE EQUIPMENT OPERATOR): -Home meds: coreg and lisinopril-HCT -continue coreg Assessment & Plan (03/29/2022 3:37 PM LONGSHORE EQUIPMENT OPERATOR): Home meds: coreg and lisinopril-HCT -continue home coreg -hold lisinopril-HCT in pre-op setting Disorder of lipid metabolism 02/20/2020 Primary osteoarthritis of left hip 12/21/2019 Overview (12/21/2019): Added automatically from request for surgery [id number] Chronic hepatitis C virus infection (CMS/HCC) Assessment & Plan (06/12/2022 1:00 PM LONGSHORE EQUIPMENT OPERATOR): - Patient reports that he has not [...] up. Assessment & Plan (05/22/2022 8:54 AM LONGSHORE EQUIPMENT OPERATOR): ID note (05/20) with following included: Continue outpatient follow-up with Hepatology who is taking the lead on hepatitis C treatment. Assessment & Plan (04/25/2022 9:20 AM LONGSHORE EQUIPMENT OPERATOR): Patient is set to start treatment for Hep C in the next 2 weeks -follows here for Hep C Assessment & Plan (03/30/2022 8:38 AM LONGSHORE EQUIPMENT OPERATOR): Patient is set to start treatment for Hep C in the next 2 weeks -follows here for Hep C Assessment & Plan (03/29/2022 3:37 PM LONGSHORE EQUIPMENT OPERATOR): Patient is set to start treatment for [...] 05/30/2015 Assessment & Plan (06/03/2022 10:44 AM LONGSHORE EQUIPMENT OPERATOR): -Post-op from 03/31/2022 for: redo sternotomy, replacement [...] june Assessment & Plan (05/21/2022 12:38 PM LONGSHORE EQUIPMENT OPERATOR): 03/31/2022 for redo sternotomy, replacement of the [...] denials in CM notes - need for longterm IV antibiotic now indicated, will look for LTACH Assessment & Plan (05/19/2022 8:47 AM LONGSHORE EQUIPMENT OPERATOR): 03/31/2022 for redo sternotomy, replacement of the [...] notes Assessment & Plan (04/25/2022 9:21 AM LONGSHORE EQUIPMENT OPERATOR): -s/p AVR (27 bio), Ascending, shy-arch repl, [...] planning Assessment & Plan (04/24/2022 3:57 PM LONGSHORE EQUIPMENT OPERATOR): -s/p AVR (27 bio), Ascending, shy-arch repl, [...] 09/19/2014 Assessment & Plan (05/30/2022 10:05 AM LONGSHORE EQUIPMENT OPERATOR): -Pt reported decreased sensation in RLE- unchanged [...] patient with the contact information for the [facility] EMG lab below: --Electromyography Studies (EMG) - [phone] - Neurology will arrange outpatient followup. Please provide the contact information for the Neurology outpatient clinic below. The patient will be seeing Dr. Guan. -Neurology - [facility] [address] [place] [address] Assessment & Plan (05/21/2022 12:36 PM LONGSHORE EQUIPMENT OPERATOR): POA Pt began to complain of lack [...] planning Assessment & Plan (05/20/2022 12:24 PM LONGSHORE EQUIPMENT OPERATOR): POA Pt began to complain of lack [...] 06/02/2022 Assessment & Plan (05/31/2022 10:16 AM LONGSHORE EQUIPMENT OPERATOR): - Most recent NA 134 -Continue FWFR, per oral fluid restrictions -Twice weekly BMP, at present Assessment & Plan (05/21/2022 12:30 PM LONGSHORE EQUIPMENT OPERATOR): 05/18 NA 128 last night, FW restrict 1L, he had drank almost 2L of soda the day before and NA was 127 Na 134 on AML Continue FWR Monitor daily BMP Fever 05/18/2022 05/25/2022 Assessment & Plan (05/23/2022 9:39 AM LONGSHORE EQUIPMENT OPERATOR): -Patient shivering on morning rounds 05/18 with temp up to 101.3 -Initial checks: Ua (-) -see bacteremia problem -Continues afebrile at present -Consider resolving this problem -dc daily blood cultures per ID, -findings on RUBINA discussed with Dr Perry, suture vs vegetation, she feels that its a suture, ID notified Assessment & Plan (05/20/2022 12:24 PM LONGSHORE EQUIPMENT OPERATOR): Patient shivering on morning rounds 05/18 with [...] 04/24/20222022 Assessment & Plan (05/26/2022 8:49 AM LONGSHORE EQUIPMENT OPERATOR): -POA- occurred during last admission -CTA at [...] problem Assessment & Plan (05/21/2022 12:37 PM LONGSHORE EQUIPMENT OPERATOR): POA- occurred during last admission CTA at [...] stable Assessment & Plan (05/20/2022 12:33 PM LONGSHORE EQUIPMENT OPERATOR): POA- occurred during last admission CTA at [...] stable Assessment & Plan (04/26/2022 10:20 AM LONGSHORE EQUIPMENT OPERATOR): S/p fall on 04/20 with retroperitoneal bleed [...] directed Assessment & Plan (04/24/2022 3:54 PM LONGSHORE EQUIPMENT OPERATOR): S/p fall on 04/20 with retroperitoneal bleed - imaging with no areas of active bleeding Stopped heparin drip and coumadin, not planning to restart anti-coagulation Has required multiple units of PRBC with last unit given morning of 04/23 with appropriate response to unit Leukocytosis 04/20/2022 04/25/2022 Assessment & Plan (04/25/2022 9:21 AM LONGSHORE EQUIPMENT OPERATOR): Empiric ceftriaxone ended WBC wnl Afebrile Cultures were negative CBC daily Assessment & Plan (04/24/2022 3:49 PM LONGSHORE EQUIPMENT OPERATOR): Empiric ceftriaxone ends today WBC wnl Afebrile Cultures were negative CBC daily Pain 04/18/2022 04/25/2022 Assessment & Plan (04/24/2022 3:49 PM LONGSHORE EQUIPMENT OPERATOR): Expected, due to recent surgery per redo sternotomy Ongoing PRN tylenol which he has not taken past 24 hours Ascending aortic aneurysm, u nspecified whether ruptured 03/29/2022 03/29/2022 Aortic aneurysm without rupture 03/29/2022 03/29/2022 Infectious viral hepatitis 03/29/2022 1 05/29/2021 Aneurysm of ascending aorta without rupture 03/19/2022 04/18/2022 Overview (03/24/2022): Added automatically from request for surgery [id number] Assessment & Plan (03/30/2022 8:38 AM LONGSHORE EQUIPMENT OPERATOR): History of emergent type A aortic dissection [...] setting Assessment & Plan (03/29/2022 3:33 PM LONGSHORE EQUIPMENT OPERATOR): History of emergent type A aortic dissection [...] week 05/06/2022 How often do you attend [facility] or hoahaoism services? Never 05/06/2022 Do you belong to any clubs o r organizations such as protestant groups, unions, fraternal or athletic groups, or [...] place to sleep or slept in a skilled nursing (including now)? No 05/06/2022 Personal Safety Answer Date Recorded Getting School Help Needed Not on file 10/19 /2024 Sex and Gender Information Value Date Recorded Sex Assigned at Not on file Legal Sex Male 3:56 AM LONGSHORE EQUIPMENT OPERATOR Gender Identity Male 03/27/2020 2:49 PM LONGSHORE EQUIPMENT OPERATOR Sexual Orientation Straight 03/27/2020 2: 49 PM LONGSHORE EQUIPMENT OPERATOR Occupation Industry Job Start Date Job [...] on file Medical Devices Implanted Type Area Pricing Consultant Device Identifier Shelf Expiration Date Model / Serial / Lot Terumo Cardio Vascular Gelweave 8mm 30cm Suture Retention Unique Hydrolyzable Abdomen [id number] - [id number] - [id number] Implanted:Qty: 1 on 03/31/2022 by Bhavin Bennett MD at [facility] Graft N/A: Heart [employer] [id number] 10/07/2024 [id number] / [id number] / [id number] Ter[employer]o [employer] Gelweave 30mm 30cm Suture Retention Unique Hydrolyzable Abdomen [id number] - [id number] - [id number] Implanted:Qty: 1 on 03/31/2022 by Karo Perry MD at [facility] Graft N/A: Heart [employer] [id number] 12/07/2024 [id number] / [id number] / [id number] Ter[employer]o [employer] Gelweave 10mm 30cm Suture Retention Unique Hydrolyzable Abdomen [id number] - [id number] - [id number] Implanted:Qty: 1 on 03/31/2022 by Karo Perry MD at [facility] Graft N/A: Aorta [employer] [id number] 03/09/2024 [id number] / [id number] / [id number] [employer] [id number] 56mm Limit 4 Hole Hip F Hemisphere Offset Shell Acetabular - [id number] - [id number] Implanted:Qty: 1 on 01/29/2020 by Geni March MD at [facility] Left: Hip [employer] 11/28/2029 [id number] / [id number] / [employer] [id number] Trilogy 6.5mm 40mm Self Tap Hip Acetabular Cortical Screw Bone - [id number] Implanted:Qty: 1 on 01/29/2020 by Geni March MD at [facility] Left: Hip [employer] [id number] 10/07/2028 [id number] / / [id number] [employer] [id number] 36mm Lumen Hip F Liner Acetabular Longevity Sterile Latex Free - [id number] - [id number] Implanted:Qty: 1 on 01/29/2020 by Geni March MD at [facility] Left: Hip [employer] 11/26/[id number] / / [employer] [id number] Trilogy 6.5mm 20mm Self Tap Screw Bone - [id number] Implanted:Qty: 1 on 01/29/2020 by Geni March MD at [facility] Left: Hip [employer] [id number] 09/06/2024 [id number] / / [id number] [employer] [id number] 16.25mm 129mm Primary Hip 47mm Taper Straight Extended Offset - S0 - [id number] Implanted:Qty: 1 on 01/29/2020 by Geni March MD at [facility] Left: Hip [employer] [id number] 06/09/2028 [id number] / 0 / [id number] [employer] [id number] 36mm Hip Acetabular +7mm 12/14 Xl Head Femoral Biolox Delta - S0 - [id number] Implanted:Qty: 1 on 01/29/2020 by Geni March MD at [facility] Left: Hip [employer] 06/09/2028 [id number] / 0 / [id number] [employer] [id number] Trilogy 6.5mm 30mm Self Tap Acetabular Cortical Screw Bone - [id number] Implanted:Qty: 1 on 04/08/2020 by Gein March MD at [facility] Right: Hip [employer] [id number] 11/22/2029 [id number] / / [id number] [employer] [id number] M/L 15mm 129mm 42mm Primary Hip 51mm Extend Offset Straight Taper - [id number] Implanted:Qty: 1 on 04/08/2020 by Geni March MD at [facility] Right: Hip [employer] [id number] 07/08/2027 [id number] / / [id number] [employer] [id number] 36mm Hip Acetabular +7mm 12/14 Xl Head Femoral Biolox Delta - [id number] Implanted:Qty: 1 on 04/08/2020 by Geni March MD at [facility] Right: Hip [employer] [id number] 10/07/2028 [id number] / / [id number] [employer] [id number] G7 56mm Limit 4 Hole Hip F Hemisphere Offset Shell Acetabular - [id number] Implanted:Qty: 1 on 04/08/2020 by Geni March MD at [facility] Right: Hip [employer] 11/15/2029 [id number] / / [id number] [employer] [id number] 36mm Lumen Hip F Liner Acetabular Longevity Sterile Latex Free - [id number] Implanted:Qty: 1 on 04/08/2020 by Geni March MD at [facility] Right: Hip [employer] 06/09/2024 [id number] / / [id number] [employer] [id number] Trilogy 6.5mm 40mm Self Tap Hip Acetabular Cortical Screw Bone - [id number] Implanted:Qty: 1 on 04/08/2020 by Geni March MD at [facility] Right: Hip [employer] [id number] 12/20/2029 [id number] / / [id number] [employer] Per[employer] 6x6in Patch Thk1.65mm [place] [employer] Ptfe Sterile Latex Free [id number] - [id number] Implanted:Qty: 1 on 03/31/2022 by Bhavin Bennett MD at [facility] [employer] 10/04/2026 [id number] / / [employer] Inspiris Resilia Leaflet Sewing Ring 27mm Valve Aortic Bovine [id number] - [id number] - [id number] Implanted:Qty: 1 on 03/31/2022 by Karo Perry MD at [facility] N/A: Aortic Valve [employer] [id number] 11/05/2025 [id number] / [id number] / Aortic Heart Valve-03/31/2022 Implanted:2021 (Quantity not on file) Aorta [employer] RESILIA - SIZE 27MM [id number] / [id number] / Description:Inspiris Resilia Heart Valve Prosthesis, [employer], [email or web address] Procedures Procedure Name Priority Date/Time Associated Diagnosis [...] 12:10 PM CDT Performed at: - [facility] [address] [id number] Liquid Yeast Supervisor: Luzmaria Moody MD, Phone: [phone] Karla Monroe NP LAB MICROBIOLOGY - GENER AL ORDERABLES Edited Result - Final [facility] - 01 from Last 3 Months or Most Recently Relevant to Health Maintenance Insurance [facility] Advance Directives For more information, please contact: [phone] * Full Code (Latest Code Status on [...] 12:24 PM 01/30/2020 10:07 PM Care Teams Slunk Skin Curer Relationship Specialty Start Date End Date Rose Barker PA [address] [address] PCP - General Physician Executive Sales Manager 03/02/22 Jaycob Lerner DO [address] [place] [address] Referring Physician Cardiology 03/02/22 Karo Perry MD [address] [id number] [place] [address] Surgeon Cardiothoracic Surgery 04/27/22 Unknown, Notinfile 04/27/22 Miscellaneous, Not In File 06/04/22
[2024-06-18] MEDS: HYDROmorphone HCL INJ (*CRX) 1 MG/ML SYR 0.5 MG IV PUSH (19:24)
[2024-06-18 19:27] LABS: Basophils Absolute Auto 0.1 K/mm3 (0.0-0.1); Basophils Percent Auto 0.6 % (0.2-1.2); Eosinophils Absolute Auto 0.2 K/mm3 (0-0.3); Hematocrit 51.2 % (42.0-52.0); Hemoglobin 17.2 g/dL (14.0-18.0); Immature Granulocyte Absolute 0.03 K/mm3 (0.00-0.031); Immature Granulocyte Percent A 0.4 % (0-0.5); Lymphocytes Absolute Auto 1.82 K/mm3 (0.9-3.2); Mean Corpuscular HGB Conc 33.6 g/dl (32-36); Mean Corpuscular Hemoglobin 28.2 pg (26-34); Mean Corpuscular Volume 83.8 fl (80-100); Mean Platelet Volume 9.7 fl (7.4-10.4); Monocytes Absolute Auto 0.9 K/mm3 (0.1-0.6); Monocytes Percent Auto 10.7 % (2.6-8.5); Neutrophils Absolute Auto 4.9 K/mm3 (1.3-6.7); Neutrophils Percent Auto 62.3 % (45.5-73.1); Platelet Count Result 205 k/mm3 (150-375); Red Blood Count 6.11 M/mm3 (4.6-6.20); Red Cell Distribution Width 13.5 % (11.5-14.5); White Blood Count 7.9 K/mm3 (4.5-10.0)
[2024-06-18 19:40] LABS: Alanine Aminotransferase 15 U/L (6-50); Albumin Level 4.3 g/dL (3.5-5.1); Alkaline Phosphatase 99 U/L (38-126); Anion Gap 9 mmol/L (4-12); Aspartate Amino Transferase 19 U/L (17-59); Bilirubin,Total 0.8 mg/dL (0.2-1.3); Blood Urea Nitrogen 31 mg/dL (9-20); Calcium 9.3 mg/dL (8.4-10.2); Carbon Dioxide 26 mmol/L (22-30); Chloride 103 mmol/L (98-107); Estimated CRCL calculation 63 ml/min; Estimated Glomerular Filt Rate 46; Glucose 101 mg/dL (65-110); Lipase 224 U/L (23-300); Potassium 4.1 mmol/L (3.4-5.0); Sodium 138 mmol/L (137-145)
[2024-06-18 19:42] LABS: Lactic Acid Reflex 1.3 mmol/L (0.7-2.0)
--- NOTE | 2024-06-18 19:46 | PC.NURSE ---
Pt oxygen satting 88/89% on RA. This RN placed pt on 2L NC, oxygen now 95%.
[2024-06-18 20:07] LABS: Influenza A QL RT-PCR Negative (Negative); Influenza B QL RT-PCR Negative (Negative); SARS-CoV-2 RNA PCR Negative (Negative)
[2024-06-18] MEDS: HYDROmorphone HCL INJ (*CRX) 1 MG/ML SYR IV PUSH (20:15)
[2024-06-18 20:58] VITALS: BP 177/119; PULSE 74; RESP 14; O2SAT 93
[2024-06-18 21:10] LABS: Add Urine Microscopic? YES; Appearance Urine Clear (Clear); Bacteria Urine None Seen /hpf; Bilirubin Urine Negative (Negative); Blood Urine Negative (Negative); Color Urine Yellow (Yellow); Glucose Urine UA Negative (Negative); Ketones Urine Negative (Negative); Leukocyte Esterase Ur Negative LEU/UL (Negative); Nitrate Urine Negative (Negative); Non Pathogenic Casts 0-2; Protein Urine 1+ mg/dL (Negative); RBC Urine 0-2 /hpf (0-2); Specific Grav Ur > 1.045 (1.001-1.035); Squamous Epithelial Cell Urine None Seen /hpf (Few); Urobilinogen Urine 0.2 mg/dL (<2.0); pH Urine 5.5 (5.0-9.0)
[2024-06-18] MEDS: KETOROLAC 15 MG/ML VIAL (*BKC) IV PUSH (21:33)
[2024-06-18] MEDS: TAMSULOSIN HCL 0.4 MG CAPSULE PO (21:57)
[2024-06-18] MEDS: DICYCLOMINE HCL 10 MG CAPSULE PO (21:57)
[2024-06-18 22:00] VITALS: BP 178/99; PULSE 78; RESP 14; O2SAT 98
== END 2024-06-18 22:17 | disposition home or self-care (01) ==
PROVIDERS: Student in an Organized Health Care Education/Training Program; Emergency Provider Student in an Organized Health Care Education/Training Program; PCP Physician Assistant
DX: N20.0 Calculus of kidney (principal); K57.90 Diverticulosis of intestine, part unspecified, without perforation or abscess without bleeding; K80.20 Calculus of gallbladder without cholecystitis without obstruction; R82.81 Pyuria; Z76.0 Encounter for issue of repeat prescription; N18.9 Chronic kidney disease, unspecified; Z20.822 Contact with and (suspected) exposure to COVID-19; M16.0 Bilateral primary osteoarthritis of hip; Z79.899 Other long term (current) drug therapy; Z79.82 Long term (current) use of aspirin
CPT/HCPCS: 36415; 71045; 74174; 80053; 81001; 83605; 83690; 83735; 85025; 87086; 87636; 96374; 96375; 96376; 99284; A9270; J1171; J1885; Q9967

== ENCOUNTER 2024-09-12 12:30 | Outpatient (RCR) | payer OTHER, SELFPAY ==
--- NOTE | 2024-08-23 09:55 | OPREHPOC ---
Outpatient Therapy Plan of Care This is a Multidisciplinary Plan of Care that may contain components documented by all disciplines (PT, OT, and ST.) PT Problem 1 PT Problem #1 Knowledge Deficit PT Goal 1 Goal / Goal Update *independent with HEP Target Visit 8 PT Goal 2 Goal / Goal Update * pt use good body mechanics with lifting from the floor Target Visit 8 PT Problem 2 PT Problem #2 Pain PT Goal 1 Goal / Goal Update * pain rating at worst of 3/10 Target Visit 8 PT Problem 3 PT Problem #3 Impaired Flexibility PT Goal 1 Goal / Goal Update *increase anterior hip-quad length, to improve hip positioning & decrease pull on lumbar spine: prone knee flexion 1* R 115' 2* L 120' Target Visit 8 PT Problem 4 PT Problem #4 Impaired Strength PT Goal 1 Goal / Goal Update *increase strength of trunk and hips to 4+/5, to improve stability to spine Target Visit 8 PT Goal 2 Goal / Goal Update * pt stand with trunk upright/ no flexion Target Visit 8
--- NOTE | 2024-08-23 09:55 | PTOPEVAL1 ---
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 He reports gradual increase in pain and it is less than it was initially. Oswestry self rating score of 46% limitation in activity level. Sleeping, walking and activity tolerance are disrupted due to back pain. Medical history includes bilateral THR, R lower leg numbness after cardiac surgery. With the evaluation: he has weakness over R and L hip abduction and extension muscles; stands with flexion of trunk and hips, with R side rotated forward; standing trunk flexion was the only testing position that increased his pain; tightness over anterior hip/quad muscles. Skilled PT services are indicated for modalities to decrease pain, therapeutic exercises to strengthen trunk and hips, and stretching anterior hip-quads with education for HEP and body mechanics, posture. Plan of Care Interventions Electrical Stimulation,Hot Pack/Cold Pack,Manual Therapy,Mechanical Traction,Neuro Re-education, Patient/Caregiver Education,Therapeutic Activities ,Therapeutic Exercise,Ultrasound,Other Other Interventions taping PT Services Indicated Yes Treatment Frequency and 1-2x/wk for 8 visits Duration These treatments will address the objective and functional deficits as defined above. The patient will be advanced safely and appropriately in order for the patient to progress towards his/her prior level of function. Additional exercises will be introduced and as well as a comprehensive home exercise program upon discharge, if needed, ?to ensure carryover of functional gains achieved in the clinic. This treatment plan has been reviewed and agreement upon by the patient.
--- NOTE | 2024-09-06 16:22 | PCPTNOTE ---
No call No show, reason unknown. AKCharles
--- NOTE | 2024-09-15 13:09 | OPREHPOC ---
Outpatient Therapy Plan of Care This is a Multidisciplinary Plan of Care that may contain components documented by all disciplines (PT, OT, and ST.) PT Problem 1 PT Problem #1 Knowledge Deficit PT Goal 1 Goal / Goal Update *independent with HEP -25 d/c pt canceled due to feeling better goals were not addressed Target Visit 8 PT Goal 2 Goal / Goal Update * pt use good body mechanics with lifting from the floor 25 d/c pt canceled due to feeling better goals were not addressed Target Visit 8 PT Problem 2 PT Problem #2 Pain PT Goal 1 Goal / Goal Update * pain rating at worst of 10 25 d/c pt canceled due to feeling better goals were not addressed Target Visit 8 PT Problem 3 PT Problem #3 Impaired Flexibility PT Goal 1 Goal / Goal Update *increase anterior hip-quad length, to improve hip positioning & decrease pull on lumbar spine: prone knee flexion 1* R 115' 2* L 120' --25 d/c pt canceled due to feeling better goals were not addressed Target Visit 8 PT Problem 4 PT Problem #4 Impaired Strength PT Goal 1 Goal / Goal Update *increase strength of trunk and hips to 4+/5, to improve stability to spine 25 d/c pt canceled due to feeling better goals were not addressed Target Visit 8 PT Goal 2 Goal / Goal Update * pt stand with trunk upright/ no flexion --25 d/c pt canceled due to feeling better goals were not addressed Target Visit 8
--- NOTE | 2024-09-15 13:09 | PTOPDC ---
Assessment and note entered by Bettie Ingram, PT Assessment Status Discharge - Pt Not Present ICD-10 Condition Codes (PT) Pain in low back M54.50 Onset Jun 2024 Subjective Information pt called and canceled today's reevaluation appt, stated he was doing better and did not need any more therapy. Assessment PT Clinical Summary Stephan has received 6 PT sessions. He called and canceled the reevaluation due to feeling better and not needing any more therapy. The goals were not addressed. Discharge PT services. Plan of Care PT Services Indicated No
== END 2024-09-15 16:25 | disposition home or self-care (01) ==
LOC: ANHPT 12:30
PROVIDERS: PCP Physician Assistant; Visit Provider Physician Assistant
DX: M54.50 Low back pain, unspecified (principal)
CPT/HCPCS: 97110; 97140; 97161; 97530

== ENCOUNTER 2025-02-21 12:55 | Outpatient (CLI) | payer OTHER, SELFPAY ==
--- NOTE | 2025-02-21 13:11 | ECHO_ITS ---
Patient Info Name: Stephan Martinez Age: 59 years : 1965 Gender: Male Ht: 74 in Wt: 250 lbs BSA: 2.46 m2 HR: 72 bpm BP: 142 / 91 mmHg Heart Rhythm: Sinus Rhythm Technical Quality: Fair Exam Date: 02/21/2025 1:21 PM Patient Status: O Admit Date: 02/21/2025 Exam Type: CA echo doppler color flow Complete two-dimensional, color flow and Doppler transthoracic echocardiogram is performed. Bobbin Loose End Finder: Donna Martin Attending Provider: Jaycob Lerner DO Summary 1. Complete two-dimensional, color flow and Doppler transthoracic echocardiogram is performed. 2. Left ventricular chamber dimension is normal. 3. Left ventricular systolic function is normal, estimated at 55-60. 4. There is moderate concentric increased left ventricular wall thickness. 5. The left ventricular diastolic function is grade I diastolic dysfunction. 6. E/e' 9 is minimally elevated. 7. Left atrial chamber dimension is moderately enlarged. 8. Right atrial chamber dimension is mildly enlarged. 9. Bioprosthetic aortic valve. 10. The mitral valve has a mildly calcified annulus. 11. No pulmonary hypertension, estimated pulmonary arterial systolic pressure is 15 mmHg. Left Ventricle E/e' 9 is minimally elevated. Left ventricular chamber dimension is normal. Left ventricular systolic function is normal, estimated at 55-60. There is moderate concentric increased left ventricular wall thickness. The left ventricular diastolic function is grade I diastolic dysfunction. Right Ventricle Right ventricular chamber dimension is normal. Right ventricular systolic function is normal. Left Atria Left atrial chamber dimension is moderately enlarged. Right Atria Right atrial chamber dimension is mildly enlarged. Aortic Valve The bioprosthetic aortic valve is not well visualized. There is no bioprosthetic aortic valve stenosis. There is no regurgitation of the bioprosthetic aortic valve. Bioprosthetic aortic valve. Pulmonic Valve There is no pulmonic regurgitation. Mitral Valve The mitral valve has a mildly calcified annulus. There is no mitral valve stenosis. There is no mitral valve regurgitation. Tricuspid Valve There is no tricuspid valve regurgitation. No pulmonary hypertension, estimated pulmonary arterial systolic pressure is 15 mmHg. Pericardium/Pleural There is no pericardial effusion. Inferior Vena Cava Normal inferior vena cava with >50% collapse upon inspiration consistent with normal right atrial pressure, 5 mmHg. Aorta The aortic root size at the sinus of Valsalva is normal. Left Ventricular Outflow Tract Name Value Normal LVOT 2D LVOT Diameter 2.0 cm LVOT Doppler LVOT Peak Velocity 105 cm/s LVOT Peak Gradient 4 mmHg LVOT Mean Gradient 2 mmHg LVOT VTI 18 cm LVOT VTI/AV VTI Ratio 0.7 LVOT Stroke Volume 57 ml LVOT CO 4.0 l/min LVOT CI 1.6 l/min/m2 Pulmonic Valve Name Value Normal RVOT Doppler RVOT Peak Velocity 70 cm/s RVOT Peak Gradient 2 mmHg PV Doppler PV Peak Velocity 90 cm/s PV Peak Gradient 3 mmHg Mitral Valve Name Value Normal MV Diastolic Function MV E Peak Velocity 53 cm/s MV A Peak Velocity 61 cm/s MV E/A 0.9 MV Decel Time (PW) 141 ms MV Annular TDI MV E/e' (Septal) 13.1 MV E/e' (Lateral) 7.2 MV E/e' (Average) 10.2 Tricuspid Valve Name Value Normal TV Regurgitation Doppler TR Peak Velocity 156 cm/s TR Peak Gradient 10 mmHg Estimated PAP/RSVP RA Pressure 5 mmHg <=5 PA Systolic Pressure 15 mmHg <36 RV Systolic Pressure 15 mmHg <36 TV Annular TDI TV Lateral Lolis s' Velocity 8.6 cm/s >=9.5 Aorta Name Value Normal Ascending Aorta Ao Root Diameter (MM) 2.6 cm Ao Root Diam Index (MM) 1.1 cm/m2 Aortic Valve Name Value Normal AV Doppler AV Peak Velocity 154 cm/s AV Peak Gradient 9 mmHg AV Mean Gradient 5 mmHg AV VTI 26 cm AV Area (Cont Eq VTI) 2.2 cm2 >=3.0 AV Area (Cont Eq Josr) 2.1 cm2 AV DI (Josr) 0.69 AV Regurgitation 2D LVOT Area 3.1 cm2 Ventricles Name Value Normal LV Dimensions 2D/MM IVS Diastolic Thickness (2D) 1.9 cm 0.6-1.0 LVID Diastole (2D) 4.5 cm 4.2-5.8 LVIW Diastolic Thickness (2D) 1.3 cm 0.6-1.0 LVID Systole (2D) 3.3 cm 2.5-4.0 LVOT Diameter 2.0 cm LV Mass (2D Cubed) 298.62 g 88.00-224.00 LV Mass Index (2D Cubed) 121 g/m2 49-115 Relative Wall Thickness (2D) 0.59 <=0.42 LV Fractional Shortening/Ejection Fraction 2D/MM LV Fractional Shortening (2D) 25 % 25-43 LV EF (2D Teichholz) 50 % LV Diastolic Volume (4C MOD) 111 ml LV EF (4C MOD) 48 % LV Diastolic Volume (2C MOD) 120 ml LV EF (2C MOD) 48 % LV Diastolic Volume (BP MOD) 119 ml 62-150 LV Diastolic Volume Index (BP MOD) 48 ml/m2 34-74 LV Systolic Volume (BP MOD) 64 ml 21-61 LV Systolic Volume Index (BP MOD) 26 ml/m2 11-31 LV EF (BP MOD) 46 % 52-72 LV Diastolic Length (4C) 8.6 cm LV Systolic Length (4C) 7.4 cm LV Stroke Volume (4C MOD) 53 ml Atria Name Value Normal LA Dimensions LA Dimension (MM) 6.5 cm 3.0-4.0 LA Volume (4C A-L) 63 ml LA Volume (BP A-L) 72 ml RA Dimensions RA Area (4C) 22.1 cm2 <=18.0 Report Signatures
--- OUTSIDE RECORDS SUMMARY | 2025-02-21 14:48 | XMS_ITS | Encounter Summary ---
Author Organization [facility] Healthcare Address [address] [place] [address] Care Team Providers Care Prosthetic Makeup Designer Name Role Phone Jaycob Lenrer DO Unavailable [phone] Rose Barker Primary Care Provider + Karo Perry MD Unavailable Unknown, Notinfile Unavailable Unavailable Miscellaneous, Not In File Unavailable Unava ilable Encounter Details Date Type Department Care Team (Late st Contact Info) Description 01/12/2023 Telephone [facility] [address] [place] [address] Melvi Nesbitt, LIZETTE Social History Tobacco Use Types Packs/Day Years [...] or pharmacy Never 06/05/2022 Social Connection and Isolation Panel Answer Date Recorded In a typical week, how many times do you talk on the phone with family, friends, or neighbors? More than three times a week 05/06/2022 How often do you get togethe r with friends or relatives? More than three times a week 05/06/2022 How often do you attend chur ch or restoration services? Never 05/06/2022 Do you belong to [...] place to sleep or slept in a retirement (including now)? 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 MACHINE OPERATOR Sexual Orientation Straight 03/27/2020 2: 49 PM POUNCING MACHINE OPERATOR Occupation Industry Job Start Date Job End Date Unemployed Not on file Not on file Not on file documented as of this encounter Plan of Treatment Not on file documented as of this encounter Visit Diagnoses Not on filedocumented in this encounter Care Teams Prosthetic Makeup Designer Relationship Specialty Start Date End Date Rose Barker PA [address] [place] [address] PCP - General Physician Package Pick Up 03/02/22 Jyacob Lerner DO [address] [place] [address] Referring Physician Cardiology 03/02/22 Karo Perry MD [address] [place] [address] Surgeon Cardiothoracic Surgery 04/27/22 Unknown, Notinfile 04/27/22 Miscellaneous, Not In File 06/04/22 documented as of this encounter
--- OUTSIDE RECORDS SUMMARY | 2025-02-21 14:48 | XMS_ITS | Encounter Summary ---
Author Organization [facility] Healthcare Address [address] [place] [address] Care Team Providers Care Irrigation Worker Name Role Phone Jaycob Lerner DO Unavailable [phone] Rose Barker Primary Care Provider + Karo Perry MD Unavailable Unknown, Notinfile Unavailable Unavailable Miscellaneous, Not In File Unavailable Unava ilable Encounter Details Date Type Department Care Team (Late st Contact Info) Description 01/13/2023 Telephone [facility] [address] [place] [address] Enid Batres RN Social History [...] often do you attend chur ch or bahai services? Never 05/06/2022 Do you belong to any clubs o r organizations such as latter-day groups, unions, fraternal or athletic groups, or [...] in a penitentiary (including now)? 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 Gender Identity Male 03/27/2020 2:49 PM LATEX RIBBON MACHINE OPERATOR Sexual Orientation Straight 03/27/2020 2: 49 PM LATEX RIBBON MACHINE OPERATOR Occupation Industry Job Start Date Job End Date Unemployed Not on file Not on file Not on file documented as of this encounter Plan of Treatment Not on file documented as of this encounter Visit Diagnoses Not on filedocumented in this encounter Care Teams Irrigation Worker Relationship Specialty Start Date End Date Rose Barker PA [address] [place] [address] PCP - General Physician Cathode Ray Tube Assembler 03/02/22 Jaycob Lerner DO [address] [place] [address] Referring Physician Cardiology 03/02/22 Karo Perry MD [address] [place] [address] Surgeon Cardiothoracic Surgery 04/27/22 Unknown, Notinfile 04/27/22 Miscellaneous, Not In File 06/04/22 documented as of this encounter
--- OUTSIDE RECORDS SUMMARY | 2025-02-21 14:48 | XMS_ITS | Encounter Summary ---
Author Organization [facility] Healthcare Address [address] [place] [address] Care Team Providers Care Home Stager Name Role Phone Jaycob Lerner DO Unavailable [phone] Rose Barker Primary Care Provider + Karo Perry MD Unavailable Unknown, Notinfile Unavailable Unavailable Miscellaneous, Not In File Unavailable Unava ilable Encounter Details Date Type Department Care Team (Late st Contact Info) Description 01/08/2023 Telephone [facility] [address] [place] [address] Melvi Nesbitt, LIZETTE Social History [...] often do you attend chur ch or anabaptist services? 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 Gender Identity Male 03/27/2020 2:49 PM SIGN HANGER SUPERVISOR Sexual Orientation Straight 03/27/2020 2: 49 PM SIGN HANGER SUPERVISOR Occupation Industry Job Start Date Job End Date Unemployed Not on file Not on file Not on file documented as of this encounter Plan of Treatment Not on file documented as of this encounter Visit Diagnoses Not on filedocumented in this encounter Care Teams Home Stager Relationship Specialty Start Date End Date Rose Barker PA [address] [place] [address] PCP - General Physician Horizontal Resaw Operator 03/02/22 Jaycob Lerner DO [address] [place] [address] Referring Physician Cardiology 03/02/22 Karo Perry MD [address] [place] [address] Surgeon Cardiothoracic Surgery 04/27/22 Unknown, Notinfile 04/27/22 Miscellaneous, Not In File 06/04/22 documented as of this encounter
--- OUTSIDE RECORDS SUMMARY | 2025-02-21 14:48 | XMS_ITS | Clinical Summary ---
Author Organization [facility] Address [address] [place] [address] Care Team Providers Care Development Specialist Name Role Phone Jaycob Lerner DO Unavailable [phone] Rose Barker Primary Care Provider + Karo Perry MD Unavailable Unknown, Notinfile Unavailable Unavailable Miscellaneous, Not In File Unavailable Unava ilable Allergies No known active allergies Medications aspirin 81 mg chewable tabletIndicatio ns:prevention of thrombosis Take 1 tablet (81 mg total) by mouth daily 30 tablet 11 2 Active Additional Information Patient not taking.Reported on 12/03/2022 carvediloL (COREG) 25 mg tablet Take 1 tablet (25 mg total) by mouth 2 (two) times a day with meals 60 tablet 1 3 Active amLODIPine (NORVASC) 10 mg tablet 5 Active Active Problems Problem Noted Date Diagnosed Date Nuclear sclerosis of both eyes 03/12/2023 Assessment & Plan (03/12/2023 4:07 PM CDT): Educated on minimal changes, not visually significant. Elects to continue without distance specs, to wear OTC +2.00 Readers No corneal defects, recommended goggles for protection when working with tools. Avoid drops that get the red out, use ATs PRN Lesion of right lower eyelid 03/12/2023 Assessment & Plan (06/06/2023 12:53 AM MILIEU COUNSELOR): Risks, benefits and alternatives were discussed. Risks [...] visit. Assessment & Plan (07/10/2022 10:13 AM MILIEU COUNSELOR): - Plan to continue IV Cefepime at [...] concerns Assessment & Plan (06/12/2022 12:55 PM MILIEU COUNSELOR): - Plan to continue IV Cefepime at [...] concerns Assessment & Plan (06/02/2022 11:06 AM MILIEU COUNSELOR): - Appreciate ID consult 05/20 w/ sign [...] c/b retroperitoneal bleed and afib). Discharged to [facility] 04/29/2022 and signed out AMA 05/02. He fell at home and found to have R iliacus and body wall hematoma that had slightly decreased from 04/2022 scan. Transferred to [facility] 05/04. ....Plan will be for at least 6 weeks of cefepime and consider a PET as outpatient to evaluate if need for suppression. RUBINA done 05/22 (result pending). Follow Up Plan: fax results to [phone], follow up with Dr. Maryanne KNOX in 2 weeks, After discharge additional questions can be directed to the clinic at [phone], and Patient has been educated about the risks and benefits of IV antibiotics (OPAT) Assessment & Plan (05/21/2022 12:17 PM MILIEU COUNSELOR): 05/18 Blood cultures positive PSEUDOMONAS AERUGINOSA 2 [...] vegetations Assessment & Plan (05/20/2022 12:42 PM MILIEU COUNSELOR): 05/18 Blood cultures positive PSEUDOMONAS AERUGINOSA 2 of 2 bottles sensitive to cefepime ID consult placed 05/19 - waiting on input but for now continue cefepime and vancomycin Monitor vanc trough Daily blood cultures until negative 48 hours. Depression 05/20/2022 Assessment & Plan (05/22/2022 8:56 AM MILIEU COUNSELOR): -Patient's mood is very low given long hospitalization and now bacteremia. (History of tearful & feeling depressed) -Ongoing celexa (w baseline QTc) -patient is Rastafarian and is agreeable to having Spiritual care support Assessment & Plan (05/21/2022 12:29 PM MILIEU COUNSELOR): Patient's mood is very low given long hospitalization and now bacteremia. He is tearful this morning. He reports feeling depressed. - started celexa - check baseline QTc - patient is Rastafarian and is agreeable to having Spiritual care come and see him Assessment & Plan (05/20/2022 12:44 PM MILIEU COUNSELOR): Patient's mood is very low given long hospitalization and now bacteremia. He is tearful this morning. He reports feeling depressed. - will start celexa - check baseline QTc - patient is Rastafarian and is agreeable to having Spiritual care come and see him Pulmonary embolism 05/18/2022 Assessment & Plan (06/03/2022 10:43 AM MILIEU COUNSELOR): -CT scan-C/A/P- (05/18) with new finding of PE - subsegmental left pulmonary embolism. There is no evidence of right heart strain. -LE venous duplex (05/19) positive right calf DVT -Goal INR 2.0-3.0 -Last night, INR = 2.2 Assessment & Plan (05/21/2022 12:36 PM MILIEU COUNSELOR): CT scan 05/18 with new finding of PE - subsegmental left pulmonary embolism. There is no evidence of right heart strain. / duplex LE, positive right calf DVT Started on low PTT heparin gtt nomogram and coumadin Continue coumadin Assessment & Plan (05/20/2022 12:26 PM MILIEU COUNSELOR): CT scan 05/18 with new finding of PE - subsegmental left pulmonary embolism. There is no evidence of right heart strain. / duplex LE, positive right calf DVT Started on low PTT heparin gtt and coumadin Continue coumadin Atrial fibrillation 04/18/2022 Assessment & Plan (06/03/2022 10:42 AM MILIEU COUNSELOR): -Most likely AF with the recent surgery 03/31/22 -Continues on Coumadin & amiodarone therapy (200 mg daily) -Continues in NSR per telemetry Assessment & Plan (05/21/2022 12:12 PM MILIEU COUNSELOR): Most likely AF with the recent surgery 03/31/22 Assessment & Plan (05/12/2022 8:04 AM MILIEU COUNSELOR): Most likely AF with the recent surgery 03/31/22 Assessment & Plan (04/28/2022 4:01 PM MILIEU COUNSELOR): -developed during his post-op stay -Received DCCV/RUBINA on 04/10 -Continue daily amiodarone, at present, plus BB therapy -No longer on anti-coagulation due to recent retroperitoneal bleed - not planning to restart -currently SR -TTE no evidence of thrombi Assessment & Plan (04/24/2022 3:54 PM MILIEU COUNSELOR): -developed during his post-op stay -Received DCCV/RUBINA on 04/10 -Continue daily amiodarone, at present, plus BB therapy -No longer on anti-coagulation due to recent retroperitoneal bleed - not planning on restarting -currently SR -ordered TTE to r/o LA thrombus Anemia 04/18/2022 Assessment & Plan (05/26/2022 8:29 AM MILIEU COUNSELOR): Expected, due to recent surgery (Post-op ABLA) Labs now switched to twice weekly, during hospital stay Consider transfusing for Hgb < 7 & symptomatic Expect slow uptrend Assessment & Plan (04/28/2022 4:01 PM MILIEU COUNSELOR): Expected, due to recent redo sternotomy (cardiac surgery) 04/20 patient with retroperitoneal hematoma s/p fall - imaging without areas of active bleeding Has required multiple units of PRBC with last unit given morning of 04/23 with appropriate response to unit Consider transfusion for Hgb < 7 and symptomatic Daily CBC, while inpatient Expect slow uptrend Continue PPI Assessment & Plan (04/24/2022 3:43 PM MILIEU COUNSELOR): Expected, due to recent redo sternotomy (cardiac [...] 04/18/2022 Assessment & Plan (06/03/2022 10:42 AM MILIEU COUNSELOR): -Ongoing coumadin therapy -Pt has Rt LE DVT (per duplex) and PE (per recent CT scan) -Goal INR ~ 2.0-3.0 -Last night, INR = 2.2 on stable dose of coumadin 8 mg -Heparin drip has been discontinued per Dr. Perry Assessment & Plan (04/25/2022 9:20 AM MILIEU COUNSELOR): Due to retroperitoneal bleeding coumadin therapy was stopped, not planning to restart resolved Assessment & Plan (04/24/2022 3:47 PM MILIEU COUNSELOR): Due to retroperitoneal bleeding coumadin therapy was stopped, not planning to restart resolved Acute on chronic renal failure 03/29/2022 Assessment & Plan (06/03/2022 10:42 AM MILIEU COUNSELOR): -Avoiding nephrotoxins, not on lasix -Creat peaked at 1.68 during past admission - creatinine up to 1.9 last night again, hold diuretics, repeat BMP in am Looks like new norm is going to be around ~1.6-1.8 -Stopped lasix related creatinine increase and ~ 9 kg below pre-admission weight Assessment & Plan (05/21/2022 12:29 PM MILIEU COUNSELOR): POA Creat peaked at 1.68 during past admission Cr 1.62 Decrease lasix to daily Cbc, BMP daily Will continue to monitor Avoid nephrotoxins Assessment & Plan (05/20/2022 12:06 PM MILIEU COUNSELOR): POA Creat peaked at 1.68 during past admission, most recent 1.31 Cr 1.53 Continue lasix bid Cbc, BMP daily Will continue to monitor Avoid nephrotoxins 05/18 NA 128 last night, FW restrict 1L, he had trank almost 2L of soda the day before and NA was 127 Na 135 on AML Assessment & Plan (04/28/2022 4:00 PM MILIEU COUNSELOR): Patient carries a history of CKD. No recent labs here On admission - Cr 03/2020 was 1.37 Appears to have developed FOZIA on CKD Cr peaked on 04/20 at 3.09 - continues to down trend with Cr 1.45 on AML Avoiding nephro-toxics Daily BMP, while inpatient Continue I &O, daily weights Lasix daily Assessment & Plan (04/24/2022 3:40 PM MILIEU COUNSELOR): Patient carries a history of CKD. No recent labs here On admission - Cr 03/2020 was 1.37 Appears to have developed FOZIA on CKD Cr peaked on 04/20 at 3.09 - continues to down trend with Cr 1.49 on AML Avoiding nephro-toxics Daily BMP, while inpatient Continue I &O, daily weights Assessment & Plan (03/29/2022 3:40 PM MILIEU COUNSELOR): Patient carries a history of CKD. No recent labs here - Cr 03/2020 was 1.37 -hold Lisinopril-HCT in lizette-operative setting -hydration with IVFs of NS at 75mL/hr in anticipation of contrast load for testing Coronary artery disease 03/19/2022 Overview (03/24/2022): Added automatically from request for surgery [id number] Assessment & Plan (04/25/2022 9:20 AM MILIEU COUNSELOR): See thoracic aortic aneurym problem, above No benjamin, related to elevated BUN/creatinine Assessment & Plan (04/18/2022 2:36 PM MILIEU COUNSELOR): See thoracic aortic aneurym problem, above No benjamin, related to elevated BUN/creatinine Primary osteoarthritis of right hip 03/12/2020 Overview (03/12/2020): Added automatically from request for surgery [id number] Hypertension 02/20/2020 Assessment & Plan (12/07/2022 8:42 AM CDT): - Referral placed to Cardiology, he states that he does not have a steam flattener. BP initially was elevated on arrival. He has stopped taking some of his antihypertensive medications. He would like to establish care. Assessment & Plan (06/03/2022 10:41 AM MILIEU COUNSELOR): Ongoing daily amlodipine and BID coreg SBP stable at 105-116/ Assessment & Plan (04/25/2022 9:20 AM MILIEU COUNSELOR): -Home meds: coreg and lisinopril-HCT -continue coreg Assessment & Plan (04/24/2022 3:47 PM MILIEU COUNSELOR): -Home meds: coreg and lisinopril-HCT -continue coreg Assessment & Plan (03/29/2022 3:37 PM MILIEU COUNSELOR): Home meds: coreg and lisinopril-HCT -continue home coreg -hold lisinopril-HCT in pre-op setting Disorder of lipid metabolism 02/20/2020 Primary osteoarthritis of left hip 12/21/2019 Overview (12/21/2019): Added automatically from request for surgery [id number] Chronic hepatitis C virus infection (CMS/HCC) Assessment & Plan (06/12/2022 1:00 PM MILIEU COUNSELOR): - Patient reports that he has not [...] up. Assessment & Plan (05/22/2022 8:54 AM MILIEU COUNSELOR): ID note (05/20) with following included: Continue outpatient follow-up with Hepatology who is taking the lead on hepatitis C treatment. Assessment & Plan (04/25/2022 9:20 AM MILIEU COUNSELOR): Patient is set to start treatment for Hep C in the next 2 weeks -follows here for Hep C Assessment & Plan (03/30/2022 8:38 AM MILIEU COUNSELOR): Patient is set to start treatment for Hep C in the next 2 weeks -follows here for Hep C Assessment & Plan (03/29/2022 3:37 PM MILIEU COUNSELOR): Patient is set to start treatment for Hep C in the next 2 weeks -follows here for Hep C Assessment & Plan (03/12/2022 4:18 PM CDT): Patient with hepatitis C, diagnosed 5-10 years ago and is treatment naive. He would like to proceed with treatment. I will get updated labs including genotype as this was last done in 2016. I will also have him undergo a [...] 05/30/2015 Assessment & Plan (06/03/2022 10:44 AM MILIEU COUNSELOR): -Post-op from 03/31/2022 for: redo sternotomy, replacement [...] below Follow up TTE should be obtained end june Assessment & Plan (05/21/2022 12:38 PM MILIEU COUNSELOR): 03/31/2022 for redo sternotomy, replacement of the [...] in transfer from OSH PT/OT Slight temp 1/4 with small effusion on CXR- discussed importance of continuing aggressive IS use Continue lasix per Dr Perry, may decrease if cr continue to uptrend - 05/21: decrease to daily Long list of SNF/rehab denials in CM notes - need for roasterman IV antibiotic now indicated, will look for LTACH Assessment & Plan (05/19/2022 8:47 AM MILIEU COUNSELOR): 03/31/2022 for redo sternotomy, replacement of the [...] in transfer from OSH PT/OT Slight temp 1/4 with small effusion on CXR- discussed importance of continuing aggressive IS use Continue lasix per Dr Perry, may decrease if cr continue to uptrend Long list of SNF/rehab denials in CM notes Assessment & Plan (04/25/2022 9:21 AM MILIEU COUNSELOR): -s/p AVR (27 bio), Ascending, shy-arch repl, [...] planning Assessment & Plan (04/24/2022 3:57 PM MILIEU COUNSELOR): -s/p AVR (27 bio), Ascending, shy-arch repl, [...] 09/19/2014 Assessment & Plan (05/30/2022 10:05 AM MILIEU COUNSELOR): -Pt reported decreased sensation in RLE- unchanged [...] patient with the contact information for the [facility] EMG lab below: --Electromyography Studies (EMG) - [phone] - Neurology will arrange outpatient followup. Please provide the contact information for the Neurology outpatient clinic below. The patient will be seeing Dr. Guan. -Neurology - Specialty [facility] [address], [address] [place] [address] Assessment & Plan (05/21/2022 12:36 PM MILIEU COUNSELOR): POA Pt began to complain of lack [...] planning Assessment & Plan (05/20/2022 12:24 PM MILIEU COUNSELOR): POA Pt began to complain of lack [...] 06/02/2022 Assessment & Plan (05/31/2022 10:16 AM MILIEU COUNSELOR): - Most recent NA 134 -Continue FWFR, per oral fluid restrictions -Twice weekly BMP, at present Assessment & Plan (05/21/2022 12:30 PM MILIEU COUNSELOR): 05/18 NA 128 last night, FW restrict 1L, he had drank almost 2L of soda the day before and NA was 127 Na 134 on AML Continue FWR Monitor daily BMP Fever 05/18/2022 05/25/2022 Assessment & Plan (05/23/2022 9:39 AM MILIEU COUNSELOR): -Patient shivering on morning rounds 05/18 with temp up to 101.3 -Initial checks: Ua (-) -see bacteremia problem -Continues afebrile at present -Consider resolving this problem -dc daily blood cultures per ID, -findings on RUBINA discussed with Dr Perry, suture vs vegetation, she feels that its a suture, ID notified Assessment & Plan (05/20/2022 12:24 PM MILIEU COUNSELOR): Patient shivering on morning rounds 05/18 with [...] 04/24/20222022 Assessment & Plan (05/26/2022 8:49 AM MILIEU COUNSELOR): -POA- occurred during last admission -CTA at OSH showed the R iliacus and body wall hematoma is slightly decreased in size since 04/20/22. CT 1: right iliacus hematoma extending along the right [...] problem Assessment & Plan (05/21/2022 12:37 PM MILIEU COUNSELOR): POA- occurred during last admission CTA at [...] stable Assessment & Plan (05/20/2022 12:33 PM MILIEU COUNSELOR): POA- occurred during last admission CTA at OSH showed the R iliacus and body wall hematoma is slightly decreased in size since 04/20/22. CT 1: right iliacus hematoma extending along the right paracolic gutter/lateral rectus muscle. This was present on MR pelvis dated 05/05/2022. The hematoma has slightly decreased in size measuring 5.0 x 7.9 cm, previously 5.2 x 8.1 cm. Monitor H/H while restarting anticoagulation - currently stable CBC daily Most recent labs have been stable Assessment & Plan (04/26/2022 10:20 AM MILIEU COUNSELOR): S/p fall on 04/20 with retroperitoneal bleed [...] directed Assessment & Plan (04/24/2022 3:54 PM MILIEU COUNSELOR): S/p fall on 04/20 with retroperitoneal bleed - imaging with no areas of active bleeding Stopped heparin drip and coumadin, not planning to restart anti-coagulation Has required multiple units of PRBC with last unit given morning of 04/23 with appropriate response to unit Leukocytosis 04/20/2022 04/25/2022 Assessment & Plan (04/25/2022 9:21 AM MILIEU COUNSELOR): Empiric ceftriaxone ended WBC wnl Afebrile Cultures were negative CBC daily Assessment & Plan (04/24/2022 3:49 PM MILIEU COUNSELOR): Empiric ceftriaxone ends today WBC wnl Afebrile Cultures were negative CBC daily Pain 04/18/2022 04/25/2022 Assessment & Plan (04/24/2022 3:49 PM MILIEU COUNSELOR): Expected, due to recent surgery per redo sternotomy Ongoing PRN tylenol which he has not taken past 24 hours Ascending aortic aneurysm, u nspecified whether ruptured 03/29/2022 03/29/2022 Aortic aneurysm without rupture 03/29/2022 03/29/2022 Infectious viral hepatitis 03/29/2022 1 05/29/2021 Aneurysm of ascending aorta without rupture 03/19/2022 04/18/2022 Overview (03/24/2022): Added automatically from request for surgery [id number] Assessment & Plan (03/30/2022 8:38 AM MILIEU COUNSELOR): History of emergent type A aortic dissection [...] setting Assessment & Plan (03/29/2022 3:33 PM MILIEU COUNSELOR): History of emergent type A aortic dissection [...] Overweight 02/20/2020 04/18/2022 Edema 09/19/2014 05/26/2022 Immunizations Immunization Administration Dates Next Due Hep B Vaccine [...] 02/20/2020 Aneurysm of ascending aorta without rupture 03/19/2022 Added automatically from [facility] uest for surgery [id number] Fever 05/18/2022 Edema 09/19/2014 Retroperitoneal bleed 04/24/2022 [...] often do you attend chur ch or pentecostal services? Never 05/06/2022 Do you belong to [...] No 05/06/2022 Personal Safety Answer Date Recorded Have you ever been in or are you currently in a harmful physical or emotional relationship or is someone making you feel afraid or unsafe? Denies 02/10/2023 Sex and Gender Information Value Date Recorded Sex Assigned at Not on file Legal Sex Male 3:56 AM MILIEU COUNSELOR Gender Identity Male 03/27/2020 2:49 PM MILIEU COUNSELOR Sexual Orientation Straight 03/27/2020 2: 49 PM MILIEU COUNSELOR Occupation Industry Job Start Date Job End [...] CDT Inhaled Oxygen Concentration - - Weight 108.9 kg (240 lb) 07/27/2024 2:55 PM CDT Height 188 cm (6' 2) 07/27/2024 2:55 PM CDT Body Mass Index 30.81 07/27/2024 2:55 PM CDT Plan of Treatment Health Maintenance Due Date Last Done Comments Colon Cancer Screening-Colonoscopy 1965 Prostate Cancer Screening-PSA 1965 Regular Well Visit/Exam 18-64 12/31/1983 Pneumococcal vaccine <65 (1 of 2 - PCV) 1984 Zoster Vaccine (1 of 2) 12/31/2015 Depression Screening 05/03/2023 05/03/2022 DTaP/Tdap/Td Vaccine (2 - Td or Tdap) 05/14/2024 05/14/2014 Covid-19 Vaccine (2 - 2024-2 6 season) 2025 10/30/2020, 10/30/2020 Influenza Vaccine (#1) 2025 04/09/2020, 2015 Hepatitis C Screening Completed 12/15/2022 , 10/01/2022, 09/28/2022, Additional history exists Medical Devices Implanted Type Area Glassworker Device Identifier Shelf Expiration Date Model / Serial / Lot Terumo Cardio V[employer] Gelweave 8mm 30cm Suture Retention Unique Hydrolyzable Abdomen [id number] - [id number] - [id number] Implanted:Qty: 1 on 03/31/2022 by Bhavin Bennett MD at [facility] Graft N/A: Heart [employer] [id number] 10/07/2024 [id number] / [id number] / [id number] Ter[employer] Gelweave 30mm 30cm Suture Retention Unique Hydrolyzable Abdomen [id number] - [id number] - [id number] Implanted:Qty: 1 on 03/31/2022 by Karo Perry MD at [facility] Graft N/A: Heart [employer] [id number] 12/07/2024 [id number] / [id number] / [id number] Ter[employer] Gelweave 10mm 30cm Suture Retention Unique Hydrolyzable Abdomen [id number] - [id number] - [id number] Implanted:Qty: 1 on 03/31/2022 by Karo Perry MD at [facility] Graft N/A: Aorta [employer] [id number] 03/09/2024 [id number] / [id number] / [id number] [employer] [id number] 56mm Limit 4 Hole Hip F Hemisphere Offset Shell Acetabular - [id number] - [id number] Implanted:Qty: 1 on 01/29/2020 by Geni March MD at [facility] Left: Hip [employer] 11/28/2029 [id number] / [id number] / [employer] [id number] Trilogy 6.5mm 40mm Self Tap Hip Acetabular Cortical Screw Bone - [id number] Implanted:Qty: 1 on 01/29/2020 by Geni March MD at [facility] Left: Hip [employer] [id number] 10/07/2028 [id number] / / [id number] [employer] [id number] 36mm Lumen Hip F Liner Acetabular Longevity Sterile Latex Free - [id number] - [id number] Implanted:Qty: 1 on 01/29/2020 by Geni March MD at [facility] Left: Hip [employer] 11/26/[id number] / / [employer] [id number] Trilogy 6.5mm 20mm Self Tap Screw Bone - [id number] Implanted:Qty: 1 on 01/29/2020 by Geni March MD at [facility] Left: Hip [employer] [id number] 09/06/2024 [id number] / / [id number] [employer] [id number] 16.25mm 129mm Primary Hip 47mm Taper Straight Extended Offset - S0 - [id number] Implanted:Qty: 1 on 01/29/2020 by Geni March MD at [facility] Left: Hip [employer] [id number] 06/09/2028 [id number] / 0 / [id number] [employer] [id number] 36mm Hip Acetabular +7mm 12/14 Xl Head Femoral Biolox Delta - S0 - [id number] Implanted:Qty: 1 on 01/29/2020 by Geni March MD at [facility] Left: Hip [employer] 06/09/2028 [id number] / 0 / [id number] [employer] [id number] Trilogy 6.5mm 30mm Self Tap Acetabular Cortical Screw Bone - [id number] Implanted:Qty: 1 on 04/08/2020 by Geni March MD at [facility] Right: Hip [employer] [id number] 11/22/2029 [id number] / / [id number] [employer] [id number] M/L 15mm 129mm 42mm Primary Hip 51mm Extend Offset Straight Taper - [id number] Implanted:Qty: 1 on 04/08/2020 by Geni March MD at [facility] Right: Hip [employer] [id number] 07/08/2027 [id number] / / [id number] [employer] [id number] 36mm Hip Acetabular +7mm 12/14 Xl Head Femoral Biolox Delta - [id number] Implanted:Qty: 1 on 04/08/2020 by Geni March MD at [facility] Right: Hip [employer] [id number] 10/07/2028 [id number] / / [id number] [employer] [id number] G7 56mm Limit 4 Hole Hip F Hemisphere Offset Shell Acetabular - [id number] Implanted:Qty: 1 on 04/08/2020 by Geni March MD at [facility] Right: Hip [employer] 11/15/2029 [id number] / / [id number] [employer] [id number] 36mm Lumen Hip F Liner Acetabular Longevity Sterile Latex Free - [id number] Implanted:Qty: 1 on 04/08/2020 by Geni March MD at [facility] Right: Hip [employer] 06/09/[id number] / / [id number] [employer] [id number] Trilogy 6.5mm 40mm Self Tap Hip Acetabular Cortical Screw Bone - [id number] Implanted:Qty: 1 on 04/08/2020 by Geni March MD at [facility] Right: Hip [employer] [id number] 12/20/2029 [id number] / / [id number] [employer] 6x6in Patch Thk1.65mm [employer] Ptfe Sterile Latex Free 306979 - [id number] Implanted:Qty: 1 on 03/31/2022 by Bhavin Bennett MD at [facility] [employer] 10/04/2026 [id number] / / [employer] Inspiris Resilia Leaflet Sewing Ring 27mm Valve Aortic Bovine [id number] - [id number] - [id number] Implanted:Qty: 1 on 03/31/2022 by Karo Perry MD at [facility] N/A: Aortic Valve [employer] [id number] 11/05/2025 [id number] / [id number] / Aortic Heart Valve-03/31/2022 Implanted:2021 (Quantity not on file) Aorta [employer] RESILIA - SIZE 27MM [id number] / [id number] / Description:Inspiris Resilia Heart Valve Prosthesis, [employer], [email or web address] Procedures Procedure Name Priority Date/Time Associated Diagnosis Comments HEPATITIS C RNA, QUANTITATIVE, PCR Routine 12/15/2022 9:25 AM CDT Chronic hepatitis C without hepatic coma (HCC) from Last 3 Months or Most [...] 12/18/2022 12:10 PM CDT Performed at: - [facility] [id number] Explosives Handler: Luzmaria Moody MD, Phone: [phone] Karla Monroe NP LAB MICROBIOLOGY - GENER AL ORDERABLES Edited Result - Final [facility] - from Last 3 Months or Most Recently Relevant to Health Maintenance Insurance [facility] Advance Directives For more information, please contact: [phone] * Full Code (Latest Code Status on [...] 12:24 PM 01/30/2020 10:07 PM Care Teams Development Specialist Relationship Specialty Start Date End Date Rose Barker PA [address] [place] [id number] PCP - General Physician Glass Embosser 03/02/22 Jaycob Lerner DO [address] [facility] [address] [place] [address] Referring Physician Cardiology 03/02/22 Karo Perry MD [address] [facility] [address] [place] [address] Surgeon Cardiothoracic Surgery 04/27/22 Unknown, Notinfile 04/27/22 Miscellaneous, Not In File 06/04/22
--- OUTSIDE RECORDS SUMMARY | 2025-02-21 14:48 | XMS_ITS | Clinical Summary ---
Author Organization 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
--- OUTSIDE RECORDS SUMMARY | 2025-02-21 14:48 | XMS_ITS | Clinical Summary ---
Author Organization [facility] Address [address] 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 This disclosure is being madepursuant to the Care Everywhere program and may not contain all information available regarding this patient. Last updated 18.[facility] Allergies No known active allergies Medications * Be aware that medications may not be up to date on this document. Alwaysverify current medications with the patient. aspirin (ASPIRIN) 81 MG tablet Take 81 mg by mouth once daily Active hydroCHLOROthia zide (HYDRODIURIL) 25 MG tablet TAKE 1 TABLET BY MOUTH EVERY DAY 30 Tab 5 12/24/2015 Active carvedilol (COREG) 25 MG tablet TAKE 1 TABLET BY MOUTH TWICE DAILY(WITH MORNING AND EVENING MEAL) 60 tablet 11 03/08/2017 Active hydroCHLOROthia zide (HYDRODIURIL) 25 MG tablet TAKE 1 TABLET BY MOUTH DAILY 30 tablet 11 04/20/2017 Active warfarin (Coumadin) 5 MG tablet Take 2 (two) tablets by mouth Two times a week 10/08/2022 Active amLODIPine (Norvasc) 5 MG tablet Take 1 (one) tablet by mouth once daily 10/09/2022 Active ciprofloxacin (Cipro) 500 MG tablet 12/03/2022 Active FeroSul 325 (65 Fe) MG tablet 10/27/2022 Activ e Active Problems Problem Noted Date Diagnosed Date [...] -Ongoing celexa (w baseline QTc) -patient is Orthodoxy and is agreeable to having Spiritual care [...] Cellulitis and abscess 05/14/2014 Overview (02/07/2015): Immunizations Immunization Administration Dates Next Due TDAP (7yrs+) 05/14/2014 [...] at Not on file Legal Sex Male 6:56 AM [employer] Gender Identity Not on file Sexual Orientation Not on file Last Filed Vital Signs Vital Sign Reading Time Taken Comments Blood Pressure 169/100 01/07/2023 7:44 AM CDT Pulse 78 01/07/2023 7:44 AM CDT Temperature 37 C (98.6 F) 05/19/2014 8:26 AM [employer] Respiratory Rate 20 01/08/2016 9:31 AM CDT Oxygen Saturation 98% 03/08/2017 9:57 AM CDT Inhaled Oxygen Concentration - - Weight 115.4 kg (254 lb 6.4 oz) 03/08/2017 9:57 AM CDT Height 188 cm (6' 2) 03/08/2017 9:57 AM CDT Body Mass Index 32.66 03/08/2017 9:57 AM CDT Plan of Treatment Health Maintenance Due Date Last Done Comments COLON MONITORING 1965 COLONOSCOPY - COLON CA SCREENING 1965 CT COLONOGRAPHY - COLON CA SCREENING 1965 FIT - COLON CA SCREENING 1965 FLEX SIG - COLON CA SCREENING 1965 HIV SCREENING 1980 HEPATITIS B VACCINE (1 of 3 - 19+ 3-dose series) 1984 PNEUMOCOCCAL VACCINE 50+ (1 of 2 - PCV) 1984 ZOSTER VACCINE (1 of 2) 12/31/2015 LIPID TESTING 10/03/2019 10/02/2014 DEPRESSION SCREENING 05/10/2024 DTAP/TDAP/TD VACCINES (2 - T d or Tdap) 05/14/2024 05/14/2014 COLOGUARD (AGES 45-75) - COL ON CA SCREENING 01/06/2025 01/06/2022 Colorectal Cancer Screening 01/06/2025 COVID-19 VACCINE (1 - 2023-2 5 season) 2025 INFLUENZA VACCINE (#1) 2025 04/09/2020 HEPATITIS C SCREENING Completed 06/20/2015 HIB VACCINE Aged Out No longer eligi ble based on patient's age to complete this topic HPV VACCINE Aged Out No longer eligi ble based on patient's age to complete this topic MENINGOCOCCAL (Group B) VACC INE SHARED DECISION-MAKING Aged Out No longer eligibl e based on patient's age to complete this topic MENINGOCOCCAL GROUPS A/C/Y/W VACCINE Aged Out No longer eligible b ased on patient's age to complete this topic Procedures Procedure Name Priority Date/Time Associated Diagnosis Comments LIPID PROFILE Routine 10/02/2014 8:39 AM CDT Leg pain, left Edema from Last 3 Months or Most Recently Relevant to Health Maintenance Results * LIPID PROFILE (10/02/2014 8:39 AM CDT) Cholesterol 159 <200 mg/dL 10/02/2014 9:02 AM CDT [facility] Triglycerides 75 <150 mg/dL 10/02/2014 9:02 AM CDT [facility] HDL Cholesterol 50 >40 mg/dL 10/02/2014 9:02 AM T [facility] LDL Calculated 94 <130 mg/dL 10/02/2014 9:02 AM T [facility] VLDL Calculated 15 <=30 mg/dL 10/02/2014 9:02 AM T [facility] Chol HDL Ratio 3.2 <4.5 10/02/2014 9:02 AM T [facility] LDL/HDL Ratio 1.9 <5.0 10/02/2014 9:02 AM T [facility] Blood BLOOD SPECIMEN / Unknown Lab Venipuncture / Unknown 10/02/2014 8:39 AM CDT 10/02/2014 8:43 AM CDT us Justin Duque MD LAB - CHEMISTRY ORDERABLES Fi nal Result [facility] [address] [place], [place] [id number] from Last 3 Months or Most Recently Relevant to Health Maintenance Additional Health Concerns Infection Onset Date Last Indicated MRSA Comment:05/17/14 abscess; poa; clinda susp 05/17/2014 05/17/2014 Insurance [facility] Advance Directives * Full Code (Latest Code Status on File) Date Activated Date Inactivated Comments 05/15/2014 2:03 AM 05/19/2014 3:07 PM
== END 2025-02-21 12:56 | disposition home or self-care (01) ==
PROVIDERS: PCP Physician Assistant; Visit Provider Internal Medicine Cardiovascular Disease
DX: I51.89 Other ill-defined heart diseases (principal); I34.81 Nonrheumatic mitral (valve) annulus calcification; I51.7 Cardiomegaly; Z95.2 Presence of prosthetic heart valve
CPT/HCPCS: 93306